=== PATIENT | female | born 1950 | race Caucasian/White ===

== ENCOUNTER 2016-04-24 09:32 | Emergency (ER) | payer OTHER ==
[~2016-04-24 09:32] MED LIST: APIX5 PO; ASPI81TA82 PO; CARB200 PO; GABA600T PO; INFL100P IV; MAGN400 PO; METO25 PO; MULT-65 PO; NORC10TA2 PO; PROT40TA PO; RANI150T PO; ZOCO40TA PO
[2016-04-24 09:47] VITALS: BP 122/67; PULSE 75; RESP 16; TEMP 98.7
[2016-04-24] MEDS ORDERED: RANI150T PO (10:20)
[2016-04-24] MEDS ORDERED: PANT40TA3 PO (10:20)
[2016-04-24] MEDS ORDERED: TEGR200T PO (10:20)
[2016-04-24] MEDS ORDERED: CARA1SUS3 PO (10:20)
[2016-04-24] MEDS ORDERED: SIMV40TA PO (10:20)
[2016-04-24] MEDS ORDERED: METO25TA3 PO (10:20)
[2016-04-24] MEDS ORDERED: ASPI81CH7 CHEW (10:20)
[2016-04-24] MEDS ORDERED: APIX5TAB PO (10:20)
[2016-04-24] MEDS ORDERED: HYDR-3535 PO (10:20)
[2016-04-24] MEDS ORDERED: GABA600T PO (10:20)
--- NOTE | 2016-04-24 10:27 | PD ---
HPI Chief Complaint: ENT Complaint Time Seen by Provider: 10:14 Travel History International Travel<30 days: No Contact w/Intl Traveler<30days: No Traveled to known affect area: No History of Present Illness HPI 66-year-old female is complaining of burning across her epigastric area and inability to swallow. She has been diagnosed with adenocarcinoma of the esophagus. She finished 28 radiation treatments about 9 days ago. About 4 days ago she started having burning across her upper chest and noted trouble with swallowing. She is able to take fluids but is unable to swallow even putting her scrambled eggs. She is currently on Pepcid, Zofran and Carafate. She has multiple other medical issues. 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 She has been blind since . She has a history of IN which she has had procedures done PFSH Past Medical History Hx Anticoagulant Therapy: Yes (81 MG ASPIRIN, DAILY) Arthritis: No Asthma: No Atrial Fibrillation: Yes Autoimmune Disease: No Blood Disorders: No Heart Rhythm Problems: No Cancer: No Cardiovascular Problems: Yes (A-FIB, CARDIAC WINDOW, ABLATION) High Cholesterol: No Chemotherapy: No Chest Pain: No Congestive Heart Failure: No COPD: No Coronary Artery Disease: Yes Diabetes: No Diminished Hearing: No Endocrine: No Gastrointestinal Disorders: Yes (CHRON'S DISEASE, GERD) GERD: No Genitourinary: No Headaches: No Hepatitis: No Hiatal Hernia: Yes (REPAIRED) Hypertension: No Immune Disorder: No Implanted Vascular Access Dvce: No Kidney Stones: Yes Musculoskeletal: Yes (CERVICAL DISCS BULDGING) Psychiatric: No Reproductive: No Respiratory: No Migraines: No Myocardial Infarction: Yes (199909/09/11) Radiation Therapy: No Renal Failure: No Seizures: Yes (RELATED TO ELECTROLYTE IMBALANCE WITH CHROHNS FLAREUP) Sickle Cell Disease: No Sleep Apnea: No Thyroid Disease: No Ulcer: No Influenza Vaccination: Yes ?: Not Menopausal: Yes : 0 Past Surgical History Abdominal Surgery: Yes (FEEDING TUBE PLACED AND REMOVED, AND REMOVED NOV 2013, [facility]) AICD: No Appendectomy: Yes Arteriovenous Shunt: No Body Medical Devices: CARDIAC STENTS, PORT LEFT CHEST Cardiac Surgery: Yes (STENTS, PORT LEFT CHEST) Cholecystectomy: Yes (1994) Coronary Stent: Yes (LEFT KNEE REPLACEMENT, THEN ABOVE KNEE AMP) Ear Surgery: No Endocrine Surgery: No Eye Surgery: No Genitourinary Surgery: No Gynecologic Surgery: No Hysterectomy: Yes Insulin Pump: No Joint Replacement: No Neurologic Surgery: No Oral Surgery: Yes (TONSILS) Pacemaker: No Thoracic Surgery: No Tonsillectomy: Yes Other Surgery: Yes (stump left) Social History Alcohol Use: Yes (WEEKENDS) Tobacco Use: Yes (QUIT 01/2016) Substance Use: No Allergies-Medications (Allergen,Severity, Reaction): Coded Allergies: Percocet (Verified Adverse Reaction, Severe, CONSTIPATION, 04/24/16) due to hx of chrons Sulfa (Verified Adverse Reaction, Severe, CRAMPS, 04/24/16) gi upset *MDRO Multi-Drug Resistant Organism (Unverified Adverse Reaction, Unknown , 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 Reported Meds & Prescriptions Reported Meds & Active Scripts Active Reported Carafate Liq (Sucralfate) 1 Gm/10 Ml Susp 1 Gm PO TID on empty stomach Eliquis (Apixaban) 5 Mg Tab 5 Mg PO BID Metoprolol Tartrate 25 Mg Tab 25 Mg PO BID Simvastatin 40 Mg Tab 40 Mg PO HS Lortab (Hydrocodone-Acetaminophen) 10-325 Mg Tab 1 Tab PO Q4H PRN Aspirin Children's (Aspirin) 81 Mg Chew 81 Mg CHEW DAILY Gabapentin 600 Mg Tab 600 Mg PO BID Tegretol (Carbamazepine) 200 Mg Tab 200 Mg PO BID Ranitidine (Ranitidine HCl) 150 Mg Tab 150 Mg PO DAILY Pantoprazole (Pantoprazole Sodium) 40 Mg Tab 40 Mg PO BID Review of Systems General / Constitutional: No: Fever, Chills Eyes: Positive: Blindness HENT: No: Headaches, Vertigo Cardiovascular: No: Chest Pain or Discomfort, Palpitations Respiratory: No: Cough Gastrointestinal: Positive: Nausea, Abdominal Pain Genitourinary: No: Urgency, Frequency Musculoskeletal: No: Myalgias Physical Exam Narrative Well-developed female SKIN: Warm and dry. HEAD: Atraumatic. Normocephalic. EYES: No scleral icterus. No injection or drainage. ENT: No nasal bleeding or discharge. Mucous membranes pink and moist. NECK: Trachea midline. No JVD. CARDIOVASCULAR: Regular rate and rhythm. No murmur appreciated. RESPIRATORY: No accessory muscle use. Clear to auscultation. Breath sounds equal bilaterally. GASTROINTESTINAL: Abdomen soft, there is epigastric tenderness without guarding or rigidity, nondistended. Hepatic and splenic margins not palpable. Radiation eagle are present in the epigastric area MUSCULOSKELETAL: No obvious deformities. No clubbing. No cyanosis. No edema. NEUROLOGICAL: Awake and alert. No obvious cranial nerve deficits. Motor grossly within normal limits. Normal speech. PSYCHIATRIC: Appropriate mood and affect; insight and judgment normal. Data Data Last Documented VS Vital Signs Date Time Temp Pulse Resp B/P Pulse Ox O2 Delivery O2 Flow Rate FiO2 04/24/16 11:19 98.3 71 16 147/72 98 Room Air Orders Electrocardiogram (04/24/16 10:24) Complete Blood Count With Diff (04/24/16 10:24) Comprehensive Metabolic Panel (04/24/16 10:24) Lipase (04/24/16 10:24) Sodium Chlor 0.9% 1000 Ml Inj (Ns 1000 M (04/24/16 10:30) Ondansetron Inj (Zofran Inj) (04/24/16 10:30) Hydromorphone Pf Inj (Dilaudid Pf Inj) (04/24/16 10:30) Pantoprazole Inj (Protonix Inj) (04/24/16 10:30) Chest, Single Ap (04/24/16 10:47) Labs Laboratory Tests Test 04/24/16 11:05 White Blood Count 1.5 TH/MM3 Red Blood Count 3.52 MIL/MM3 Hemoglobin 10.8 GM/DL Hematocrit 33.0 % Mean Corpuscular Volume 93.7 FL Mean Corpuscular Hemoglobin 30.6 PG Mean Corpuscular Hemoglobin 32.7 % Concent Red Cell Distribution Width 13.9 % Platelet Count 133 TH/MM3 Mean Platelet Volume 8.0 FL Neutrophils (%) (Auto) 42.9 % Lymphocytes (%) (Auto) 9.2 % Monocytes (%) (Auto) 46.7 % Eosinophils (%) (Auto) 0.6 % Basophils (%) (Auto) 0.6 % Neutrophils # (Auto) 0.6 TH/MM3 Lymphocytes # (Auto) 0.1 TH/MM3 Monocytes # (Auto) 0.8 TH/MM3 Eosinophils # (Auto) 0.0 TH/MM3 Basophils # (Auto) 0.0 TH/MM3 CBC Comment AUTO DIFF Differential Total Cells 100 Counted Neutrophils % (Manual) 35 % Band Neutrophils % 4 % Lymphocytes % 24 % Monocytes % 35 % Eosinophils % 2 % Neutrophils # (Manual) 0.6 TH/MM3 Differential Comment FINAL DIFF MANUAL Sodium Level 137 MEQ/L Potassium Level 3.7 MEQ/L Chloride Level 103 MEQ/L Carbon Dioxide Level 23.1 MEQ/L Anion Gap 11 MEQ/L Blood Urea Nitrogen 22 MG/DL Creatinine 1.70 MG/DL Estimat Glomerular Filtration 30 ML/MIN Rate Random Glucose 103 MG/DL Calcium Level 8.3 MG/DL Total Bilirubin 0.4 MG/DL Aspartate Amino Transf 16 U/L (AST/SGOT) Alanine Aminotransferase 14 U/L (ALT/SGPT) Alkaline Phosphatase 187 U/L Total Protein 6.1 GM/DL Albumin 2.4 GM/DL Lipase 69 U/L [facility] Medical Decision Making Medical Screen Exam Complete: Yes Emergency Medical Condition: Yes Medical Record Reviewed: Yes Differential Diagnosis Differential includes pain secondary to esophageal cancer and radiation treatment, perforated viscus, esophagitis, gastritis Narrative Course Exam is not consistent with perforation. The belly is soft. Her lab work shows neutropenia of 600. She was given Dilaudid 1 mg and had relief of the pain. I have discussed the case with Dr. Santillan covering for Dr. Ernandez. Patient had taken some Lortab at home with minimal relief of the pain. I will prescribe some Dilaudid for her to use at home as this is helped her considerably. I have also encouraged her to increase her fluids as much as possible and follow-up with ( Diagnosis Primary Impression: Adenocarcinoma of lower esophagus Scripts Hydromorphone (Dilaudid)2 Mg Tab2 Mg PO Q4H PRN (PAIN SCALE 1 TO 10) #20 TAB Ref 0 Prov:Fletcher Trevino MD 04/24/16 Disposition: 01 DISCHARGE HOME Condition: Stable Fletcher Trevino MD Apr 24, 2016 10:27
[2016-04-24] MEDS ORDERED: PANTOPRAZOLE SODIUM 40 MG VIAL IV PUSH ONE (10:30)
[2016-04-24] MEDS ORDERED: SODIUM CHLOR 0.9% 1000 ML INJ 1,000 ML IV SCH (10:30)
[2016-04-24] MEDS ORDERED: ONDANSETRON HCL 4 MG/2 ML VIAL IV PUSH ONE (10:30)
[2016-04-24] MEDS ORDERED: HYDROmorphone HCL PF 1 MG/ML VIAL IV PUSH ONE (10:30)
[2016-04-24 11:11] LABS: AUTOMATED NEUTROPHIL # 0.6 TH/MM3 (1.8-7.7); BASOPHIL % 0.6 % (0.0-2.0); EOSINOPHIL % 0.6 % (0.0-4.0); LYMPH % 9.2 % (9.0-44.0); LYMPHOCYTE # 0.1 TH/MM3 (1.0-4.8); MEAN CELL VOLUME 93.7 FL (80.0-100.0); MEAN CORPUSCULAR HEMOGLOBIN 30.6 PG (27.0-34.0); MEAN CORPUSCULAR HGB CONC 32.7 % (32.0-36.0); MONO % 46.7 % (0.0-8.0); NEUT % 42.9 % (16.0-70.0); PLATELET COUNT 133 TH/MM3 (150-450); RED BLOOD COUNT 3.52 MIL/MM3 (4.00-5.30); RED CELL DISTRIBUTION WIDTH 13.9 % (11.6-17.2); WHITE BLOOD COUNT 1.5 TH/MM3 (4.0-11.0)
[2016-04-24 11:19] VITALS: BP 147/72; PULSE 71; RESP 16; TEMP 98.3; O2SAT 98
[2016-04-24 11:20] LABS: CHLORIDE 103 MEQ/L (98-107); POTASSIUM 3.7 MEQ/L (3.5-5.1); SODIUM (NA) 137 MEQ/L (136-145)
[2016-04-24 11:21] LABS: HEMO FLAGS AUTO DIFF
[2016-04-24 11:23] LABS: ANION GAP 11 MEQ/L (5-15); BICARBONATE 23.1 MEQ/L (21.0-32.0)
[2016-04-24 11:24] LABS: BLOOD UREA NITROGEN 22 MG/DL (7-18)
[2016-04-24 11:26] LABS: ALT (GPT) 14 U/L (10-53); AST (GOT) 16 U/L (15-37)
[2016-04-24 11:27] LABS: GLOMERULAR FILTRATION RATE 30 ML/MIN (>89)
[2016-04-24 11:28] LABS: TOTAL BILIRUBIN ADULT 0.4 MG/DL (0.2-1.0)
[2016-04-24 11:29] LABS: ALKALINE PHOSPHATASE 187 U/L (45-117)
--- NOTE | 2016-04-24 11:41 | RADHPO ---
EXAM DATE/TIME: 04/24/2016 11:30 [facility] COMPARISON: CHEST SINGLE AP, July 16, 2015, 14:16. INDICATIONS : Upper chest and throat pain. MEDICAL HISTORY : Hypertension. Carcinoma, esophageal. SURGICAL HISTORY : Port placement, left chest. ENCOUNTER: Subsequent ACUITY: 2 days PAIN SCORE: 5/10 LOCATION: Bilateral upper chest middle esophagus FINDINGS: Left port catheter tip overlies the SVC. Cardiomegaly. No definite consolidation or effusion. CONCLUSION: No acute disease. Harvey Gomez MD on April 24, 2016 at 11:39 Board Certified Radiologist. This report was verified electronically.
[2016-04-24 11:49] LABS: BANDS 4 % (0-6); EOSINOPHILS 2 % (0-4); NEUTROPHIL # MANUAL DIFF 0.6 TH/MM3 (1.8-7.7); POLYS (SEG NEUTROPHILS) 35 % (16-70); SCAN/DIFF FINAL DIFF MANUAL; WBC DIFF SAMPLE 100
[2016-04-24] MEDS ORDERED: DILA2TAB2 PO (12:29)
[2016-04-24 12:39] VITALS: RESP 16
[2016-04-24 13:13] VITALS: BP 140/70
--- NOTE | 2016-04-25 17:55 | EKG ---
Date Performed: 04/24/2016 Time Performed: 10:34:00 PTAGE: 66 years EKG: Sinus rhythm Left axis deviation rSr'(V1) - probable normal variant Inferior infarct - age undetermined Possible anterior infarct - age undetermined LVH with secondary repolarization abnormality Lateral ST-T change s may be due to hypertrophy and/or ischemia When compared to previous tracing, patient is no longer T achycardic. Abnormal ECG PREVIOUS TRACING : 07/16/2015 22.30 DOCTOR: Rachana Ugarte Interpretating Date/Time 04/25/2016 17:54:49
[2016-06-24] MEDS ORDERED: HYDR-3583 PO (13:16)
[2016-08-19] MEDS ORDERED: HYDR-3583 PO (13:12)
== END 2016-04-24 13:15 | disposition home or self-care (01) ==
LOC: PHED 09:32
DX: C15.5 Malignant neoplasm of lower third of esophagus (principal); I48.91 Unspecified atrial fibrillation; K50.90 Crohn's disease, unspecified, without complications; I10 Essential (primary) hypertension; Z87.442 Personal history of urinary calculi; I25.2 Old myocardial infarction
CPT/HCPCS: 71010; 80053; 83690; 85007; 85027; 93005; 96361; 96374; 96375; 99284; C9113; J1170; J1642; J2405; J7030

== ENCOUNTER 2016-07-27 12:12 | Day surgery (SDC) | payer OTHER ==
[~2016-07-27 12:12] MED LIST changes: -APIX5 PO; +APIX5TAB PO; +ASPI81CH7 CHEW; -ASPI81TA82 PO; +CARA1SUS3 PO; -CARB200 PO; +DILA2TAB2 PO; +HYDR-3535 PO; +HYDR-3583 PO; -INFL100P IV; -MAGN400 PO; -METO25 PO; +METO25TA3 PO; -MULT-65 PO; -NORC10TA2 PO; +PANT40TA3 PO; -PROT40TA PO; +SIMV40TA PO; +TEGR200T PO; -ZOCO40TA PO
[2016-07-27 13:26] VITALS: BP 150/78; PULSE 53; RESP 20; TEMP 98; O2SAT 90
[2016-07-27 14:14] LABS: AUTOMATED NEUTROPHIL # 4.2 TH/MM3 (1.8-7.7); BASOPHIL % 0.7 % (0.0-2.0); EOSINOPHIL # 0.2 TH/MM3 (0-0.4); EOSINOPHIL % 3.9 % (0.0-4.0); HEMATOCRIT 36.7 % (35.0-46.0); HEMO FLAGS DIFF FINAL; LYMPH % 8.2 % (9.0-44.0); LYMPHOCYTE # 0.5 TH/MM3 (1.0-4.8); MEAN CELL VOLUME 105.2 FL (80.0-100.0); MEAN CORPUSCULAR HEMOGLOBIN 35.7 PG (27.0-34.0); MEAN CORPUSCULAR HGB CONC 33.9 % (32.0-36.0); MONO % 11.5 % (0.0-8.0); NEUT % 75.7 % (16.0-70.0); PLATELET COUNT 224 TH/MM3 (150-450); RED BLOOD COUNT 3.49 MIL/MM3 (4.00-5.30); RED CELL DISTRIBUTION WIDTH 17.1 % (11.6-17.2); WHITE BLOOD COUNT 5.5 TH/MM3 (4.0-11.0)
[2016-07-27 14:27] LABS: APTT (PATIENT) 55.9 SEC (24.3-30.1)
[2016-07-27 15:45] VITALS: BP 167/87; PULSE 58; RESP 20; O2SAT 90
[2016-07-27 16:00] VITALS: BP 159/78; PULSE 59; RESP 20; O2SAT 91
[2016-07-27] MEDS ORDERED: HEPARIN SODIUM - IV 10,000 UNITS/10 ML VIAL OTHER ONE (16:15)
--- NOTE | 2016-07-27 16:45 | RADRPT ---
EXAM DATE/TIME: 07/27/2016 16:01 [facility] COMPARISON: CHEST SINGLE AP, April 24, 2016, 11:30. INDICATIONS : S/p left side thoracentesis MEDICAL HISTORY : Carcinoma, esophageal. SURGICAL HISTORY : None. ENCOUNTER: Initial ACUITY: 1 day PAIN SCORE: 0/10 LOCATION: Left cranial FINDINGS: A single view of the chest demonstrates bilateral pleural effusions, left greater than right with con comitant atelectatic changes in the bases. No pneumothorax post reported thoracentesis. Left IJ Infus e-a-Port catheter is stable in position with the tip projecting over the central venous system. Heart size is prominent. Osseous structures are intact with a dextroscoliosis of the thoracolumbar spine. Findings of a coil mesh repair of a presumed anterior abdominal wall hernia.CONCLUSION: 1. Bilateral pleural effusions, left greater than right. Concomitant bibasilar atelectatic changes. 2. No pneumothorax post thoracentesis.. Son Cross MD on July 27, 2016 at 16:41 Board Certified Radiologist. This report was verified electronically.
[2016-07-27 17:06] LABS: TOTAL PROTEIN,PLEURAL FLUID 1.9 GM/DL
--- NOTE | 2016-07-27 17:58 | RADRPT ---
EXAM DATE/TIME: 07/27/2016 15:03 [facility] COMPARISON: No previous studies available for comparison. EXTERNAL COMPARISON : [facility], CT Chest, 06/10/16 and 12/10/15. [facility], Chest xray 10/20/11. INDICATIONS : Pleural effusion, bilateral. MEDICAL HISTORY : Blindness. [place]. Afib. GERD. Crohn's disease. cad. SURGICAL HISTORY : Left leg amputation. Left knee replacement. Hiatel hernia. Feed tube placement and removal. Appen dectomy. Cardiac stent. Left chest port. Hysterectomy. Tonsillectomy. ENCOUNTER: Initial ACUITY: 1 day PAIN SCORE: 0/10 LOCATION: Right chest MEASUREMENTS: SKIN TO PARIETAL PLEURA: 1.3 cm SKIN TO MAX SAFE DEPTH: 4.5 cm ESTIMATED FLUID VOLUME: 531 cc FLUID COMPOSITION: simple FINDINGS: Pleural effusion as above. A david was placed on the skin surface superficial to the pleural fluid col lection. CONCLUSION: Pleural margin as described above.. Bipin Del Rosario MD FACR on July 27, 2016 at 17:56 Board Certified Radiologist. This report was verified electronically.
--- NOTE | 2016-07-27 17:58 | RADRPT ---
EXAM DATE/TIME: 07/27/2016 15:03 [facility] COMPARISON: No previous studies available for comparison. EXTERNAL COMPARISON : [facility], CT THORAX, W/O CONTRAST, June 10, 2016[facility] INDICATIONS : Pleural effusion bilatera. MEDICAL HISTORY : Blindness. [place]. Afib. GERD. Crohn's disease. cad. SURGICAL HISTORY : Left leg amputation. Hiatel hernia. Feeding tube placed and removal. A ppendectomy. Cardiac stent. Left chest port. Left knee replacement. Hysterectomy. Tonsillectomy. ENCOUNTER: Initial ACUITY: 1 day PAIN SCORE: 0/10 LOCATION: Left chest MEASUREMENTS: SKIN TO PARIETAL PLEURA: 1.3 cm SKIN TO MAX SAFE DEPTH: 3.4 cm ESTIMATED FLUID VOLUME: 475 cc FLUID COMPOSITION: simple FINDINGS: Pleural effusion as above. A david was placed on the skin surface superficial to the pleural fluid col lection. CONCLUSION: Pleural marking as described above. Bipin Del Rosario MD FACR on July 27, 2016 at 17:57 Board Certified Radiologist. This report was verified electronically.
[2016-07-27 18:04] LABS: PLEURAL FLUID LYMPHS 42 %; PLEURAL FLUID PH 7.5
--- NOTE | 2016-07-27 18:45 | MR ---
cc: CHRISTINE TODD DATE 07/27/2016 PROCEDURE Left thoracentesis. PREOPERATIVE DIAGNOSIS Left pleural effusion. PROCEDURE Informed consent was obtained from the patient. The procedure and the complications including complications of as needed, pneumothorax requiring chest tube, bleeding complications, injury to blood vessels, lungs, nerves, arrhythmia, hypoxia were explained and she consented for the procedure. The left side of the chest was marked with ultrasound and it was cleaned with Chloraprep 1%. Lidocaine infiltration anesthesia was used with a 16 gauge catheter. Thoracentesis was done, yellow fluid was obtained. It was hooked to a vacuum bottle and about 200 cc of fluid was removed, then the fluid stopped coming and the procedure was terminated. She tolerated the procedure well. Pleural fluid sent for protein, glucose, LDH, cell count and differential, routine culture and cytology. Postprocedure chest x-ray ordered to rule out pneumothorax. MD LATRICE Arellano/NASRA /3:47 PM /6:25 PM
--- NOTE | 2016-07-28 10:07 | MH ---
cc: DO Evan CARDOZO MD, ARJUN DATE OF ADMISSION 07/27/2016 DATE OF 1950 CHIEF COMPLAINT The patient will come for thoracentesis on 07/27/2016 HISTORY OF PRESENT ILLNESS Ms. Pete is a 66 year old female who is blind since . She has a history of cancer of the esophagus. She has received 20 radiation treatments and six chemotherapy treatments. She is following with Dr. Vipin Escamilla. She had a CT scan of the chest done which shows she has moderate bilateral pleural effusion with compressive atelectasis. No large soft tissue metastasis. She had a PET scan done which shows mild ectasia in the esophagus with SUV of 3.58 and has increasing bilateral pleural effusion. She denies any shortness breath. Does not have cough or sputum. No fever or chills. No night sweats. PAST MEDICAL HISTORY 1. History of COPD. 2. Cancer of the esophagus status post chemotherapy and radiation therapy 3. Seizure disorder, 4. Atrial fibrillation status post cardioversion. 5. History of coronary artery disease status post [place], 6. Hypertension, 7. Chronic kidney disease, 8. Crohn's disease 9. Raynaud's disease. 10. History of disk fusion 11. History of knee surgery which was complicated by infection and she required a left above-knee amputation 12. History of pericardial window placement. 13. History of cholecystectomy. MEDICATIONS 1. Eliquis 5 mg twice a day 2. Simvastatin 40 mg a day. 3. Protonix 40 mg a day. 4. Metoprolol 25 mg twice a day. 5. [place] 10/325 mg a day. 6. Neurontin 600 mg twice a day. 7. Tegretol 200 mg twice a day. ALLERGIES SULFA SOCIAL HISTORY She has 30 year history of smoking half a pack a day which she quit one year ago. No alcohol abuse. She is retired. 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 FAMILY HISTORY She is for 34 years. She has no children. Has one brother. Both parents are . Father with lymphoma. REVIEW OF SYSTEMS She denies any weight loss, fever or chills, no night sweats. No nausea or vomiting. PHYSICAL EXAMINATION GENERAL: An elderly female not in acute distress. VITAL SIGNS: Blood pressure 126/74, heart rate 67, respirations 16, oxygen saturation 96%. HEENT: She is blind from both eyes. Oral mucosa and nasal mucosa normal. NECK: Supple. JVP not raised. CHEST: She has dull percussion with decreased breath sounds at both bases. CARDIOVASCULAR: S1, S2 normal. ABDOMEN: Benign. EXTREMITIES: She has left AKA. IMPRESSION 1. Bilateral pleural effusion. 2. atelectasis 3. Chronic obstructive pulmonary disease 4. Seizure disorder. 5. Atrial fibrillation status post cardioversion 6. Hypotension. 7. Coronary artery disease status post stent placement 8. History of cancer of the esophagus status post chemotherapy and radiation therapy. 9. Raynaud's disease 10. Crohn's disease 11. Status post left AKA. 12. History of the pericardial effusion. PLAN I discussed with the patient and her she will need thoracentesis. I explained to them the procedure and the complications including complication of anesthesia, pneumothorax requiring chest tube, bleeding complication, injury to the blood vessels, lungs, nerves, arrhythmia, hypoxia which she understands well and wants to proceed with it. She will hold Eliquis for two days. We will send the pleural fluid for protein, glucose, LDH, Cell count and differential. Further treatment will depend on the result of the above. MD LATRICE Arellano/ /9:45 PM /10:05 AM MTDMarbin
[2016-08-19] MEDS ORDERED: HYDR-3583 PO (13:12)
[2016-10-19] MEDS ORDERED: HYDR-3583 PO (11:44)
== END 2016-07-27 16:30 | disposition home or self-care (01) ==
LOC: HROP 12:12 → HRIP 12:16 → HROP 16:30
PROVIDERS: ATTEND Specialist
DX: J90 Pleural effusion, not elsewhere classified (principal); J44.9 Chronic obstructive pulmonary disease, unspecified; I25.10 Atherosclerotic heart disease of native coronary artery without angina pectoris; I48.91 Unspecified atrial fibrillation; I25.2 Old myocardial infarction; I12.9 Hypertensive chronic kidney disease with stage 1 through stage 4 chronic kidney disease, or unspecified chronic kidney disease; N18.9 Chronic kidney disease, unspecified; K21.9 Gastro-esophageal reflux disease without esophagitis; K50.90 Crohn's disease, unspecified, without complications; I95.9 Hypotension, unspecified; I73.00 Raynaud's syndrome without gangrene; H54.0 Blindness, both eyes; G40.909 Epilepsy, unspecified, not intractable, without status epilepticus; Z79.01 Long term (current) use of anticoagulants; Z95.5 Presence of coronary angioplasty implant and graft; Z85.01 Personal history of malignant neoplasm of esophagus; Z92.21 Personal history of antineoplastic chemotherapy; Z92.3 Personal history of irradiation; Z87.891 Personal history of nicotine dependence; Z90.49 Acquired absence of other specified parts of digestive tract; Z90.710 Acquired absence of both cervix and uterus; Z89.612 Acquired absence of left leg above knee
CPT/HCPCS: 71010; 76604; 82945; 82947; 83615; 83986; 84155; 84157; 85025; 85610; 85730; 87070; 87205; 88112; 88305; 89051; J1642; J1644; 32554

== ENCOUNTER → 2016-12-28 | Day surgery (SDC) | payer OTHER ==
[~2016-12-28] MED LIST changes: +ACETYLCYSTEINE 20% 6,000 MG/30 ML ORAL SOLN VIAL ONE; +ALUMINUM/MAGNESIUM/SIMETH 30 ML CUP ONE; -DILA2TAB2 PO; -HYDR-3535 PO; +LIAL1.2T PO; +LIDO1SOL8 SWISH-SWAL; +MEDR4PAK PO; +MEPERIDINE HCL 25 MG/ML VIAL ONE; +PROPOFOL 200 MG/20 ML AMP IV ONE; +STERILE WATER FOR INJECTION 20 ML VIAL ONE
--- NOTE | 2016-12-28 10:23 | GIPROC ---
[facility] [address] [facility], [address] EGD PROCEDURE REPORT EXAM DATE: 12/28/2016 PATIENT NAME: Hortensia Pete V MR #: [id number] BIRTHDATE: 1950 ATTENDING: Ronda Persaud MD ORDER #: [id number] FINISHING AREA OPERATOR: Zuly Nelson RN STATUS: outpatient INDICATIONS: The patient is a 66 yr old female here for an EGD due to He's high grade dysplasia PROCEDURE PERFORMED: EGD w/ ablation MEDICATIONS: None and Per Anesthesia. TOPICAL ANESTHETIC: CONSENT: The patient understands the risks and benefits of the procedure and understands that these risks include, but are not limited to: sedation, allergic reaction, infection, perforation and/or bleeding. Alternative means of evaluation and treatment include, among others: physical exam, x-rays, and/or surgical intervention. The patient elects to proceed with this endoscopic procedure. medical equipment was checked for proper function. Hand hygiene and appropriate measures for infection prevention was taken. After the risks, benefits and alternatives of the procedure were thoroughly explained, Informed consent was verified, confirmed and timeout was successfully executed by the treatment team. The patient was anesthetized with topical anesthesia and the EG-[id number] ([id number]) and [id number] ([id number]) endoscope was introduced through the mouth and advanced to the second portion of the duodenum. Retroflexed views revealed a hiatal hernia The gastroscope was then slowly withdrawn and removed. ESOPHAGUS: There was a 5cm segment of He's esophagus found in the distal esophagus. The length of circumferential He's was 3cm ([place] C3) and the length of Maximal extent of He's was 5cm ([place] M5). There was no nodular mucosa noted in the He's segment. RFA procedure: Given the above findings, the decision was made to treat the He's esophagus with endoscopic ablation, using the Halo 90 cap device. The cap ablation device was placed on the endoscope and the esophagus was treated at 10J/cm2. RF ablation of the circumferential He's tissue and of all He's tissue was performed. Each area was treated x 2, the ablation zone was cleaned of coagulative debris with the ablation device, irrigation and suction using the endoscope. The area was then treated x 2 again until a chamois colored area was observed at the site of treatment. A total of 16 ablations were performed. STOMACH: There was erythematous moderate gastritis in the gastric antrum. DUODENUM: The duodenal mucosa appeared normal in the bulb and second portion of the duodenum. ADVERSE EVENTS: There were no complications. IMPRESSIONS: 1. There was a 5cm segment of He's esophagus found in the distal esophagus; RF ablation of the circumferential He's tissue and of all He's tissue was performed 2. There was erythematous gastritis in the gastric antrum 3. Normal duodenal mucosa in the bulb and second portion of the duodenum 4. Retroflexed views revealed a hiatal hernia RECOMMENDATIONS: 1. Await biopsy results. Biopsy results will not be ready for 7-10 days. If you don't hear from us in two weeks, call our office for biopsy results. 2. Anti-reflux regimen 3. Continue PPI 4. Avoid NSAIDS PATIENT CONDITION: stable DISPOSITION: Home REPEAT EXAM: Return 3 months EGD Ronda Persaud MD eSigned: Ronda Persaud MD 12/28/2016 10:23 AM cc: Marty Chavez [facility] Katheryn Connolly M.D. PATIENT NAME: Hortensia Pete V MR#: [id number]
== END | disposition home or self-care (01) ==
LOC: ESDC 08:06
PROVIDERS: ATTEND Internal Medicine Gastroenterology
DX: K22.711 Barrett's esophagus with high grade dysplasia (principal); K29.70 Gastritis, unspecified, without bleeding; K44.9 Diaphragmatic hernia without obstruction or gangrene
CPT/HCPCS: 00740; 43270; J1642; J2175

== ENCOUNTER → 2017-02-02 | Outpatient (CLI) | payer OTHER ==
[~2017-02-02] VITALS: Ht 162.6 cm; Wt 59.0 kg
[~2017-02-02] MED LIST changes: -ACETYLCYSTEINE 20% 6,000 MG/30 ML ORAL SOLN VIAL ONE; -ALUMINUM/MAGNESIUM/SIMETH 30 ML CUP ONE; +CHLORHEXIDINE GLUCONATE 2 % 1 PACK (2 CLOTHS) TOPICAL PRN; +INSULIN HUMAN REGULAR 1,000 UNITS/10 ML VIAL SQ PRN; +LACTATED RINGER'S 1000 ML IV PRN; -MEDR4PAK PO; -MEPERIDINE HCL 25 MG/ML VIAL ONE; +METOPROLOL TARTRATE 25 MG TAB PO PRN; +POVIDONE IODINE 5% (ANTISEPSIS KIT) 4 APPLICATIONS EACH NARE PRN; +SODIUM CHLORID 0.9% 500 ML IV PRN; -STERILE WATER FOR INJECTION 20 ML VIAL ONE
--- NOTE | 2017-02-02 11:13 | GIPROC ---
[facility] [address] [facility]. [facility], [address] EGD PROCEDURE REPORT EXAM DATE: 02/02/2017 PATIENT NAME: Hortensia Pete V MR #: [id number] BIRTHDATE: 1950 ATTENDING: Ronda Persaud MD ORDER #: [id number] WINDOW SHADE INSTALLER: Carey Veronica RN STATUS: outpatient INDICATIONS: The patient is a 67 yr old female here for an EGD due to history of esophageal reflux, history of He's esophagus, and dysphagia PROCEDURE PERFORMED: EGD, diagnostic MEDICATIONS: None and Per Anesthesia. TOPICAL ANESTHETIC: CONSENT: The patient understands the risks and benefits of the procedure and understands that these risks include, but are not limited to: sedation, allergic reaction, infection, perforation and/or bleeding. Alternative means of evaluation and treatment include, among others: physical exam, x-rays, and/or surgical intervention. The patient elects to proceed with this endoscopic procedure. medical equipment was checked for proper function. Hand hygiene and appropriate measures for infection prevention was taken. After the risks, benefits and alternatives of the procedure were thoroughly explained, Informed consent was verified, confirmed and timeout was successfully executed by the treatment team. The patient was anesthetized with topical anesthesia and the Pentax EG-[id number] endoscope was introduced through the mouth and advanced to the second portion of the duodenum. Retroflexed views revealed a hiatal hernia The gastroscope was then slowly withdrawn and removed. ESOPHAGUS: There was [place] Class C esophagitis noted. There was a 4cm segment of He's esophagus found in the distal esophagus. The length of circumferential He's was 4cm ([place] C4) and the length of Maximal extent of He's was 4cm ([place] M4). STOMACH: There was erythematous moderate gastritis in the gastric antrum. DUODENUM: The duodenal mucosa appeared normal in the bulb and second portion of the duodenum. ADVERSE EVENTS: There were no complications. IMPRESSIONS: 1. There was [place] Class C esophagitis noted 2. There was a 4cm segment of He's esophagus found in the distal esophagus 3. There was erythematous gastritis in the gastric antrum 4. Normal duodenal mucosa in the bulb and second portion of the duodenum 5. Retroflexed views revealed a hiatal hernia RECOMMENDATIONS: 1. Anti-reflux regimen 2. Continue PPI 3. Avoid NSAIDS PATIENT CONDITION: stable DISPOSITION: Home REPEAT EXAM: Return 3 months EGD Ronda Persaud MD eSigned: Ronda Persaud MD 02/02/2017 11:12 AM cc: Natasha Garcia M.D. PATIENT NAME: Hortensia Pete V MR#: [id number]
[2017-02-02 11:24] VITALS: BP 123/79; PULSE 94; RESP 18; TEMP 96.9; O2SAT 99
== END ==
LOC: HSDC 08:04
PROVIDERS: ATTEND Internal Medicine Gastroenterology
DX: K21.9 Gastro-esophageal reflux disease without esophagitis (principal); K22.70 Barrett's esophagus without dysplasia; R13.10 Dysphagia, unspecified; K44.9 Diaphragmatic hernia without obstruction or gangrene; K20.9 Esophagitis, unspecified; K29.70 Gastritis, unspecified, without bleeding

== ENCOUNTER 2017-04-20 22:38 | Inpatient (IN) | payer OTHER, MEDICARE ==
[~2017-04-20] VITALS: Ht 162.6 cm; Wt 84.0 kg
[~2017-04-20 22:38] MED LIST changes: -CHLORHEXIDINE GLUCONATE 2 % 1 PACK (2 CLOTHS) TOPICAL PRN; -INSULIN HUMAN REGULAR 1,000 UNITS/10 ML VIAL SQ PRN; -LACTATED RINGER'S 1000 ML IV PRN; -METOPROLOL TARTRATE 25 MG TAB PO PRN; -POVIDONE IODINE 5% (ANTISEPSIS KIT) 4 APPLICATIONS EACH NARE PRN; -PROPOFOL 200 MG/20 ML AMP IV ONE; -SODIUM CHLORID 0.9% 500 ML IV PRN
[2017-04-20 22:45] VITALS: BP 118/57; PULSE 84; RESP 18; TEMP 98.9; O2SAT 96
[2017-04-20] MEDS ORDERED: SODIUM CHLOR 0.9% 1000 ML INJ 1,000 ML IV SCH (22:48)
[2017-04-20] MEDS ORDERED: ONDANSETRON HCL 4 MG/2 ML VIAL IVP ONE (23:00)
[2017-04-20] MEDS ORDERED: SODIUM CHLORIDE 0.9% FLUSH 10 ML FLUSH IV FLUSH PRN (23:00)
[2017-04-20] MEDS ORDERED: OMEP20TA93 PO (23:02)
[2017-04-20] MEDS ORDERED: LOMO2.5T PO (23:02)
--- NOTE | 2017-04-20 23:17 | PD ---
HPI Chief Complaint: GI Complaint Time Seen by Provider: 22:42 Travel History International Travel<30 days: No Contact w/Intl Traveler<30days: No Traveled to known affect area: No History of Present Illness HPI 67-year-old female with history of blindness, CAD with cardiac stents, Crohn's disease, esophageal cancer status post chemotherapy and radiation followed by oncologist Ludy Tay on Eliquis, Raynaud's, left AKA, hypertension, brought in by ambulance from home for evaluation of nausea, vomiting, diarrhea, and abdominal pain. Symptoms have been going on since yesterday evening. Patient's who has some degree of blindness states that her emesis looked clear/oranges and he did not notice any blood. Currently the patient denies abdominal pain, however the patient's reports that she has been complaining of abdominal pain all day. Last chemotherapy and radiation was in April of this year. She had an esophageal ablation procedure done about 4 months ago. Patient denies feeling fevers or chills. She denies chest pain or dyspnea. She is able to swallow and tolerate her secretions. PFSH Past Medical History Hx Anticoagulant Therapy: Yes (81 MG ASPIRIN, DAILY) Arthritis: No Asthma: No Atrial Fibrillation: Yes Autoimmune Disease: No Blood Disorders: No Heart Rhythm Problems: No Cancer: No Cardiovascular Problems: Yes (A-FIB, CARDIAC WINDOW, ABLATION) High Cholesterol: No Chemotherapy: No Chest Pain: No Congestive Heart Failure: No COPD: No Coronary Artery Disease: Yes Diabetes: No Diminished Hearing: No Endocrine: No Gastrointestinal Disorders: Yes (CHRON'S DISEASE, GERD) GERD: No Genitourinary: No Headaches: No Hepatitis: No Hiatal Hernia: Yes (REPAIRED) Heparin Induced Thrombocytopen: No Hypertension: Yes Immune Disorder: No Implanted Vascular Access Dvce: No Kidney Stones: Yes Medical other: No Musculoskeletal: Yes (CERVICAL DISCS BULDGING) Psychiatric: No Reproductive: No Respiratory: No Migraines: No Myocardial Infarction: Yes (199909/09/11) Radiation Therapy: No Renal Failure: No Seizures: Yes (RELATED TO ELECTROLYTE IMBALANCE WITH CHROHNS FLAREUP) Sickle Cell Disease: No Sleep Apnea: No Thyroid Disease: No Ulcer: No Tetanus Vaccination: < 5 Years Influenza Vaccination: Yes ?: Not Menopausal: Yes : 0 Past Surgical History Abdominal Surgery: Yes (FEEDING TUBE PLACED AND REMOVED, AND REMOVED NOV 2013, [facility]) AICD: No Appendectomy: Yes Arteriovenous Shunt: No Body Medical Devices: CARDIAC STENTS, PORT LEFT CHEST Cardiac Surgery: Yes (STENTS, PORT LEFT CHEST) Cholecystectomy: Yes (1994) Coronary Stent: Yes (LEFT KNEE REPLACEMENT, THEN ABOVE KNEE AMP) Ear Surgery: No Endocrine Surgery: No Eye Surgery: No Genitourinary Surgery: No Gynecologic Surgery: No Hysterectomy: Yes Insulin Pump: No Joint Replacement: No Neurologic Surgery: No Oral Surgery: Yes (TONSILS) Pacemaker: No Thoracic Surgery: No Tonsillectomy: Yes Other Surgery: Yes (stump left) Social History Alcohol Use: Yes (WEEKENDS) Tobacco Use: Yes (QUIT 01/2016) Substance Use: No Allergies-Medications (Allergen,Severity, Reaction): Coded Allergies: Sulfa (Sulfonamide Antibiotics) (Unverified Adverse Reaction, Severe, CRAMPS, 04/20/17) gi upset acetaminophen (Unverified Adverse Reaction, Severe, CONSTIPATION, 04/20/17 ) due to hx of chrons oxycodone (Unverified Adverse Reaction, Severe, CONSTIPATION, 04/20/17) due to hx of chrons Reported Meds & Prescriptions Reported Meds & Active Scripts Active Hydrocodone-Acetaminophen 10-325 mg Tab 1 Tab PO Q6H PRN Reported Omeprazole 20 Mg Tab 20 Mg PO DAILY Lomotil (Diphenoxylate-Atropine) 2.5-0.025 Mg Tab 1 Tab PO Q6H PRN Lidocaine Viscous Liq 2 % Liqd 5 Ml SWISH-SWAL DIRECTED PRN Lialda (Mesalamine) 1.2 Gm Tabdr 1.2 Gm PO BID Take with a meal. Carafate Liq (Sucralfate) 1 Gm/10 Ml Susp 1 Gm PO TID on empty stomach Eliquis (Apixaban) 5 Mg Tab 5 Mg PO BID Metoprolol Tartrate 25 Mg Tab 25 Mg PO BID Simvastatin 40 Mg Tab 40 Mg PO HS Aspirin Children's (Aspirin) 81 Mg Chew 81 Mg CHEW DAILY Gabapentin 600 Mg Tab 600 Mg PO BID Tegretol (Carbamazepine) 200 Mg Tab 200 Mg PO BID Ranitidine (Ranitidine HCl) 150 Mg Tab 150 Mg PO DAILY Pantoprazole (Pantoprazole Sodium) 40 Mg Tab 40 Mg PO BID Review of Systems Except as stated in HPI: all other systems reviewed are Neg Physical Exam Narrative GENERAL: Well-developed, thin, awake, alert, no apparent distress. SKIN: Cool to touch with mottling and cyanosis of fingers and toes. No rash. HEAD: Atraumatic. Normocephalic. EYES: Clouded corneas bilaterally. No scleral icterus or scleral injection. ENT: Mucous membranes pink and dry. NECK: Trachea midline. No JVD. CARDIOVASCULAR: Regular rate and rhythm. No murmur appreciated. RESPIRATORY: No accessory muscle use. Clear to auscultation. Breath sounds equal bilaterally. GASTROINTESTINAL: Abdomen soft, non-tender, nondistended. . MUSCULOSKELETAL: Left AKA with skin exam as above. NEUROLOGICAL: Awake and alert. No obvious cranial nerve deficits. Motor grossly within normal limits. Normal speech. PSYCHIATRIC: Appropriate mood and affect; insight and judgment normal. Data Data Last Documented VS Vital Signs Date Time Temp Pulse Resp B/P (MAP) Pulse Ox O2 Delivery O2 Flow Rate FiO2 04/20/17 23:57 82 18 108/52 (70) 96 Room Air 04/20/17 22:45 98.9 Orders Orders Complete Blood Count With Diff (04/20/17 22:48) Comprehensive Metabolic Panel (04/20/17 22:48) Lipase (04/20/17 22:48) Lactic Acid (04/20/17 22:48) Prothrombin Time / Inr (Pt) (04/20/17 22:48) Urinalysis - C+S If Indicated (04/20/17 22:48) Iv Access Insert/Monitor (04/20/17 22:48) Ecg Monitoring (04/20/17 22:48) Oximetry (04/20/17 22:48) Ondansetron Inj (Zofran Inj) (04/20/17 23:00) Sodium Chlor 0.9% 1000 Ml Inj (Ns 1000 M (04/20/17 22:48) Sodium Chloride 0.9% Flush (Ns Flush) (04/20/17 23:00) Influenzae A/B Antigen (04/20/17 22:48) Chest, Single Ap (04/20/17 ) B-Type Natriuretic Peptide (04/20/17 23:51) Ckmb (Isoenzyme) Profile (04/20/17 23:25) Troponin I (04/20/17 23:25) Ct Abd/Pel W/O Iv Contrast (04/20/17 23:58) Ct Thorax/ Chest Wo Iv Contras (04/20/17 ) Labs Laboratory Tests Test 04/20/17 23:25 White Blood Count 9.1 TH/MM3 Red Blood Count 3.64 MIL/MM3 Hemoglobin 11.5 GM/DL Hematocrit 35.8 % Mean Corpuscular Volume 98.3 FL Mean Corpuscular Hemoglobin 31.6 PG Mean Corpuscular Hemoglobin Concent 32.1 % Red Cell Distribution Width 14.1 % Platelet Count 250 TH/MM3 Mean Platelet Volume 8.8 FL Neutrophils (%) (Auto) 76.4 % Lymphocytes (%) (Auto) 4.0 % Monocytes (%) (Auto) 18.4 % Eosinophils (%) (Auto) 0.2 % Basophils (%) (Auto) 1.0 % Neutrophils # (Auto) 6.9 TH/MM3 Lymphocytes # (Auto) 0.4 TH/MM3 Monocytes # (Auto) 1.7 TH/MM3 Eosinophils # (Auto) 0.0 TH/MM3 Basophils # (Auto) 0.1 TH/MM3 CBC Comment AUTO DIFF Prothrombin Time 10.7 SEC Prothromb Time International Ratio 1.1 RATIO Blood Urea Nitrogen 53 MG/DL Creatinine 2.50 MG/DL Random Glucose 96 MG/DL Total Protein 6.3 GM/DL Albumin 2.6 GM/DL Calcium Level 8.3 MG/DL Alkaline Phosphatase 397 U/L Aspartate Amino Transf (AST/SGOT) 45 U/L Alanine Aminotransferase (ALT/SGPT) 21 U/L Total Bilirubin 0.4 MG/DL Sodium Level 134 MEQ/L Potassium Level 3.7 MEQ/L Chloride Level 104 MEQ/L Carbon Dioxide Level 20.4 MEQ/L Anion Gap 10 MEQ/L Estimat Glomerular Filtration Rate 19 ML/MIN Lactic Acid Level 1.3 mmol/L Lipase 43 U/L [facility] Medical Decision Making Medical Screen Exam Complete: Yes Emergency Medical Condition: Yes Medical Record Reviewed: Yes Differential Diagnosis Gastroenteritis, dehydration, acute intra-abdominal infection, metabolic abnormality, influenza Narrative Course Vital signs are within normal limits. CBC: WBC 9.1, hemoglobin 11.5, hematocrit 35.8, platelets 250, neutrophils 76%, monocytes 18.4%, lymphocytes 4%. CMP is remarkable for creatinine 2.5 which is slightly worse than her baseline of 2, BUN 53, GFR 19, bicarbonate 20.4, otherwise essentially unremarkable. Chest x-ray: Mild bilateral diffuse interstitial opacity indicating possible mild pulmonary edema. Patchy atelectasis or consolidation in the mid left lung. Chronic cardiac silhouette enlargement. At approximately midnight at the end of my shift the patient was signed out to Dr. Vera follow-up with chemistry, CT abdomen, CT thorax, and disposition. Patient made aware of all findings into this point and states that she feels well and feels better after receiving Zofran and if everything is normal would like to be discharged home. Arya Fulton MD Apr 20, 2017 23:17
--- NOTE | 2017-04-20 23:35 | RADRPT ---
EXAM DATE/TIME: 04/20/2017 23:14 [facility] COMPARISON: CHEST SINGLE AP, July 27, 2016, 16:01. INDICATIONS : Shortness of breath starting today MEDICAL HISTORY : Carcinoma, esophageal. Afib. SURGICAL HISTORY : Appendectomy. Cardiac stent. Left chest port. ENCOUNTER: Initial ACUITY: 1 day PAIN SCORE: 0/10 LOCATION: Bilateral chest FINDINGS: Single AP view of the chest. Left-sided [id number] remains in place. Mild diffuse bilateral inters titial pulmonary opacity. Focal confluent opacity in the mid left lung laterally similar appearance t o the opacity seen in this location on the prior chest x-ray of 07/27/2016. Moderate cardiac silhouette enlargement unchanged. No evidence of pleural effusion or pneumothorax. CONCLUSION: 1. Mild bilateral diffuse interstitial opacity indicating possible mild pulmonary edema. 2. Patchy atelectasis or consolidation in the mid left lung. 3. Chronic cardiac silhouette enlargement. Hawk Osullivan MD on April 20, 2017 at 23:30 Board Certified Radiologist. This report was verified electronically.
[2017-04-20 23:40] LABS: AUTOMATED NEUTROPHIL # 6.9 TH/MM3 (1.8-7.7); BASOPHIL # 0.1 TH/MM3 (0-0.2); EOSINOPHIL % 0.2 % (0.0-4.0); HEMATOCRIT 35.8 % (35.0-46.0); HEMOGLOBIN 11.5 GM/DL (11.6-15.3); LYMPHOCYTE # 0.4 TH/MM3 (1.0-4.8); MEAN CELL VOLUME 98.3 FL (80.0-100.0); MEAN CORPUSCULAR HEMOGLOBIN 31.6 PG (27.0-34.0); MEAN CORPUSCULAR HGB CONC 32.1 % (32.0-36.0); MEAN PLATELET VOLUME 8.8 FL (7.0-11.0); MONO % 18.4 % (0.0-8.0); MONOCYTE # 1.7 TH/MM3 (0-0.9); NEUT % 76.4 % (16.0-70.0); PLATELET COUNT 250 TH/MM3 (150-450); RED BLOOD COUNT 3.64 MIL/MM3 (4.00-5.30); RED CELL DISTRIBUTION WIDTH 14.1 % (11.6-17.2); WHITE BLOOD COUNT 9.1 TH/MM3 (4.0-11.0)
[2017-04-20 23:47] LABS: CHLORIDE 104 MEQ/L (98-107); SODIUM (NA) 134 MEQ/L (136-145)
[2017-04-20 23:50] LABS: CALCIUM 8.3 MG/DL (8.5-10.1)
[2017-04-20 23:51] LABS: ALBUMIN 2.6 GM/DL (3.4-5.0); BICARBONATE 20.4 MEQ/L (21.0-32.0); BLOOD UREA NITROGEN 53 MG/DL (7-18); GLUCOSE,RANDOM 96 MG/DL (74-106); INTERNATIONAL NORMALIZED RATIO 1.1 RATIO; LIPASE 43 U/L (73-393); PROTHROMBIN TIME - PATIENT 10.7 SEC (9.8-11.6)
[2017-04-20 23:54] LABS: ALT (GPT) 21 U/L (10-53); AST (GOT) 45 U/L (15-37); GLOMERULAR FILTRATION RATE 19 ML/MIN (>89)
[2017-04-20 23:55] LABS: TOTAL BILIRUBIN ADULT 0.4 MG/DL (0.2-1.0); TOTAL PROTEIN 6.3 GM/DL (6.4-8.2)
[2017-04-20 23:57] VITALS: BP 108/52; PULSE 82; RESP 18; O2SAT 96
[2017-04-20 23:57] LABS: ALKALINE PHOSPHATASE 397 U/L (45-117)
[2017-04-20 23:59] LABS: BANDS 15 % (0-6); LYMPHOCYTES 5 % (9-44); MONOCYTES 18 % (0-8); POLYS (SEG NEUTROPHILS) 62 % (16-70)
[2017-04-21] VITALS (7 sets, daily range): BP systolic 76–112; BP diastolic 44–68; PULSE 70–88; RESP 16–18; TEMP 98–100.7; O2SAT 92–100
[2017-04-21 00:10] LABS: TROPONIN I 0.04 NG/ML (0.02-0.05)
--- NOTE | 2017-04-21 00:48 | RADRPT ---
EXAM DATE/TIME: 04/21/2017 00:12 [facility] COMPARISON: CHEST SINGLE AP, April 20, 2017, 23:14. CT PULMONARY ANGIOGRAM, July 16, 2015, 15:57. INDICATIONS : Nausea, vomiting and diarrhea. Congestive heart failure RADIATION DOSE: 7.96 CTDIvol (mGy) ; Combined studies - Thorax/Abdomen/Pelvis MEDICAL HISTORY : Hypertension. Cardiovascular disease ILD, Crohns disease SURGICAL HISTORY : Appendectomy. Hysterectomy.Coronary artery stent. Cholecystectomy, ventral and hiatal hernia repair ENCOUNTER: Initial ACUITY: 1 day PAIN SCALE: 0/10 LOCATION: chest TECHNIQUE: Volumetric scanning of the chest was performed. Using automated exposure control and adjustment of t he mA and/or kV according to patient size, radiation dose was kept as low as reasonably achievable to obtain optimal diagnostic quality images. DICOM format image data is available electronically for r eview and comparison. Follow-up recommendations for detected pulmonary nodules are based at a minimum on nodule size and pa tient risk factors according to Fleischner Society Guidelines. FINDINGS: LUNGS: Mild to moderate bilateral diffuse peripheral reticulonodular lung opacity with basilar predominance. 4 mm nodular density in the right middle lobe on image #20. Patchy peripheral groundglass opacity in the left upper lobe. PLEURAE: Trace left pleural effusion. MEDIASTINUM: Moderate diffuse cardiac enlargement. Coronary artery calcifications. AXILLAE: Within normal limits. No lymphadenopathy. MUSCULOSKELETAL: Within normal limits for patient age. MISCELLANEOUS: Postsurgical findings in the anterior upper abdominal wall with mesh and multiple metallic tacks. Atr ophic left kidney. CONCLUSION: 1. Mild bilateral interstitial pulmonary opacity more prominent than on the comparison study likely r epresenting ulnar edema. 2. Trace left pleural effusion. 3. Patchy lateral left upper lobe groundglass opacity indicating early consolidation or atelectasis. 4. 4 mm nodular density in the right middle lobe not seen on prior study. Hawk Osullivan MD on April 21, 2017 at 0:41 Board Certified Radiologist. This report was verified electronically.
--- NOTE | 2017-04-21 00:55 | RADRPT ---
EXAM DATE/TIME: 04/21/2017 00:12 [facility] COMPARISON: CT ABDOMEN & PELVIS W/O CONTRAST, November 13, 2013, 17:15. INDICATIONS : Nausea, vomitying and diarrhea. ORAL CONTRAST: No oral contrast ingested. RADIATION DOSE: 7.96 CTDIvol (mGy) ; Combined studies - Thorax/Abdomen/Pelvis MEDICAL HISTORY : Hypertension. Crohns disease. Cardiovascular diseaseGERD SURGICAL HISTORY : Hysterectomy. Cholecystectomy.Appendectomy.Ventral and hiatal hernia repair ENCOUNTER: Initial ACUITY: 1 day PAIN SCALE: 5/10 LOCATION: abdomen TECHNIQUE: Volumetric scanning of the abdomen and pelvis was performed. Using automated exposure control and ad justment of the mA and/or kV according to patient size, radiation dose was kept as low as reasonably achievable to obtain optimal diagnostic quality images. DICOM format image data is available electro nically for review and comparison. FINDINGS: LOWER LUNGS: Described on chest CT report. LIVER: Surgical clips of the radha hepatis. Liver within normal limits. SPLEEN: Normal size without lesion. PANCREAS: Within normal limits. KIDNEYS: Atrophic left kidney. Right kidney unremarkable. No evidence of hydronephrosis. ADRENAL GLANDS: Within normal limits. VASCULAR: Diffuse arterial calcification. Aortic diameter within normal limits. BOWEL/MESENTERY: Multiple dilated loops of fluid-filled small bowel seen throughout the abdomen measuring up to 4.8 cm in diameter. Focal small bowel wall thickening is seen in the right lower quadrant with marked lumin al narrowing over an approximately 5 cm segment of distal ileum. Adjacent stranding opacity. There is gas and fluid scattered in the colon. No free air or free fluid. Appendix not identified. ABDOMINAL WALL: Mesh and metallic tacks identified in the upper anterior abdominal wall. RETROPERITONEUM: There is no lymphadenopathy. BLADDER: No wall thickening or mass. REPRODUCTIVE: Within normal limits. INGUINAL: There is no lymphadenopathy or hernia. MUSCULOSKELETAL: Prominent lumbar scoliosis and degenerative findings. CONCLUSION: 1. Abnormality of the distal ileum with wall thickening and luminal narrowing suspicious for strictur e. A diffuse small bowel dilatation proximal to this suggesting at least a partial small bowel obstru ction. There is fluid and gas in the colon. 2. Postsurgical findings upper anterior abdominal wall. 3. Prominent scoliosis and degenerative findings of the lumbar spine. Hawk Osullivan MD on April 21, 2017 at 0:47 Board Certified Radiologist. This report was verified electronically.
--- NOTE | 2017-04-21 01:26 | PD ---
Physical Exam Time Seen by Provider: 01:13 Narrative : Left this patient with me to check the results of the CT scans and make a disposition. Data Data Last Documented VS Vital Signs Date Time Temp Pulse Resp B/P (MAP) Pulse Ox O2 Delivery O2 Flow Rate FiO2 04/20/17 23:57 82 18 108/52 (70) 96 Room Air 04/20/17 22:45 98.9 Orders Orders Complete Blood Count With Diff (04/20/17 22:48) Comprehensive Metabolic Panel (04/20/17 22:48) Lipase (04/20/17 22:48) Lactic Acid (04/20/17 22:48) Prothrombin Time / Inr (Pt) (04/20/17 22:48) Urinalysis - C+S If Indicated (04/20/17 22:48) Iv Access Insert/Monitor (04/20/17 22:48) Ecg Monitoring (04/20/17 22:48) Oximetry (04/20/17 22:48) Ondansetron Inj (Zofran Inj) (04/20/17 23:00) Sodium Chlor 0.9% 1000 Ml Inj (Ns 1000 M (04/20/17 22:48) Sodium Chloride 0.9% Flush (Ns Flush) (04/20/17 23:00) Influenzae A/B Antigen (04/20/17 22:48) Chest, Single Ap (04/20/17 ) B-Type Natriuretic Peptide (04/20/17 23:51) Ckmb (Isoenzyme) Profile (04/20/17 23:25) Troponin I (04/20/17 23:25) Ct Abd/Pel W/O Iv Contrast (04/20/17 23:58) Ct Thorax/ Chest Wo Iv Contras (04/20/17 ) CKMB (04/20/17 23:25) CKMB% (04/20/17 23:25) Labs Laboratory Tests Test 04/20/17 23:25 White Blood Count 9.1 TH/MM3 Red Blood Count 3.64 MIL/MM3 Hemoglobin 11.5 GM/DL Hematocrit 35.8 % Mean Corpuscular Volume 98.3 FL Mean Corpuscular Hemoglobin 31.6 PG Mean Corpuscular Hemoglobin Concent 32.1 % Red Cell Distribution Width 14.1 % Platelet Count 250 TH/MM3 Mean Platelet Volume 8.8 FL Neutrophils (%) (Auto) 76.4 % Lymphocytes (%) (Auto) 4.0 % Monocytes (%) (Auto) 18.4 % Eosinophils (%) (Auto) 0.2 % Basophils (%) (Auto) 1.0 % Neutrophils # (Auto) 6.9 TH/MM3 Lymphocytes # (Auto) 0.4 TH/MM3 Monocytes # (Auto) 1.7 TH/MM3 Eosinophils # (Auto) 0.0 TH/MM3 Basophils # (Auto) 0.1 TH/MM3 CBC Comment AUTO DIFF Differential Total Cells Counted 100 Neutrophils % (Manual) 62 % Band Neutrophils % 15 % Lymphocytes % 5 % Monocytes % 18 % Neutrophils # (Manual) 7.0 TH/MM3 Differential Comment FINAL DIFF MANUAL Platelet Estimate NORMAL Platelet Morphology Comment NORMAL Red Cell Morphology Comment NORMAL Prothrombin Time 10.7 SEC Prothromb Time International Ratio 1.1 RATIO Blood Urea Nitrogen 53 MG/DL Creatinine 2.50 MG/DL Random Glucose 96 MG/DL Total Protein 6.3 GM/DL Albumin 2.6 GM/DL Calcium Level 8.3 MG/DL Alkaline Phosphatase 397 U/L Aspartate Amino Transf (AST/SGOT) 45 U/L Alanine Aminotransferase (ALT/SGPT) 21 U/L Total Bilirubin 0.4 MG/DL Sodium Level 134 MEQ/L Potassium Level 3.7 MEQ/L Chloride Level 104 MEQ/L Carbon Dioxide Level 20.4 MEQ/L Anion Gap 10 MEQ/L Estimat Glomerular Filtration Rate 19 ML/MIN Lactic Acid Level 1.3 mmol/L Total Creatine Kinase 163 U/L Creatine Kinase MB 4.3 NG/ML Troponin I 0.04 NG/ML B-Type Natriuretic Peptide 1161 PG/ML Lipase 43 U/L [facility] Medical Record Reviewed: Yes Supervised Visit with PAPITO: No Interpretation(s) The CT abdomen pelvis shows abnormality of the distal ileum with wall thickening and luminal narrowing suspicious for stricture area a diffuse small bowel dilatation proximal to this suggesting at least a partial small bowel obstruction. Incidentally noted are postsurgical findings and the anterior abdominal wall and prominent scoliosis and degenerative findings of the lumbar spine. The CT thorax/chest without IV contrast shows mild bilateral interstitial pulmonary opacity more prominent than on the comparison study, likely representing pulmonary edema. There is a trace left pleural effusion and patchy left upper lobe groundglass opacity indicating early consolidation or atelectasis. There is a 4 mm nodular density in the right middle lobe not seen on prior study. Differential Diagnosis Small bowel obstruction, Crohn's disease, electrolyte disorder, anemia, pneumonia, congestive heart failure Narrative Course The patient appears to have at least a partial small bowel obstruction. She may also have congestive heart failure as well as pneumonia. The elevated BNP of 1161 strongly suggest congestive heart failure. The patient's initial complaints were nausea, vomiting and diarrhea and she does look to be slightly dehydrated but with congestive heart failure hydration should be done carefully. The patient will be admitted to Dr. Macias. Diagnosis Primary Impression: Small bowel obstruction Additional Impression: Congestive heart failure Admitting Information Admitting Physician Requests: Admit Frederick Vera MD Apr 21, 2017 01:26
[2017-04-21] MEDS ORDERED: SENNOSIDES 8.6 MG TAB PO PRN (01:30)
[2017-04-21] MEDS ORDERED: SODIUM CHLORIDE 0.9% FLUSH 10 ML FLUSH IVF PRN (01:30)
[2017-04-21] MEDS ORDERED: LACTULOSE SYRUP 20 GM/30 ML CUP PO PRN (01:30)
[2017-04-21] MEDS ORDERED: SODIUM CHLORIDE 0.9% FLUSH 10 ML FLUSH IV FLUSH PRN (01:30)
[2017-04-21] MEDS ORDERED: cefTRIAXone INJ 1,000 MG in SODIUM CHLORIDE 0.9% INJ 100 ML IV ONE (01:30)
[2017-04-21] MEDS ORDERED: AZITHROMYCIN INJ 500 MG in SODIUM CHLOR 0.9% 250 ML INJ 250 ML IV ONE (01:30)
[2017-04-21] MEDS ORDERED: MAGNESIUM HYDROXIDE SUSP 30 ML CUP PO PRN (01:30)
[2017-04-21] MEDS ORDERED: BISACODYL 10 MG SUPP RECTAL PRN (01:30)
[2017-04-21] MEDS: SODIUM CHLOR 0.9% 1000 ML INJ 1,000 ML IV SCH (01:47)
[2017-04-21] MEDS ORDERED: LEVOFLOXACIN 750 MG PREMIX INJ 150 ML IV ONE (02:00)
[2017-04-21] MEDS: metroNIDAZOLE 500 MG INJ 100 ML IV SCH ×3 (02:25→17:06)
[2017-04-21] MEDS: MORPHINE SULFATE 2 MG/ML INJ IV PUSH PRN ×2 (06:33→20:48)
[2017-04-21] MEDS: FAMOTIDINE 20 MG/2 ML VIAL IV PUSH SCH ×2 (08:40→20:47)
[2017-04-21] MEDS: DOCUSATE SODIUM 50 MG/SENNA 8.6 MG TAB PO SCH ×2 (08:40→20:48)
--- NOTE | 2017-04-21 08:59 | HHI.HP ---
HPI Service [facility] Primary Care Physician Christopher Vasquez Do, MD Admission Diagnosis Small bowel obstruction, congestive heart failure, pneumonia Diagnoses: (1) Small bowel obstruction Chief Complaint: Abdominal pain with associated nausea, vomiting, diarrhea Travel History International Travel<30 Days: No Contact w/Intl Traveler <30 Da: No Traveled to Known Affected Are: No History of Present Illness Written by Madison Tom, acting as scribe for Dr. Shea on 04/21/17 at 08:50. Ms. Pete is a 67-year-old female patient with a known medical history of esophageal CA, atrial fibrillation, CAD with OK and cardiac stents, HTN, and Crohn's disease who presented to the ED via [facility] with complaints of nausea, vomiting, diarrhea and abdominal pain x 1 day. Patient is legally blind, at bedside who is also somewhat blind, with therapy dog. Patient states that she vomited roughly 5 times with associated diarrhea, did not recognize any blood in stool. Denies any recent fever and chills, chest pain or dysuria. Over the past week she recognized cramping in her abdomen and has had a diminished appetite over the week. Was diagnosed with esophageal cancer in April, last chemotherapy and radiation back in April, oncologist is Dr. Steinberg. She had an esophageal ablation procedure done about 4 months ago and per , patient seems to have been declining since. At the time of assessment patient has present abdominal pain, worse in her left lower quadrant. Last emesis and BM was 2130 last evening. Denies passing any gas. Review of Systems Constitutional: DENIES: Fever, Chills Eyes: DENIES: Blurred vision Respiratory: DENIES: Cough, Sputum production, Shortness of breath Gastrointestinal: COMPLAINS OF: Abdominal pain, Diarrhea, Nausea, Vomiting Except as stated in HPI: all other systems reviewed are Neg Past Family Social History Past Medical History Atrial fibrillation History of cardiac window and ablation CAD with OK history Crohn's disease GERD HTN Past Surgical History Hiatal hernia repair Cholecystectomy PEG tube insertion and removal Cardiac stent placement Left chest port Hysterectomy Left knee replacement Tonsillectomy Left above the knee amputation Reported Medications Active Hydrocodone-Acetaminophen 10-325 mg Tab 1 Tab PO Q6H PRN Reported Omeprazole 20 Mg Tab 20 Mg PO DAILY Lomotil (Diphenoxylate-Atropine) 2.5-0.025 Mg Tab 1 Tab PO Q6H PRN Lidocaine Viscous Liq 2 % Liqd 5 Ml SWISH-SWAL DIRECTED PRN Lialda (Mesalamine) 1.2 Gm Tabdr 1.2 Gm PO BID Take with a meal. Carafate Liq (Sucralfate) 1 Gm/10 Ml Susp 1 Gm PO TID on empty stomach Eliquis (Apixaban) 5 Mg Tab 5 Mg PO BID Metoprolol Tartrate 25 Mg Tab 25 Mg PO BID Simvastatin 40 Mg Tab 40 Mg PO HS Aspirin Children's (Aspirin) 81 Mg Chew 81 Mg CHEW DAILY Gabapentin 600 Mg Tab 600 Mg PO BID Tegretol (Carbamazepine) 200 Mg Tab 200 Mg PO BID Ranitidine (Ranitidine HCl) 150 Mg Tab 150 Mg PO DAILY Pantoprazole (Pantoprazole Sodium) 40 Mg Tab 40 Mg PO BID Allergies: Coded Allergies: Sulfa (Sulfonamide Antibiotics) (Unverified Adverse Reaction, Severe, CRAMPS, 04/20/17) gi upset acetaminophen (Unverified Adverse Reaction, Severe, CONSTIPATION, 04/20/17 ) due to hx of chrons oxycodone (Unverified Adverse Reaction, Severe, CONSTIPATION, 04/20/17) due to hx of chrons Active Ordered Medications Current Medications Medications (Trade) Dose Ordered Sig/Emily Route Start Time Stop Time Status Last Admin (Pepcid Inj) 10 mg Q12HR IV PUSH 04/21/17 09:00 04/21/17 08:40 Metronidazole 100 ml @ 100 mls/hr Q8H IV 04/21/17 02:00 04/21/17 02:25 Sodium Chloride 1,000 ml @ 50 mls/hr Q20H IV 04/21/17 01:21 04/21/17 01:47 (NS Flush) 2 ml UNSCH PRN IV FLUSH 04/21/17 01:30 (NS Flush) 2 ml BID IV FLUSH 04/21/17 09:00 (Zofran Inj) 4 mg Q6H PRN IVP 04/21/17 01:30 (Morphine Inj) 1 mg Q3H PRN IV PUSH 04/21/17 01:30 04/21/17 06:33 (Morphine Inj) 2 mg Q3H PRN IV PUSH 04/21/17 01:30 (Cherelle-Colace) 1 tab BID PO 04/21/17 09:00 04/21/17 08:40 (Milk Of Magnesia Liq) 30 ml Q12H PRN PO 04/21/17 01:30 (Senokot) 17.2 mg Q12H PRN PO 04/21/17 01:30 (Dulcolax Supp) 10 mg DAILY PRN RECTAL 04/21/17 01:30 (Lactulose Liq) 30 ml DAILY PRN PO 04/21/17 01:30 Levofloxacin/ Dextrose 100 ml @ 100 mls/hr Q48H IV 04/23/17 02:00 Family History Maternal medical history significant for stroke. Paternal medical history significant for lymphoma. Social History Patient states she quit smoking 3 months ago, prior to this she smoked 1/2 ppd for many years. Admits to occasional alcohol use. Denies any illicit drug use. Physical Exam Vital Signs Vital Signs Date Time Temp Pulse Resp B/P (MAP) Pulse Ox O2 Delivery O2 Flow Rate FiO2 04/21/17 03:01 84 98 04/21/17 03:00 80 16 97/54 (68) 98 Room Air 04/21/17 02:40 100.7 84 18 76/44 (55) 93 04/21/17 01:26 88 16 98/49 (65) 100 Room Air 04/20/17 23:57 82 18 108/52 (70) 96 Room Air 04/20/17 22:45 96 04/20/17 22:45 98.9 84 18 118/57 (77) 96 Physical Exam GENERAL: This is a well-nourished, well-developed female patient, lying in bed in no apparent distress. SKIN: No rashes, ecchymoses or lesions. Warm and dry. HEAD: Atraumatic. Normocephalic. EYES: Pupils equal round and reactive. Extraocular motions intact. No scleral icterus. No injection or drainage. ENT: Nose without bleeding, purulent drainage or septal hematoma. Throat without erythema, tonsillar hypertrophy or exudate. Uvula midline. Airway patent. NECK: Trachea midline. No JVD. Supple. CARDIOVASCULAR: Regular rate and rhythm without murmurs, gallops, or rubs. RESPIRATORY: Clear to auscultation. Breath sounds equal bilaterally. No wheezes , rales, or rhonchi. GASTROINTESTINAL: Diffuse tenderness to palpation with worse in severity in left lower quadrant. Abdomen soft, nondistended. No guarding. MUSCULOSKELETAL: Extremities without clubbing, cyanosis, or edema. Left BKA amputation. NEUROLOGICAL: Awake and alert. Cranial nerves II through XII intact. Motor and sensory grossly within normal limits. Five out of 5 muscle strength in all muscle groups. Normal speech. Laboratory Laboratory Tests Test 04/20/17 23:25 White Blood Count 9.1 Red Blood Count 3.64 Hemoglobin 11.5 Hematocrit 35.8 Mean Corpuscular Volume 98.3 Mean Corpuscular Hemoglobin 31.6 Mean Corpuscular Hemoglobin Concent 32.1 Red Cell Distribution Width 14.1 Platelet Count 250 Mean Platelet Volume 8.8 Neutrophils (%) (Auto) 76.4 Lymphocytes (%) (Auto) 4.0 Monocytes (%) (Auto) 18.4 Eosinophils (%) (Auto) 0.2 Basophils (%) (Auto) 1.0 Neutrophils # (Auto) 6.9 Lymphocytes # (Auto) 0.4 Monocytes # (Auto) 1.7 Eosinophils # (Auto) 0.0 Basophils # (Auto) 0.1 CBC Comment AUTO DIFF Differential Total Cells Counted 100 Neutrophils % (Manual) 62 Band Neutrophils % 15 Lymphocytes % 5 Monocytes % 18 Neutrophils # (Manual) 7.0 Differential Comment FINAL DIFF MANUAL Platelet Estimate NORMAL Platelet Morphology Comment NORMAL Red Cell Morphology Comment NORMAL Prothrombin Time 10.7 Prothromb Time International Ratio 1.1 Blood Urea Nitrogen 53 Creatinine 2.50 Random Glucose 96 Total Protein 6.3 Albumin 2.6 Calcium Level 8.3 Alkaline Phosphatase 397 Aspartate Amino Transf (AST/SGOT) 45 Alanine Aminotransferase (ALT/SGPT) 21 Total Bilirubin 0.4 Sodium Level 134 Potassium Level 3.7 Chloride Level 104 Carbon Dioxide Level 20.4 Anion Gap 10 Estimat Glomerular Filtration Rate 19 Lactic Acid Level 1.3 Total Creatine Kinase 163 Creatine Kinase MB 4.3 Troponin I 0.04 B-Type Natriuretic Peptide 1161 Lipase 43 Date/Time Source Procedure Growth Status 04/21/17 01:35 Blood Peripheral Aerobic Blood Culture Pending Received 04/21/17 01:35 Blood Peripheral Anaerobic Blood Culture Pending Received 04/20/17 23:04 Nasal Washing Influenza Types A,B Antigen (PERRI) - Final NEGATIVE FOR FLU A AND B ANTIGEN.... Complete Result Diagram: 04/20/17 2325 04/20/17 2325 Imaging Last Impressions Abdomen/Pelvis CT 04/20/17 2358 Signed Impressions: Service Date/Time: Friday, April 21, 2017 00:12 - CONCLUSION: 1. Abnormality of the distal ileum with wall thickening and luminal narrowing suspicious for stricture. A diffuse small bowel dilatation proximal to this suggesting at least a partial small bowel obstruction. There is fluid and gas in the colon. 2. Postsurgical findings upper anterior abdominal wall. 3. Prominent scoliosis and degenerative findings of the lumbar spine. Hawk Osullivan MD Chest X-Ray 04/20/17 0000 Signed Impressions: Service Date/Time: March 23:14 - CONCLUSION: 1. Mild bilateral diffuse interstitial opacity indicating possible mild pulmonary edema. 2. Patchy atelectasis or consolidation in the mid left lung. 3. Chronic cardiac silhouette enlargement. Hawk Osullivan MD Chest CT 04/20/17 0000 Signed Impressions: Service Date/Time: Friday, April 21, 2017 00:12 - CONCLUSION: 1. Mild bilateral interstitial pulmonary opacity more prominent than on the comparison study likely representing ulnar edema. 2. Trace left pleural effusion. 3. Patchy lateral left upper lobe groundglass opacity indicating early consolidation or atelectasis. 4. 4 mm nodular density in the right middle lobe not seen on prior study. Hawk Osullivan MD Septic Shock Reassessment Septic shock perfusion: reassessment completed Caprini VTE Risk Assessment Caprini VTE Risk Assessment: Mod/High Risk (score >= 2) Caprini Risk Assessment Model Point Value = 1 Point Value = 2 Point Value = 3 Point Value = 5 Age 41-60 Minor surgery BMI > 25 kg/m2 Swollen legs Varicose veins or History of unexplained or recurrent spontaneous Oral contraceptives or hormone replacement Sepsis (< 1 month) Serious lung disease, including pneumonia (< 1 month) Abnormal pulmonary function Acute myocardial infarction Congestive heart failure (< 1 month) History of inflammatory bowel disease Medical patient at bed rest Age 61-74 Arthroscopic surgery Major open surgery (> 45 min) Laparoscopic surgery (> 45 min) Malignancy Confined to bed (> 72 hours) Immobilizing plaster cast Central venous access Age >= 75 History of VTE Family history of VTE Factor V Leiden Prothrombin [id number] Lupus anticoagulant Anticardiolipin antibodies Elevated serum homocysteine Heparin-induced thrombocytopenia Other congenital or acquired thrombophilia Stroke (< 1 month) Elective arthroplasty Hip, pelvis, or leg fracture Acute spinal cord injury (< 1 month) Prophylaxis Regimen Total Risk Factor Score Risk Level Prophylaxis Regimen 0-1 Low Early ambulation 2 Moderate Order ONE of the following: *Sequential Compression Device (SCD) *Heparin 5000 units SQ BID 3-4 Higher Order ONE of the following medications: *Heparin 5000 units SQ TID *Enoxaparin/Lovenox 40 mg SQ daily (WT < 150 kg, CrCl > 30 mL/min) *Enoxaparin/Lovenox 30 mg SQ daily (WT < 150 kg, CrCl > 10-29 mL/min) *Enoxaparin/Lovenox 30 mg SQ BID (WT < 150 kg, CrCl > 30 mL/min) AND/OR *Sequential Compression Device (SCD) 5 or more Highest Order ONE of the following medications: *Heparin 5000 units SQ TID (Preferred with Epidurals) *Enoxaparin/Lovenox 40 mg SQ daily (WT < 150 kg, CrCl > 30 mL/min) *Enoxaparin/Lovenox 30 mg SQ daily (WT < 150 kg, CrCl > 10-29 mL/min) *Enoxaparin/Lovenox 30 mg SQ BID (WT < 150 kg, CrCl > 30 mL/min) AND *Sequential Compression Device (SCD) Assessment and Plan Problem List: (1) Small bowel obstruction ICD Code: K56.69 - Small bowel obstruction Status: Acute (2) Pneumonia ICD Code: J18.9 - Pneumonia, unspecified organism (3) Acute on chronic systolic (congestive) heart failure ICD Code: I50.23 - Acute on chronic systolic (congestive) heart failure Assessment and Plan Ms. Pete is a 67-year-old female patient with a known medical history of esophageal CA, atrial fibrillation, CAD with OK and cardiac stents, HTN, and Crohn's disease who presented to the ED with complaints of nausea, vomiting, diarrhea and abdominal pain. Partial small bowel obstruction History of esophageal cancer Abdominal/Pelvis CT reviewed showing abnormality of the distal ileum with wall thickening and luminal narrowing suspicious for stricture. A diffuse small bowel dilatation proximal to this suggesting at least a partial small bowel obstruction. There is fluid and gas in the colon. General surgery has been consulted for SBO, appreciate further input and recommendations. GI has been consulted and seen patient, continued IV ABX, hold off on NGT for now, only if vomiting. Placed on Levaquin and Flagyl IV. Control pain, IV Morphine available PRN per pain scale. GI prophylaxis: Pepcid Monitor for constipation, Cherelle-Colace available scheduled. Other agents available PRN. Ensure hydration, continue IVF. NPO for now to rest bowel. Community-acquired pneumonia with consolidation mid left lung. CXR reviewed showing mild bilateral diffuse interstitial opacity indicating possible mild pulmonary edema. Patchy atelectasis or consolidation in the mid left lung. Chronic cardiac silhouette enlargement. CBC reviewed showing WBC 9.1, hemoglobin 11.5, hematocrit 35.8. TMAX 100.7 overnight. WBC WNL. Blood cultures ordered and pending. Follow. Influenza negative. Lactic acid 1.3. Will continue IV steroids as ordered. Levaquin IV continued. BP is labile, patient is in pain and also in CHF exacerbation. Will continue slow IVF to hydrate slowly, careful to watch for overload as well as monitor BP. Will place hold parameters on BP medications. Will check labs in am, follow. Acute on chronic CHF in exacerbation CXR reviewed showing mild bilateral diffuse interstitial opacity indicating possible mild pulmonary edema. Chronic cardiac silhouette enlargement. BNP is elevated 1161 Continue scheduled IV Lasix BID and potassium supplementation. Strict intake and output. Supportive care. Supplemental O2 to keep sats >92% as needed. Acute on chronic CKD suspect secondary to dehydration to above CMP reviewed showing creatinine 2.5 which is slightly worse than her baseline of 2, BUN 53, GFR 19, bicarbonate 20.4, otherwise essentially unremarkable. DVT Prophylaxis: SCDs. This note was transcribed by JONAH Toney. I, Dr. Luda Shea personally performed the history, physical exam, and medical decision making; and confirmed the accuracy of the information in the transcribed note. Authenticated by Dr. Luda Shea on 04/21/17 at 08:50. Physician Certification 2 Midnight Certification Type: Admission for Inpatient Services Order for Inpatient Services The services are ordered in accordance with Medicare regulations or non- Medicare payer requirements, as applicable. In the case of services not specified as inpatient-only, they are appropriately provided as inpatient services in accordance with the 2-midnight benchmark. Estimated LOS (days): 3 days is the estimated time the patient will need to remain in the hospital, assuming treatment plan goals are met and no additional complications. Post-Hospital Plan: Not yet determined Madison Tom Apr 21, 2017 08:59 Luda Shea MD Apr 21, 2017 09:02
[2017-04-21] MEDS: SODIUM CHLORIDE 0.9% FLUSH 10 ML FLUSH IV FLUSH SCH ×2 (09:00→20:48)
--- NOTE | 2017-04-21 09:35 | PD.CONS ---
HPI History of Present Illness This is a 67 year old F who is known to our service. She has GI history significant for esophageal cancer S/P chemo, radiation and an esophageal ablation that was done in December of this year. Also has history of Crohns disease, was previously on Remicade but it was discontinued when she began chemotherapy for her cancer. Currently on Lialda for Crohns. Oncologist is Dr. Steinberg. GI was consulted due to patients complaints of nausea, vomiting, diarrhea, and abdominal pain and CT findings consistent with small bowel obstruction. CT abdomen and pelvis W/O IV contrast (04/21) --> Abnormality of the distal ileum with wall thickening and luminal narrowing suspicious for stricture. A diffuse small bowel dilation proximal to this suggesting at least a partial small bowel obstruction. there is fluid and gas in the colon. Post surgical finding upper anterior abdominal wall. Prominent scoliosis and degenerative findings of the lumbar spine. Pt reports symptoms began on Monday when she was unable to eat anything. She began vomiting and having diarrhea on Monday night. She reports lower abdominal pain began yesterday. She has not vomited or had diarrhea since last night, currently reports no nausea. Abdominal pain is still present, but she reports less severe. Last PO intake was an Eggo waffle yesterday. Abdominal surgeries include cholecystectomy, hysterectomy, and hiatal hernia repair. She denies ETOH. Reports current smoker, 6-8 cigarettes a day. Denies illicit drug use. (Destiney Aguero) PFSH Past Medical History Atrial fibrillation History of cardiac window and ablation CAD with WI history Crohn's disease GERD HTN Esophageal cancer S/P chemo, radiation and ablation Blind Past Surgical History Hiatal hernia repair Cholecystectomy PEG tube insertion and removal Cardiac stent placement Left chest port Hysterectomy Left knee replacement Tonsillectomy Left above the knee amputation (Destiney Aguero) Coded Allergies: Sulfa (Sulfonamide Antibiotics) (Unverified Adverse Reaction, Severe, CRAMPS, 04/20/17) gi upset acetaminophen (Unverified Adverse Reaction, Severe, CONSTIPATION, 04/20/17 ) due to hx of chrons oxycodone (Unverified Adverse Reaction, Severe, CONSTIPATION, 04/20/17) due to hx of chrons Social History Patient states she quit smoking last fall in 2015, prior to this she smoked Admits to occasional alcohol use. Denies any illicit drug use. (Destiney Aguero) Review of Systems Gastrointestinal: COMPLAINS OF: Abdominal pain, Diarrhea, Nausea, Vomiting, DENIES: Black stools, Bloody stools, Constipation, Difficulty Swallowing, Anorexia, Odynophagia, Swelling of Abdomen, Heartburn, Hematemesis (Destiney Aguero) GI Exam Vitals I&O Vital Signs Date Time Temp Pulse Resp B/P (MAP) Pulse Ox O2 Delivery O2 Flow Rate FiO2 04/21/17 03:01 84 98 04/21/17 03:00 80 16 97/54 (68) 98 Room Air 04/21/17 02:40 100.7 84 18 76/44 (55) 93 04/21/17 01:26 88 16 98/49 (65) 100 Room Air 04/20/17 23:57 82 18 108/52 (70) 96 Room Air 04/20/17 22:45 96 04/20/17 22:45 98.9 84 18 118/57 (77) 96 I/O 04/20/17 04/20/17 04/20/17 04/21/17 04/21/17 04/21/17 06:59 14:59 22:59 06:59 14:59 22:59 Intake Total 1600 ml Balance 1600 ml IV Total 1600 ml # Voids 1 Imaging Last Impressions Abdomen/Pelvis CT 04/20/17 8499 Signed Impressions: Service Date/Time: Friday, April 21, 2017 00:12 - CONCLUSION: 1. Abnormality of the distal ileum with wall thickening and luminal narrowing suspicious for stricture. A diffuse small bowel dilatation proximal to this suggesting at least a partial small bowel obstruction. There is fluid and gas in the colon. 2. Postsurgical findings upper anterior abdominal wall. 3. Prominent scoliosis and degenerative findings of the lumbar spine. Hawk Osullivan MD Chest X-Ray 04/20/17 0000 Signed Impressions: Service Date/Time: March 23:14 - CONCLUSION: 1. Mild bilateral diffuse interstitial opacity indicating possible mild pulmonary edema. 2. Patchy atelectasis or consolidation in the mid left lung. 3. Chronic cardiac silhouette enlargement. Hawk Osullivan MD Chest CT 04/20/17 0000 Signed Impressions: Service Date/Time: Friday, April 21, 2017 00:12 - CONCLUSION: 1. Mild bilateral interstitial pulmonary opacity more prominent than on the comparison study likely representing ulnar edema. 2. Trace left pleural effusion. 3. Patchy lateral left upper lobe groundglass opacity indicating early consolidation or atelectasis. 4. 4 mm nodular density in the right middle lobe not seen on prior study. Hawk Osullivan MD Laboratory Test 04/20/17 23:25 White Blood Count 9.1 TH/MM3 Red Blood Count 3.64 MIL/MM3 Hemoglobin 11.5 GM/DL Hematocrit 35.8 % Mean Corpuscular Volume 98.3 FL Mean Corpuscular Hemoglobin 31.6 PG Mean Corpuscular Hemoglobin Concent 32.1 % Red Cell Distribution Width 14.1 % Platelet Count 250 TH/MM3 Mean Platelet Volume 8.8 FL Neutrophils (%) (Auto) 76.4 % Lymphocytes (%) (Auto) 4.0 % Monocytes (%) (Auto) 18.4 % Eosinophils (%) (Auto) 0.2 % Basophils (%) (Auto) 1.0 % Neutrophils # (Auto) 6.9 TH/MM3 Lymphocytes # (Auto) 0.4 TH/MM3 Monocytes # (Auto) 1.7 TH/MM3 Eosinophils # (Auto) 0.0 TH/MM3 Basophils # (Auto) 0.1 TH/MM3 CBC Comment AUTO DIFF Differential Total Cells Counted 100 Neutrophils % (Manual) 62 % Band Neutrophils % 15 % Lymphocytes % 5 % Monocytes % 18 % Neutrophils # (Manual) 7.0 TH/MM3 Differential Comment FINAL DIFF MANUAL Platelet Estimate NORMAL Platelet Morphology Comment NORMAL Red Cell Morphology Comment NORMAL Prothrombin Time 10.7 SEC Prothromb Time International Ratio 1.1 RATIO Blood Urea Nitrogen 53 MG/DL Creatinine 2.50 MG/DL Random Glucose 96 MG/DL Total Protein 6.3 GM/DL Albumin 2.6 GM/DL Calcium Level 8.3 MG/DL Alkaline Phosphatase 397 U/L Aspartate Amino Transf (AST/SGOT) 45 U/L Alanine Aminotransferase (ALT/SGPT) 21 U/L Total Bilirubin 0.4 MG/DL Sodium Level 134 MEQ/L Potassium Level 3.7 MEQ/L Chloride Level 104 MEQ/L Carbon Dioxide Level 20.4 MEQ/L Anion Gap 10 MEQ/L Estimat Glomerular Filtration Rate 19 ML/MIN Lactic Acid Level 1.3 mmol/L Total Creatine Kinase 163 U/L Creatine Kinase MB 4.3 NG/ML Troponin I 0.04 NG/ML B-Type Natriuretic Peptide 1161 PG/ML Lipase 43 U/L Date/Time Source Procedure Growth Status 04/21/17 01:35 Blood Peripheral Aerobic Blood Culture Pending Received 04/21/17 01:35 Blood Peripheral Anaerobic Blood Culture Pending Received 04/20/17 23:04 Nasal Washing Influenza Types A,B Antigen (PERRI) - Final NEGATIVE FOR FLU A AND B ANTIGEN.... Complete Physical Examination HEENT: Normocephalic; atraumatic CHEST: Even/unlabored. CARDIAC: Irregular rate. ABDOMEN: Soft, mildly distended, diffuse TTP worse in RLQ and LUQ, bowel sounds active x 4. EXTREMITIES: No clubbing, cyanosis, or edema. SKIN: Normal; no rash; no jaundice. BACK SIZER: No focal deficits; alert and oriented times three. (Destiney Aguero) Assessment and Plan Plan Assessment - Partial small bowel obstruction- History of Crohns, previously on Remicade, was discontinued when she began chemotherapy for esophageal cancer, currently on Lialda. Reports of vomiting and diarrhea that began on Monday night and abdominal pain that began last night. GS has been consulted, awaiting recommendations. Will hold off on NGT at this point because pt has not vomited since last night and she denies any nausea at this time. Will add Solumedrol. On Levaquin and Flagyl. - History of esophageal cancer- S/P chemo and radiation and ablation in December. CT abdomen and pelvis W/O IV contrast (04/21) --> Abnormality of the distal ileum with wall thickening and luminal narrowing suspicious for stricture. A diffuse small bowel dilation proximal to this suggesting at least a partial small bowel obstruction. There is fluid and gas in the colon. Postsurgical findings upper anterior abdominal wall. Prominent scoliosis and degenerative finding of the lumbar spine. Plan: - Methylprednisolone 40mg IV BID - Continue Flagyl - Continue Levaquin - Will hold off on NGT, would recommend if intractable vomiting - GS consulted - Monitor labs - Supportive care - Further recommendations to follow Pt has been seen and examined by myself and Dr. Persaud and this note is written on his behalf (Destiney Aguero) Physician Comments Seen and examined with JONAH, known to me with multiple co morbidities. Long standing history of Crohns disease was on humira but stopped due to diagnosis of esophageal cancer. Appears to have relapse of disease with SBO. NPO except ice chips. Iv steroids. Scopes next week depending upon clinical course. KUB in am. Thank you (Ronda Persaud MD) Destiney Aguero Apr 21, 2017 09:35 Ronda Persaud MD Apr 21, 2017 14:02
[2017-04-21] MEDS ORDERED: SODIUM CHLOR 0.9% 250 ML INJ 250 ML IV ONE (10:45)
--- NOTE | 2017-04-21 11:22 | PD.CONS ---
cc: Marc Swartz MD [facility] Service General Surgery Consult Requested By Dr. Peres Reason for Consult Small bowel obstruction Primary Care Physician Christopher Vasquez Do, MD History of Present Illness This is a 67-year-old female with a past medical history of CAD with stent placement, Crohn's disease, esophageal cancer status post chemotherapy/radiation , atrial fibrillation on Eliquis, hypertension and seizures. The patient developed abdominal pain was started on Monday with associated nausea, vomiting and diarrhea. The patient denies any sick contacts. The patient denies any recent travel. The patient follows Dr. Persaud for her Crohn's disease. A CT abdomen and pelvis was obtained which shows an abnormality in the distal ileum with wall thickening and luminal narrowing suspicious for stricture; diffuse small bowel dilatation proximal and a questionable partial small bowel obstruction. The patient reports that she has known about these findings for about 14 years and no surgical intervention has been done. The patient has not had a problem over 14 years. The patient's bowel function is irregular going from soft formed stool to diarrhea likely due to her Crohn's disease. A General Surgery consultation has been requested for evaluation of a small bowel section. Review of Systems Constitutional: COMPLAINS OF: Change in appetite, DENIES: Chills Endocrine: DENIES: Polydipsia, Polyuria, Polyphagia Eyes: DENIES: Diplopia Respiratory: DENIES: Cough Cardiovascular: DENIES: Palpitations Gastrointestinal: COMPLAINS OF: Abdominal pain, Diarrhea, Nausea, Vomiting Genitourinary: DENIES: Urinary frequency Musculoskeletal: DENIES: Joint pain Integumentary: DENIES: Abnormal pigmentation Hematologic/lymphatic: DENIES: Bruising Immunologic/allergic: DENIES: Eczema Neurologic: DENIES: Headache, Localized weakness Psychiatric: DENIES: Mood changes, Depression Past Family Social History Past Medical History Coronary artery disease with stent placement Crohn's disease Esophageal cancer Atrial fibrillation Hypertension Seizures Past Surgical History Feeding tube placement and removal Hiatal hernia repair 2011 Laparoscopic cholecystectomy Cardiac stents [id number] placement Left knee replacement 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 Tonsillectomy Reported Medications Eliquis (last taken Wednesday PM) Simvastatin Metoprolol Aspirin [place] Tegretol Gabapentin Lomotil [place] Omeprazole Protonix Lialda Allergies: Coded Allergies: Sulfa (Sulfonamide Antibiotics) (Unverified Adverse Reaction, Severe, CRAMPS, 04/20/17) gi upset acetaminophen (Unverified Adverse Reaction, Severe, CONSTIPATION, 04/20/17 ) due to hx of chrons oxycodone (Unverified Adverse Reaction, Severe, CONSTIPATION, 04/20/17) due to hx of chrons Active Ordered Medications Current Medications Medications (Trade) Dose Ordered Sig/Emily Route Start Time Stop Time Status Last Admin (Pepcid Inj) 10 mg Q12HR IV PUSH 04/21/17 09:00 04/21/17 08:40 Metronidazole 100 ml @ 100 mls/hr Q8H IV 04/21/17 02:00 04/21/17 10:00 Sodium Chloride 1,000 ml @ 50 mls/hr Q20H IV 04/21/17 01:21 04/21/17 01:47 (NS Flush) 2 ml UNSCH PRN IV FLUSH 04/21/17 01:30 (NS Flush) 2 ml BID IV FLUSH 04/21/17 09:00 (Zofran Inj) 4 mg Q6H PRN IVP 04/21/17 01:30 (Morphine Inj) 1 mg Q3H PRN IV PUSH 04/21/17 01:30 04/21/17 06:33 (Morphine Inj) 2 mg Q3H PRN IV PUSH 04/21/17 01:30 (Cherelle-Colace) 1 tab BID PO 04/21/17 09:00 04/21/17 08:40 (Milk Of Magnesia Liq) 30 ml Q12H PRN PO 04/21/17 01:30 (Senokot) 17.2 mg Q12H PRN PO 04/21/17 01:30 (Dulcolax Supp) 10 mg DAILY PRN RECTAL 04/21/17 01:30 (Lactulose Liq) 30 ml DAILY PRN PO 04/21/17 01:30 Levofloxacin/ Dextrose 100 ml @ 100 mls/hr Q48H IV 04/23/17 02:00 (Lasix Inj) 40 mg BID@09,18 IV PUSH 04/21/17 18:00 (KCl) 10 meq BID PO 04/21/17 10:00 (SoluMEDROL INJ) 40 mg Q12HR IV PUSH 04/21/17 21:00 Sodium Chloride 250 ml @ 250 mls/hr BOLUS ONCE IV 04/21/17 10:45 04/21/17 11:44 Family History Noncontributory Social History Positive tobacco use--- 8 cigarettes daily Denies EtOH use Denies illicit drug use Lives at home with who has a service dog. Physical Exam Vital Signs Vital Signs Date Time Temp Pulse Resp B/P (MAP) Pulse Ox O2 Delivery O2 Flow Rate FiO2 04/21/17 09:45 80/47 (58) 04/21/17 08:00 99.7 84 18 79/49 (59) 92 04/21/17 03:01 84 98 04/21/17 03:00 80 16 97/54 (68) 98 Room Air 04/21/17 02:40 100.7 84 18 76/44 (55) 93 04/21/17 01:26 88 16 98/49 (65) 100 Room Air 04/20/17 23:57 82 18 108/52 (70) 96 Room Air 04/20/17 22:45 96 04/20/17 22:45 98.9 84 18 118/57 (77) 96 Physical Exam GENERAL: 67-year-old chronically ill-appearing female resting in bed in no acute distress. SKIN: Warm and dry. HEAD: Atraumatic. Normocephalic. EYES: Pupils equal and round. No scleral icterus. No injection or drainage. ENT: No nasal bleeding or discharge. Mucous membranes pink and moist. NECK: Trachea midline. CARDIOVASCULAR: Regular rate and rhythm. RESPIRATORY: No accessory muscle use. Clear to auscultation. Breath sounds equal bilaterally. GASTROINTESTINAL: Abdomen soft, minimally distended; palpation in left upper and left lower quadrants. Well-healed laparoscopic sites. Well-healed site where prior feeding tube was placed. No signs of hernias. MUSCULOSKELETAL: Extremities without clubbing, cyanosis, or edema. LEFT AKA. NEUROLOGICAL: Awake and alert. No obvious cranial nerve deficits. Motor grossly within normal limits. Five out of 5 muscle strength in the arms and legs. Normal speech. PSYCHIATRIC: Appropriate mood and affect; insight and judgment normal. Laboratory Laboratory Tests Test 04/20/17 23:25 White Blood Count 9.1 Red Blood Count 3.64 Hemoglobin 11.5 Hematocrit 35.8 Mean Corpuscular Volume 98.3 Mean Corpuscular Hemoglobin 31.6 Mean Corpuscular Hemoglobin Concent 32.1 Red Cell Distribution Width 14.1 Platelet Count 250 Mean Platelet Volume 8.8 Neutrophils (%) (Auto) 76.4 Lymphocytes (%) (Auto) 4.0 Monocytes (%) (Auto) 18.4 Eosinophils (%) (Auto) 0.2 Basophils (%) (Auto) 1.0 Neutrophils # (Auto) 6.9 Lymphocytes # (Auto) 0.4 Monocytes # (Auto) 1.7 Eosinophils # (Auto) 0.0 Basophils # (Auto) 0.1 CBC Comment AUTO DIFF Differential Total Cells Counted 100 Neutrophils % (Manual) 62 Band Neutrophils % 15 Lymphocytes % 5 Monocytes % 18 Neutrophils # (Manual) 7.0 Differential Comment FINAL DIFF MANUAL Platelet Estimate NORMAL Platelet Morphology Comment NORMAL Red Cell Morphology Comment NORMAL Prothrombin Time 10.7 Prothromb Time International Ratio 1.1 Blood Urea Nitrogen 53 Creatinine 2.50 Random Glucose 96 Total Protein 6.3 Albumin 2.6 Calcium Level 8.3 Alkaline Phosphatase 397 Aspartate Amino Transf (AST/SGOT) 45 Alanine Aminotransferase (ALT/SGPT) 21 Total Bilirubin 0.4 Sodium Level 134 Potassium Level 3.7 Chloride Level 104 Carbon Dioxide Level 20.4 Anion Gap 10 Estimat Glomerular Filtration Rate 19 Lactic Acid Level 1.3 Total Creatine Kinase 163 Creatine Kinase MB 4.3 Troponin I 0.04 B-Type Natriuretic Peptide 1161 Lipase 43 Date/Time Source Procedure Growth Status 04/21/17 01:35 Blood Peripheral Aerobic Blood Culture Pending Received 04/21/17 01:35 Blood Peripheral Anaerobic Blood Culture Pending Received 04/20/17 23:04 Nasal Washing Influenza Types A,B Antigen (PERRI) - Final NEGATIVE FOR FLU A AND B ANTIGEN.... Complete Result Diagram: 04/20/175 04/20/17 232 Imaging Last 48 hours Impressions Abdomen/Pelvis CT 04/20/17 0026 Signed Impressions: Service Date/Time: Friday, April 21, 2017 00:12 - CONCLUSION: 1. Abnormality of the distal ileum with wall thickening and luminal narrowing suspicious for stricture. A diffuse small bowel dilatation proximal to this suggesting at least a partial small bowel obstruction. There is fluid and gas in the colon. 2. Postsurgical findings upper anterior abdominal wall. 3. Prominent scoliosis and degenerative findings of the lumbar spine. Hawk Osullivan MD Chest X-Ray 04/20/17 0000 Signed Impressions: Service Date/Time: March 23:14 - CONCLUSION: 1. Mild bilateral diffuse interstitial opacity indicating possible mild pulmonary edema. 2. Patchy atelectasis or consolidation in the mid left lung. 3. Chronic cardiac silhouette enlargement. Hawk Osullivan MD Chest CT 04/20/17 0000 Signed Impressions: Service Date/Time: Friday, April 21, 2017 00:12 - CONCLUSION: 1. Mild bilateral interstitial pulmonary opacity more prominent than on the comparison study likely representing ulnar edema. 2. Trace left pleural effusion. 3. Patchy lateral left upper lobe groundglass opacity indicating early consolidation or atelectasis. 4. 4 mm nodular density in the right middle lobe not seen on prior study. Hawk Osulilvan MD Assessment and Plan Assessment and Plan 67 year old female with Crohn's disease; known stricture in distal ileum; abdominal pain/nausea/vomiting -Recommend GI consult; patient known to Dr. Persaud -NPO -Diet per GI -Okay from a surgery standpoint for steroids -May need workup for nodule mass visualized on CT Chest -If requires surgical intervention will plan to move to [facility]; for an now will monitor in [place] -Thank you for this consult; We will continue to follow Attending Note - Dr. Swartz Patient seen and examined Abdomen nondistended, moderately tender to deep palpation RLQ; no masses appreciated. CT reviewed and findings discussed with Dr. Persaud; started on solumedrol as acute treatment. As she is passing flatus and has no further emesis and is nondistended, will attempt nonoperative management. Biologics are suboptimal due to previous history of malignancy; if she fails advancement of diet and/or pain increases or obstruction persists, she may need surgery. She is aware of this and fact that surgery will be high risk due to her other comorbidities. The exam, history, and the medical decision-making described in the above note were completed with the assistance of the mid-level provider. I reviewed and agree with the findings presented. I attest that I had a [id number] encounter with the patient on the same day, and personally performed and documented my assessment and findings in the medical record. Discussed Condition With Dr. Maxime Watkins. and Kimberly Bryan Apr 21, 2017 11:22 Marc Swartz MD Apr 21, 2017 17:54
[2017-04-21] MEDS: POTASSIUM CHLORIDE 10 MEQ CAP PO SCH ×2 (13:00→20:47)
[2017-04-21] MEDS: FUROSEMIDE 40 MG/4 ML VIAL IV PUSH SCH (17:05)
[2017-04-21] MEDS: methylPREDNISolone SOD SUCC 40 MG/1 ML VIAL IV PUSH SCH (20:47)
[2017-04-22 00:20] VITALS: BP 110/53; PULSE 88; RESP 16; TEMP 97.6; O2SAT 98
[2017-04-22] MEDS: metroNIDAZOLE 500 MG INJ 100 ML IV SCH ×3 (02:19→17:28)
[2017-04-22] MEDS: SODIUM CHLOR 0.9% 1000 ML INJ 1,000 ML IV SCH ×2 (02:20→17:21)
[2017-04-22] MEDS: MORPHINE SULFATE 2 MG/ML INJ IV PUSH PRN ×5 (04:18→20:39)
[2017-04-22 05:10] VITALS: BP 136/69; PULSE 89
--- NOTE | 2017-04-22 05:41 | RADRPT ---
EXAM DATE/TIME: 04/22/2017 05:26 [place] COMPARISON: CT ABDOMEN & PELVIS W/O CONTRAST, April 21, 2017, 0:12. INDICATIONS : Abdominal distention. MEDICAL HISTORY : Hypertension. Crohns disease. Cardiovascular disease, GERD, Carcinoma, esophageal. Afib SURGICAL HISTORY : Coronary artery stent. Hysterectomy. Cholecystectomy.Appendectomy.Ventral and hiatal hernia repair ENCOUNTER: Initial ACUITY: 3 days PAIN SCORE: 3/10 LOCATION: Bilateral abdomen FINDINGS: Small bowel distention has decreased, now mild. No colonic or gastric distention. No evidence of free air. CONCLUSION: Decreasing small bowel distention, currently mild. Joseph Luo MD on April 22, 2017 at 5:39 Board Certified Radiologist. This report was verified electronically.
[2017-04-22 08:00] VITALS: BP 146/65; PULSE 77; RESP 18; TEMP 98; O2SAT 97
[2017-04-22 08:40] LABS: AUTOMATED NEUTROPHIL # 5.8 TH/MM3 (1.8-7.7); BASOPHIL % 0.2 % (0.0-2.0); EOSINOPHIL % 0.2 % (0.0-4.0); HEMATOCRIT 31.7 % (35.0-46.0); HEMOGLOBIN 9.9 GM/DL (11.6-15.3); LYMPH % 7.4 % (9.0-44.0); LYMPHOCYTE # 0.5 TH/MM3 (1.0-4.8); MEAN CELL VOLUME 98.2 FL (80.0-100.0); MEAN CORPUSCULAR HEMOGLOBIN 30.5 PG (27.0-34.0); MEAN CORPUSCULAR HGB CONC 31.1 % (32.0-36.0); MEAN PLATELET VOLUME 9.5 FL (7.0-11.0); MONO % 9.5 % (0.0-8.0); MONOCYTE # 0.7 TH/MM3 (0-0.9); NEUT % 82.7 % (16.0-70.0); PLATELET COUNT 205 TH/MM3 (150-450); RED BLOOD COUNT 3.22 MIL/MM3 (4.00-5.30); RED CELL DISTRIBUTION WIDTH 13.7 % (11.6-17.2)
[2017-04-22 08:50] LABS: CHLORIDE 111 MEQ/L (98-107); SODIUM (NA) 139 MEQ/L (136-145)
[2017-04-22 08:55] LABS: CALCIUM 7.6 MG/DL (8.5-10.1)
[2017-04-22 08:56] LABS: ALBUMIN 2.1 GM/DL (3.4-5.0); BICARBONATE 13.6 MEQ/L (21.0-32.0); BLOOD UREA NITROGEN 43 MG/DL (7-18); GLUCOSE,RANDOM 56 MG/DL (74-106)
--- NOTE | 2017-04-22 08:56 | HHI.PR ---
Subjective Remarks Still with nausea, however she is not vomiting at this time. No fever or chills. Some abdominal cramps improved since yesterday. Had some liquid stool. No blood in it. Did not pass gas. Otherwise no chest pain or shortness of breath. Denies lightheadedness or palpitations. 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 Objective Vitals Vital Signs Date Time Temp Pulse Resp B/P (MAP) Pulse Ox O2 Delivery O2 Flow Rate FiO2 04/22/17 05:10 89 136/69 (91) 04/22/17 00:20 97.6 88 16 110/53 (72) 98 04/21/17 21:39 98.0 70 16 112/68 (83) 97 04/21/17 12:00 98.6 86 18 103/55 (71) 93 04/21/17 09:45 80/47 (58) I/O 04/21/17 04/21/17 04/21/17 04/22/17 04/22/17 04/22/17 07:00 15:00 23:00 07:00 15:00 23:00 Intake Total 1600 ml 350 ml 100 ml 525 ml Output Total 850 ml Balance 1600 ml 350 ml 100 ml -325 ml Intake Oral 0 ml IV Total 1600 ml 350 ml 100 ml 525 ml Output Urine Total 850 ml # Voids 1 2 1 # Bowel Movements 0 3 Result Diagram: 04/22/17 0735 04/22/17 0735 Imaging Last Impressions Abdomen X-Ray 04/22/17 0600 Signed Impressions: Service Date/Time: Saturday, April 22, 2017 05:26 - CONCLUSION: Decreasing small bowel distention, currently mild. Joseph Luo MD Abdomen/Pelvis CT 04/20/17 0934 Signed Impressions: Service Date/Time: Friday, April 21, 2017 00:12 - CONCLUSION: 1. Abnormality of the distal ileum with wall thickening and luminal narrowing suspicious for stricture. A diffuse small bowel dilatation proximal to this suggesting at least a partial small bowel obstruction. There is fluid and gas in the colon. 2. Postsurgical findings upper anterior abdominal wall. 3. Prominent scoliosis and degenerative findings of the lumbar spine. Hawk Osullivan MD Chest X-Ray 04/20/17 0000 Signed Impressions: Service Date/Time: March 23:14 - CONCLUSION: 1. Mild bilateral diffuse interstitial opacity indicating possible mild pulmonary edema. 2. Patchy atelectasis or consolidation in the mid left lung. 3. Chronic cardiac silhouette enlargement. Hawk Osullivan MD Chest CT 04/20/17 0000 Signed Impressions: Service Date/Time: Friday, April 21, 2017 00:12 - CONCLUSION: 1. Mild bilateral interstitial pulmonary opacity more prominent than on the comparison study likely representing ulnar edema. 2. Trace left pleural effusion. 3. Patchy lateral left upper lobe groundglass opacity indicating early consolidation or atelectasis. 4. 4 mm nodular density in the right middle lobe not seen on prior study. Hawk Osullivan MD Objective Remarks GENERAL: This is a well-nourished, well-developed female patient, lying in bed in no apparent distress. CARDIOVASCULAR: Regular rate and rhythm without murmurs, gallops, or rubs. RESPIRATORY: Clear to auscultation. Breath sounds equal bilaterally. No wheezes , rales, or rhonchi. GASTROINTESTINAL: Diffuse tenderness to palpation with worse in severity in left lower quadrant. Abdomen soft, nondistended. No guarding. MUSCULOSKELETAL: Extremities without clubbing, cyanosis, or edema. Left BKA amputation. NEUROLOGICAL: Awake and alert. Cranial nerves II through XII intact. Motor and sensory grossly within normal limits. Five out of 5 muscle strength in all muscle groups. Normal speech. A/P Problem List: (1) Small bowel obstruction ICD Code: K56.69 - Small bowel obstruction Status: Acute Assessment and Plan Ms. Pete is a 67-year-old female patient with a known medical history of esophageal CA, atrial fibrillation, CAD with TN and cardiac stents, HTN, and Crohn's disease who presented to the ED with complaints of nausea, vomiting, diarrhea and abdominal pain. Partial small bowel obstruction History of esophageal cancer Abdominal/Pelvis CT reviewed showing abnormality of the distal ileum with wall thickening and luminal narrowing suspicious for stricture. A diffuse small bowel dilatation proximal to this suggesting at least a partial small bowel obstruction. There is fluid and gas in the colon. General surgery has been consulted for SBO, appreciate further input and recommendations. Conservative management t this time. GI has been consulted and seen patient, continued IV ABX, hold off on NGT for now, only if vomiting. Started on steroids. Placed on Levaquin and Flagyl IV. Control pain, IV Morphine available PRN per pain scale. GI prophylaxis: Pepcid Monitor for constipation, Cherelle-Colace available scheduled. Other agents available PRN. Ensure hydration, continue IVF. NPO for now to rest bowel. Community-acquired pneumonia with consolidation mid left lung. CXR reviewed showing mild bilateral diffuse interstitial opacity indicating possible mild pulmonary edema. Patchy atelectasis or consolidation in the mid left lung. Chronic cardiac silhouette enlargement. CBC reviewed showing WBC 9.1, hemoglobin 11.5, hematocrit 35.8. TMAX 100.7 overnight. WBC WNL. Blood cultures ordered and pending. Follow. Influenza negative. Lactic acid 1.3. Will continue IV steroids as ordered. Levaquin IV continued. BP is labile, patient is in pain and also in CHF exacerbation. Will continue slow IVF to hydrate slowly, careful to watch for overload as well as monitor BP. Will place hold parameters on BP medications. Will check labs in am, follow. Bacteremia one out of 4 bottles positive MRSA consult infectious disease. Appreciate recommendations. Continue antibiotics per infectious disease Acute on chronic CHF in exacerbation CXR reviewed showing mild bilateral diffuse interstitial opacity indicating possible mild pulmonary edema. Chronic cardiac silhouette enlargement. BNP is elevated 1161 Continue scheduled IV Lasix BID and potassium supplementation. Strict intake and output. Supportive care. Supplemental O2 to keep sats >92% as needed. Acute on chronic CKD suspect secondary to dehydration to above CMP reviewed showing creatinine 2.5 which is slightly worse than her baseline of 2, BUN 53, GFR 19, bicarbonate 20.4, otherwise essentially unremarkable. DVT Prophylaxis: SCDs. discussed with the patient, nurse, family at bedside Luda Shea MD Apr 22, 2017 08:56
[2017-04-22] MEDS: SODIUM CHLORIDE 0.9% FLUSH 10 ML FLUSH IV FLUSH SCH ×2 (08:57→20:40)
[2017-04-22 08:58] LABS: ALT (GPT) 15 U/L (10-53)
[2017-04-22] MEDS: FAMOTIDINE 20 MG/2 ML VIAL IV PUSH SCH ×2 (08:58→20:40)
[2017-04-22] MEDS: methylPREDNISolone SOD SUCC 40 MG/1 ML VIAL IV PUSH SCH ×2 (08:58→20:40)
[2017-04-22] MEDS: FUROSEMIDE 40 MG/4 ML VIAL IV PUSH SCH ×2 (08:58→17:27)
[2017-04-22 08:59] LABS: AST (GOT) 39 U/L (15-37); GLOMERULAR FILTRATION RATE 25 ML/MIN (>89)
[2017-04-22 09:00] LABS: TOTAL BILIRUBIN ADULT 0.4 MG/DL (0.2-1.0); TOTAL PROTEIN 5.3 GM/DL (6.4-8.2)
[2017-04-22] MEDS: DOCUSATE SODIUM 50 MG/SENNA 8.6 MG TAB PO SCH ×2 (09:00→20:39)
[2017-04-22 09:01] LABS: ALKALINE PHOSPHATASE 258 U/L (45-117)
--- NOTE | 2017-04-22 09:03 | HHI.GIFU ---
Subjective Remarks Less abdominal pain today, requesting to drink. Objective Vitals I&O Vital Signs Date Time Temp Pulse Resp B/P (MAP) Pulse Ox O2 Delivery O2 Flow Rate FiO2 04/22/17 05:10 89 136/69 (91) 04/22/17 00:20 97.6 88 16 110/53 (72) 98 04/21/17 21:39 98.0 70 16 112/68 (83) 97 04/21/17 12:00 98.6 86 18 103/55 (71) 93 04/21/17 09:45 80/47 (58) I/O 04/21/17 04/21/17 04/21/17 04/22/17 04/22/17 04/22/17 07:00 15:00 23:00 07:00 15:00 23:00 Intake Total 1600 ml 350 ml 100 ml 525 ml Output Total 850 ml Balance 1600 ml 350 ml 100 ml -325 ml Intake Oral 0 ml IV Total 1600 ml 350 ml 100 ml 525 ml Output Urine Total 850 ml # Voids 1 2 1 # Bowel Movements 0 3 Laboratory Laboratory Tests Test 04/22/17 07:35 White Blood Count 7.0 Red Blood Count 3.22 Hemoglobin 9.9 Hematocrit 31.7 Mean Corpuscular Volume 98.2 Mean Corpuscular Hemoglobin 30.5 Mean Corpuscular Hemoglobin Concent 31.1 Red Cell Distribution Width 13.7 Platelet Count 205 Mean Platelet Volume 9.5 Neutrophils (%) (Auto) 82.7 Lymphocytes (%) (Auto) 7.4 Monocytes (%) (Auto) 9.5 Eosinophils (%) (Auto) 0.2 Basophils (%) (Auto) 0.2 Neutrophils # (Auto) 5.8 Lymphocytes # (Auto) 0.5 Monocytes # (Auto) 0.7 Eosinophils # (Auto) 0.0 Basophils # (Auto) 0.0 CBC Comment DIFF FINAL Differential Comment Blood Urea Nitrogen 43 Creatinine 2.00 Random Glucose 56 Albumin 2.1 Calcium Level 7.6 Aspartate Amino Transf (AST/SGOT) 39 Alanine Aminotransferase (ALT/SGPT) 15 Total Bilirubin 0.4 Sodium Level 139 Potassium Level 3.6 Chloride Level 111 Carbon Dioxide Level 13.6 Anion Gap 14 Estimat Glomerular Filtration Rate 25 Date/Time Source Procedure Growth Status 04/21/17 01:35 Blood Peripheral Aerobic Blood Culture Pending Received 04/21/17 01:35 Blood Peripheral Anaerobic Blood Culture Pending Received 04/20/17 23:04 Nasal Washing Influenza Types A,B Antigen (PERRI) - Final NEGATIVE FOR FLU A AND B ANTIGEN.... Complete Physical Exam HEENT: Poor vision NECK: Neck is supple, no JVD, no lymphadenopathy. CHEST: Chest is clear to auscultation and percussion. CARDIAC: Regular rate and rhythm with no murmur gallop or rubs. ABDOMEN: Soft, nondistended, nontender; EXTREMITIES: No clubbing, cyanosis, or edema. SKIN: Normal; no rash; no jaundice. 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 Assessment and Plan Plan Assessment - Partial small bowel obstruction- Improving clinically and by KUB, History of Crohns, previously on Remicade, was discontinued when she began chemotherapy for esophageal cancer, currently on Lialda. Reports of vomiting and diarrhea that began on Monday night and abdominal pain that began last night. GS has been consulted, awaiting recommendations. Will hold off on NGT at this point because pt has not vomited since last night and she denies any nausea at this time. Will add Solumedrol. On Levaquin and Flagyl. - History of esophageal cancer- S/P chemo and radiation and ablation in December. CT abdomen and pelvis W/O IV contrast (04/21) --> Abnormality of the distal ileum with wall thickening and luminal narrowing suspicious for stricture. A diffuse small bowel dilation proximal to this suggesting at least a partial small bowel obstruction. There is fluid and gas in the colon. Postsurgical findings upper anterior abdominal wall. Prominent scoliosis and degenerative finding of the lumbar spine. Plan: - Continue Methylprednisolone 40mg IV BID - Clear liquid diet - Monitor labs and KUB - Supportive care - Further recommendations to follow Zeke Edge MD Apr 22, 2017 09:03
[2017-04-22 12:00] VITALS: BP 138/65; PULSE 93; RESP 18; TEMP 98; O2SAT 95
[2017-04-22] MEDS: POTASSIUM CHLORIDE 10 MEQ CAP PO SCH ×2 (13:15→20:39)
[2017-04-22 16:00] VITALS: BP 188/78; PULSE 106; RESP 18; TEMP 98; O2SAT 95
--- NOTE | 2017-04-22 16:31 | PD.CONS ---
History of Present Illness Service Infectious Disease Consult Requested By Dr Shea Reason for Consult Evaluate patient with (+) BC MRSA Primary Care Physician Christopher Vasquez Do, MD Diagnoses: History of Present Illness Patient seen and examined. Records reviewed. Patient is a 67-year-old female, admitted to the hospital complaining of one- day history of nausea vomiting, diarrhea and abdominal pain. She has an diagnosed to have esophageal cancer, and completed chemotherapy and radiation this April 2016. There was no mention of any fever or chills prior to coming into the hospital. On presentation she had a fever 100.7. Chest x-ray showing some findings of pneumonia. 2 blood cultures were done on admission, and one blood culture is reported as growing MRSA. A has not had any fever. Her GI symptoms have improved. Her imaging studies have shown suggestion of bowel obstruction, and she is being treated conservatively with improvement in her symptoms as well as in her radiological findings. Patient states she has had the port since 2011. She has never had any problem with it, or has had any prior infection related to the port. Infectious disease consultation requested to evaluate the patient with positive blood culture. Review of Systems Constitutional: COMPLAINS OF: Fatigue, DENIES: Fever, Chills Eyes: COMPLAINS OF: Vision loss Ears, nose, mouth, throat: DENIES: Nasal discharge, Oral lesions, Throat pain, Ear Pain Respiratory: DENIES: Cough, Sputum production, Shortness of breath Cardiovascular: DENIES: Chest pain, Palpitations Gastrointestinal: COMPLAINS OF: Abdominal pain, Diarrhea, Nausea, Vomiting, Difficulty Swallowing Genitourinary: COMPLAINS OF: Urinary incontinence, DENIES: Dysuria Musculoskeletal: DENIES: Joint pain Integumentary: DENIES: Rash Neurologic: DENIES: Headache Psychiatric: DENIES: Hallucinations Past Family Social History Allergies: Coded Allergies: Sulfa (Sulfonamide Antibiotics) (Unverified Adverse Reaction, Severe, CRAMPS, 04/20/17) gi upset acetaminophen (Unverified Adverse Reaction, Severe, CONSTIPATION, 04/20/17 ) due to hx of chrons oxycodone (Unverified Adverse Reaction, Severe, CONSTIPATION, 04/20/17) due to hx of chrons Past Medical History Esophageal CA Atrial fibrillation History of cardiac window and ablation CAD with LA history Crohn's disease GERD HTN Past Surgical History Hiatal hernia repair Cholecystectomy PEG tube insertion and removal Cardiac stent placement Left chest port Hysterectomy Left knee replacement Tonsillectomy Left above the knee amputation Active Ordered Medications Current Medications Medications (Trade) Dose Ordered Sig/Emily Route Start Time Stop Time Status Last Admin (Pepcid Inj) 10 mg Q12HR IV PUSH 04/21/17 09:00 04/22/17 08:58 Metronidazole 100 ml @ 100 mls/hr Q8H IV 04/21/17 02:00 04/22/17 09:00 Sodium Chloride 1,000 ml @ 50 mls/hr Q20H IV 04/21/17 01:21 04/22/17 02:20 (NS Flush) 2 ml UNSCH PRN IV FLUSH 04/21/17 01:30 (NS Flush) 2 ml BID IV FLUSH 04/21/17 09:00 04/22/17 08:57 (Zofran Inj) 4 mg Q6H PRN IVP 04/21/17 01:30 (Morphine Inj) 1 mg Q3H PRN IV PUSH 04/21/17 01:30 04/21/17 06:33 (Morphine Inj) 2 mg Q3H PRN IV PUSH 04/21/17 01:30 04/22/17 13:16 (Cherelle-Colace) 1 tab BID PO 04/21/17 09:00 04/21/17 08:40 (Milk Of Magnesia Liq) 30 ml Q12H PRN PO 04/21/17 01:30 (Senokot) 17.2 mg Q12H PRN PO 04/21/17 01:30 (Dulcolax Supp) 10 mg DAILY PRN RECTAL 04/21/17 01:30 (Lactulose Liq) 30 ml DAILY PRN PO 04/21/17 01:30 Levofloxacin/ Dextrose 100 ml @ 100 mls/hr Q48H IV 04/23/17 02:00 (Lasix Inj) 40 mg BID@09,18 IV PUSH 04/21/17 18:00 04/22/17 08:58 (KCl) 10 meq BID PO 04/21/17 10:00 04/22/17 13:15 (SoluMEDROL INJ) 40 mg Q12HR IV PUSH 04/21/17 21:00 04/22/17 08:58 Family History Maternal medical history significant for stroke. Paternal medical history significant for lymphoma. Social History Patient states she quit smoking 3 months ago, prior to this she smoked 1/2 ppd for many years. Admits to occasional alcohol use. Denies any illicit drug use. Physical Exam Vital Signs Vital Signs Date Time Temp Pulse Resp B/P (MAP) Pulse Ox O2 Delivery O2 Flow Rate FiO2 04/22/17 13:21 18 04/22/17 12:00 98.0 93 18 138/65 (89) 95 04/22/17 08:00 98.0 77 18 146/65 (92) 97 04/22/17 05:10 89 136/69 (91) 04/22/17 00:20 97.6 88 16 110/53 (72) 98 04/21/17 21:39 98.0 70 16 112/68 (83) 97 Physical Exam GENERAL: Patient is a thin, well-developed patient, awake and alert, not in respiratory distress. SKIN: Warm and dry. No generalized rash, no ecchymoses and no evidence of embolic lesions. HEAD: Atraumatic. Normocephalic. No temporal wasting, or tenderness. EYES: Has opacity both eyes. [place] conjunctiva. No petechia or hemorrhage. EARS, NOSE AND THROAT: Nose without bleeding or purulent nasal discharge. No sinus tenderness. Mucous membranes pink and moist. No oral lesions noted. No exudate. No oral thrush. NECK: Trachea midline. Supple and not tender, no meningeal signs CARDIOVASCULAR: Regular rate and rhythm. No murmurs, rubs or gallops heard. Port L upper chest with no evidence of infection RESPIRATORY: Clear to auscultation. Breath sounds equal bilaterally. No rales , wheezing or rhonchi. Decreased breath sounds at bases ABDOMEN: Mildly distended, non-tender, bowel sounds present and normoactive. No guarding. No rebound. No organomegaly. EXTREMITIES: No clubbing, cyanosis, or edema.No joint effusion, has good ROM. No calf tenderness. Well perfused and warm. NEUROLOGICAL: Awake and alert. Motor grossly within normal limits. No facial symmetry PSYCHIATRIC: calm and cooperative. LINE: No evidence of infection Laboratory Laboratory Tests Test 04/22/17 07:35 White Blood Count 7.0 Red Blood Count 3.22 Hemoglobin 9.9 Hematocrit 31.7 Mean Corpuscular Volume 98.2 Mean Corpuscular Hemoglobin 30.5 Mean Corpuscular Hemoglobin Concent 31.1 Red Cell Distribution Width 13.7 Platelet Count 205 Mean Platelet Volume 9.5 Neutrophils (%) (Auto) 82.7 Lymphocytes (%) (Auto) 7.4 Monocytes (%) (Auto) 9.5 Eosinophils (%) (Auto) 0.2 Basophils (%) (Auto) 0.2 Neutrophils # (Auto) 5.8 Lymphocytes # (Auto) 0.5 Monocytes # (Auto) 0.7 Eosinophils # (Auto) 0.0 Basophils # (Auto) 0.0 CBC Comment DIFF FINAL Differential Comment Blood Urea Nitrogen 43 Creatinine 2.00 Random Glucose 56 Total Protein 5.3 Albumin 2.1 Calcium Level 7.6 Alkaline Phosphatase 258 Aspartate Amino Transf (AST/SGOT) 39 Alanine Aminotransferase (ALT/SGPT) 15 Total Bilirubin 0.4 Sodium Level 139 Potassium Level 3.6 Chloride Level 111 Carbon Dioxide Level 13.6 Anion Gap 14 Estimat Glomerular Filtration Rate 25 B-Type Natriuretic Peptide 3720 Date/Time Source Procedure Growth Status 04/21/17 01:35 Blood Peripheral Aerobic Blood Culture - Preliminary NO GROWTH IN 1 DAY Resulted 04/21/17 01:35 Blood Peripheral Anaerobic Blood Culture - Preliminary NO GROWTH IN 1 DAY Resulted 04/20/17 23:04 Nasal Washing Influenza Types A,B Antigen (PERRI) - Final NEGATIVE FOR FLU A AND B ANTIGEN.... Complete Result Diagram: 04/22/17 0735 04/22/17 0735 Imaging RADIOLOGY STUDIES/FILMS REVIEWED Last Impressions Abdomen X-Ray 04/22/17 0600 Signed Impressions: Service Date/Time: Saturday, April 22, 2017 05:26 - CONCLUSION: Decreasing small bowel distention, currently mild. Joseph Luo MD Abdomen/Pelvis CT 04/20/17 3178 Signed Impressions: Service Date/Time: Friday, April 21, 2017 00:12 - CONCLUSION: 1. Abnormality of the distal ileum with wall thickening and luminal narrowing suspicious for stricture. A diffuse small bowel dilatation proximal to this suggesting at least a partial small bowel obstruction. There is fluid and gas in the colon. 2. Postsurgical findings upper anterior abdominal wall. 3. Prominent scoliosis and degenerative findings of the lumbar spine. Hawk Osullivan MD Chest X-Ray 04/20/17 0000 Signed Impressions: Service Date/Time: March 23:14 - CONCLUSION: 1. Mild bilateral diffuse interstitial opacity indicating possible mild pulmonary edema. 2. Patchy atelectasis or consolidation in the mid left lung. 3. Chronic cardiac silhouette enlargement. Hawk Osullivan MD Chest CT 04/20/17 0000 Signed Impressions: Service Date/Time: Friday, April 21, 2017 00:12 - CONCLUSION: 1. Mild bilateral interstitial pulmonary opacity more prominent than on the comparison study likely representing ulnar edema. 2. Trace left pleural effusion. 3. Patchy lateral left upper lobe groundglass opacity indicating early consolidation or atelectasis. 4. 4 mm nodular density in the right middle lobe not seen on prior study. Hawk Osullivan MD Assessment and Plan Assessment and Plan IMPRESSION N/V, due to PSBO, improving One (+) BC with MRSA, ?significance - usually not a contaminant - she has a port Possible PNA, aspiration Hx esophageal CA Renal insufficiency RECOMMENDATION On Levaquin and Flagyl for aspiration Repeat BC - 1 from port and one periphery Give dose of Vanco and check level Will determine need for Rx, course of Rx for MRSA once work-up is completed GI and GS following patient for her GI problems Follow temps Monitor progress I will follow along with you Thank you for this consultation Kiara Kirkpatrick MD Apr 22, 2017 16:30
[2017-04-22] MEDS ORDERED: VANCOMYCIN INJ 1,000 MG in SODIUM CHLOR 0.9% 250 ML INJ 250 ML IV ONE (16:45)
[2017-04-22 21:02] VITALS: BP 110/72; PULSE 67; RESP 18; TEMP 98.1; O2SAT 96
[2017-04-23] MEDS: ONDANSETRON HCL 4 MG/2 ML VIAL IVP PRN ×4 (00:35→22:03)
[2017-04-23] MEDS: MORPHINE SULFATE 2 MG/ML INJ IV PUSH PRN ×7 (00:36→23:08)
[2017-04-23 00:46] VITALS: BP 118/76; PULSE 69; RESP 16; TEMP 97; O2SAT 95
[2017-04-23] MEDS: metroNIDAZOLE 500 MG INJ 100 ML IV SCH ×3 (03:23→18:13)
[2017-04-23] MEDS: LEVOFLOXACIN 500 MG PREMIX INJ 100 ML IV SCH (03:24)
[2017-04-23] MEDS: TRIMETHOBENZAMIDE INJ 200 MG/2 ML VIAL IM PRN (04:22)
[2017-04-23 08:00] VITALS: BP 142/77; PULSE 71; RESP 14; TEMP 96.4; O2SAT 98
[2017-04-23] MEDS: methylPREDNISolone SOD SUCC 40 MG/1 ML VIAL IV PUSH SCH ×2 (08:31→20:08)
[2017-04-23] MEDS: FUROSEMIDE 40 MG/4 ML VIAL IV PUSH SCH ×2 (08:31→17:32)
[2017-04-23] MEDS: SODIUM CHLORIDE 0.9% FLUSH 10 ML FLUSH IV FLUSH SCH ×2 (08:32→20:06)
[2017-04-23] MEDS: FAMOTIDINE 20 MG/2 ML VIAL IV PUSH SCH ×2 (08:32→20:08)
[2017-04-23] MEDS: DOCUSATE SODIUM 50 MG/SENNA 8.6 MG TAB PO SCH ×2 (08:32→20:10)
[2017-04-23] MEDS: POTASSIUM CHLORIDE 10 MEQ CAP PO SCH ×2 (08:32→20:10)
--- NOTE | 2017-04-23 09:43 | HHI.PR ---
Subjective Remarks Feels less abd pain wants to try regular diet. Some nausea but no vomiting. No chest pain or sob. No fever or chills. Objective Vitals Vital Signs Date Time Temp Pulse Resp B/P (MAP) Pulse Ox O2 Delivery O2 Flow Rate FiO2 04/23/17 04:31 04/23/17 00:46 97.0 69 16 118/76 (90) 95 04/22/17 21:02 98.1 67 18 110/72 (85) 96 04/22/17 17:32 18 04/22/17 16:00 98.0 106 18 188/78 (114) 95 04/22/17 12:00 98.0 93 18 138/65 (89) 95 I/O 04/22/17 04/22/17 04/22/17 04/23/17 04/23/17 04/23/17 07:00 15:00 23:00 07:00 15:00 23:00 Intake Total 525 ml 650 ml Output Total 850 ml 1000 ml 850 ml Balance -325 ml -350 ml -850 ml Intake Oral 300 ml IV Total 525 ml 350 ml Output Urine Total 850 ml 1000 ml 850 ml # Bowel Movements 3 Result Diagram: 04/22/17 0735 04/22/17 0735 Imaging Last Impressions Abdomen X-Ray 04/22/17 0600 Signed Impressions: Service Date/Time: Saturday, April 22, 2017 05:26 - CONCLUSION: Decreasing small bowel distention, currently mild. Joseph Luo MD Abdomen/Pelvis CT 04/20/17 3538 Signed Impressions: Service Date/Time: Friday, April 21, 2017 00:12 - CONCLUSION: 1. Abnormality of the distal ileum with wall thickening and luminal narrowing suspicious for stricture. A diffuse small bowel dilatation proximal to this suggesting at least a partial small bowel obstruction. There is fluid and gas in the colon. 2. Postsurgical findings upper anterior abdominal wall. 3. Prominent scoliosis and degenerative findings of the lumbar spine. Hawk Osullivan MD Chest X-Ray 04/20/17 0000 Signed Impressions: Service Date/Time: March 23:14 - CONCLUSION: 1. Mild bilateral diffuse interstitial opacity indicating possible mild pulmonary edema. 2. Patchy atelectasis or consolidation in the mid left lung. 3. Chronic cardiac silhouette enlargement. Hawk Osullivan MD Chest CT 04/20/17 0000 Signed Impressions: Service Date/Time: Friday, April 21, 2017 00:12 - CONCLUSION: 1. Mild bilateral interstitial pulmonary opacity more prominent than on the comparison study likely representing ulnar edema. 2. Trace left pleural effusion. 3. Patchy lateral left upper lobe groundglass opacity indicating early consolidation or atelectasis. 4. 4 mm nodular density in the right middle lobe not seen on prior study. Hawk Osullivan MD Objective Remarks GENERAL: This is a well-nourished, well-developed female patient, lying in bed in no apparent distress. CARDIOVASCULAR: Regular rate and rhythm without murmurs, gallops, or rubs. RESPIRATORY: Clear to auscultation. Breath sounds equal bilaterally. No wheezes , rales, or rhonchi. GASTROINTESTINAL: Diffuse tenderness to palpation with worse in severity in left lower quadrant. Abdomen soft, nondistended. No guarding. MUSCULOSKELETAL: Extremities without clubbing, cyanosis, or edema. Left BKA amputation. NEUROLOGICAL: Awake and alert. Cranial nerves II through XII intact. Motor and sensory grossly within normal limits. Five out of 5 muscle strength in all muscle groups. Normal speech. A/P Problem List: (1) Small bowel obstruction ICD Code: K56.69 - Small bowel obstruction Status: Acute Assessment and Plan Ms. Pete is a 67-year-old female patient with a known medical history of esophageal CA, atrial fibrillation, CAD with SC and cardiac stents, HTN, and Crohn's disease who presented to the ED with complaints of nausea, vomiting, diarrhea and abdominal pain. Partial small bowel obstruction History of esophageal cancer Abdominal/Pelvis CT reviewed showing abnormality of the distal ileum with wall thickening and luminal narrowing suspicious for stricture. A diffuse small bowel dilatation proximal to this suggesting at least a partial small bowel obstruction. There is fluid and gas in the colon. General surgery has been consulted for SBO, appreciate further input and recommendations. Conservative management t this time. GI has been consulted and seen patient, continued IV ABX, hold off on NGT for now, only if vomiting. Started on steroids. Placed on Levaquin and Flagyl IV. Control pain, IV Morphine available PRN per pain scale. GI prophylaxis: Pepcid Monitor for constipation, Cherelle-Colace available scheduled. Other agents available PRN. Ensure hydration, continue IVF. NPO for now to rest bowel. Community-acquired pneumonia with consolidation mid left lung. CXR reviewed showing mild bilateral diffuse interstitial opacity indicating possible mild pulmonary edema. Patchy atelectasis or consolidation in the mid left lung. Chronic cardiac silhouette enlargement. CBC reviewed showing WBC 9.1, hemoglobin 11.5, hematocrit 35.8. TMAX 100.7 overnight. WBC WNL. Blood cultures ordered and pending. Follow. Influenza negative. Lactic acid 1.3. Will continue IV steroids as ordered. Levaquin IV continued. BP is labile, patient is in pain and also in CHF exacerbation. Will continue slow IVF to hydrate slowly, careful to watch for overload as well as monitor BP. Will place hold parameters on BP medications. Will check labs in am, follow. Bacteremia one out of 4 bottles positive MRSA consult infectious disease. Appreciate recommendations. Continue antibiotics per infectious disease Acute on chronic CHF in exacerbation CXR reviewed showing mild bilateral diffuse interstitial opacity indicating possible mild pulmonary edema. Chronic cardiac silhouette enlargement. BNP is elevated 1161 Continue scheduled IV Lasix BID and potassium supplementation. Strict intake and output. Supportive care. Supplemental O2 to keep sats >92% as needed. Acute on chronic CKD suspect secondary to dehydration to above CMP reviewed showing creatinine 2.5 which is slightly worse than her baseline of 2, BUN 53, GFR 19, bicarbonate 20.4, otherwise essentially unremarkable. DVT Prophylaxis: SCDs. discussed with the patient, nurse dC plan with bacteremia. Cleared by gen surgery no surgical intervention. Bacteremia MRSA 1/4 bottles, ID follows , GI follows . DC when improved , tolerates food and cleared by ID and GI Luda Shea MD Apr 23, 2017 09:43
[2017-04-23 12:00] VITALS: BP 156/81; PULSE 80; RESP 20; TEMP 97.2; O2SAT 97
--- NOTE | 2017-04-23 14:01 | HHI.GIFU ---
Subjective Remarks tolerating diet well, asymptomatic now. Objective Vitals I&O Vital Signs Date Time Temp Pulse Resp B/P (MAP) Pulse Ox O2 Delivery O2 Flow Rate FiO2 04/23/17 12:00 97.2 80 20 156/81 (106) 97 04/23/17 08:00 96.4 71 14 142/77 (98) 98 04/23/17 04:31 04/23/17 00:46 97.0 69 16 118/76 (90) 95 04/22/17 21:02 98.1 67 18 110/72 (85) 96 04/22/17 17:32 18 04/22/17 16:00 98.0 106 18 188/78 (114) 95 I/O 04/22/17 04/22/17 04/22/17 04/23/17 04/23/17 04/23/17 07:00 15:00 23:00 07:00 15:00 23:00 Intake Total 525 ml 650 ml 458 ml Output Total 850 ml 1000 ml 850 ml Balance -325 ml -350 ml -850 ml 458 ml Intake Oral 300 ml 358 ml IV Total 525 ml 350 ml 100 ml Output Urine Total 850 ml 1000 ml 850 ml # Bowel Movements 3 Laboratory Laboratory Tests Test 04/23/17 09:13 B-Type Natriuretic Peptide 3908 Random Vancomycin Level 15.5 Date/Time Source Procedure Growth Status 04/22/17 17:55 Blood Peripheral Aerobic Blood Culture - Preliminary NO GROWTH IN 1 DAY Resulted 04/22/17 17:55 Blood Peripheral Anaerobic Blood Culture - Preliminary NO GROWTH IN 1 DAY Resulted 04/20/17 23:04 Nasal Washing Influenza Types A,B Antigen (PERRI) - Final NEGATIVE FOR FLU A AND B ANTIGEN.... Complete Physical Exam HEENT: Poor vision NECK: Neck is supple, no JVD, no lymphadenopathy. CHEST: Chest is clear to auscultation and percussion. CARDIAC: Regular rate and rhythm with no murmur gallop or rubs. ABDOMEN: Soft, nondistended, nontender; EXTREMITIES: No clubbing, cyanosis, or edema. SKIN: Normal; no rash; no jaundice. INTERNAL MEDICINE DOCTOR: No focal deficits; alert and oriented times three. Assessment and Plan Plan Assessment - Partial small bowel obstruction- Improving clinically and by KUB, History of Crohns, previously on Remicade, was discontinued when she began chemotherapy for esophageal cancer, currently on Lialda. Reports of vomiting and diarrhea that began on Monday night and abdominal pain that began last night. GS has been consulted, awaiting recommendations. Will hold off on NGT at this point because pt has not vomited since last night and she denies any nausea at this time. Will add Solumedrol. On Levaquin and Flagyl. - History of esophageal cancer- S/P chemo and radiation and ablation in December. CT abdomen and pelvis W/O IV contrast (04/21) --> Abnormality of the distal ileum with wall thickening and luminal narrowing suspicious for stricture. A diffuse small bowel dilation proximal to this suggesting at least a partial small bowel obstruction. There is fluid and gas in the colon. Postsurgical findings upper anterior abdominal wall. Prominent scoliosis and degenerative finding of the lumbar spine. Plan: - Prednisone with tapered dose - SOSA - Supportive care - Further recommendations to follow Zeke Edge MD Apr 23, 2017 14:01
[2017-04-23 16:00] VITALS: BP 151/80; PULSE 84; RESP 20; TEMP 98.5; O2SAT 99
[2017-04-23] MEDS ORDERED: VANCOMYCIN INJ 1,000 MG in SODIUM CHLOR 0.9% 250 ML INJ 250 ML IV ONE (16:45)
[2017-04-23] MEDS: SODIUM CHLOR 0.9% 1000 ML INJ 1,000 ML IV SCH (18:13)
[2017-04-23 19:46] VITALS: BP 142/73; PULSE 85; RESP 18; TEMP 97.9; O2SAT 95
[2017-04-24 01:16] VITALS: BP 144/66; PULSE 80; RESP 18; TEMP 98.2; O2SAT 94
[2017-04-24] MEDS: metroNIDAZOLE 500 MG INJ 100 ML IV SCH ×3 (02:18→17:26)
[2017-04-24] MEDS: MORPHINE SULFATE 2 MG/ML INJ IV PUSH PRN ×5 (02:19→22:45)
[2017-04-24] MEDS: ONDANSETRON HCL 4 MG/2 ML VIAL IVP PRN ×2 (06:44→17:21)
[2017-04-24 07:50] VITALS: BP 175/79; PULSE 83; RESP 20; TEMP 96.2; O2SAT 95
--- NOTE | 2017-04-24 09:18 | HHI.PR ---
Subjective Remarks Follow up small bowel obstruction, CHF and PNA. Patient seen and examined, at bedside with therapy dog. Patient states that she slept well, feeling overall much better. Denies any pain or chest pain. Has been eating well , denies any nausea, vomiting or abdominal pain. Still with loose stools. Afebrile. VSS. Denies any cough. Objective Vitals Vital Signs Date Time Temp Pulse Resp B/P (MAP) Pulse Ox O2 Delivery O2 Flow Rate FiO2 04/24/17 05:10 04/24/17 01:16 98.2 80 18 144/66 (92) 94 04/23/17 19:46 97.9 85 18 142/73 (96) 95 04/23/17 16:00 98.5 84 20 151/80 (103) 99 04/23/17 12:00 97.2 80 20 156/81 (106) 97 I/O 04/23/17 04/23/17 04/23/17 04/24/17 04/24/17 04/24/17 07:00 15:00 23:00 07:00 15:00 23:00 Intake Total 1178 ml 850 ml 675 ml Output Total 850 ml 500 ml 850 ml Balance -850 ml 1178 ml 350 ml -175 ml Intake Oral 1078 ml IV Total 100 ml 850 ml 675 ml Output Urine Total 850 ml 500 ml 850 ml Result Diagram: 04/22/17 0735 04/22/17 0735 Imaging Last Impressions Abdomen X-Ray 04/22/17 0600 Signed Impressions: Service Date/Time: Saturday, April 22, 2017 05:26 - CONCLUSION: Decreasing small bowel distention, currently mild. Joseph Luo MD Abdomen/Pelvis CT 04/20/17 3008 Signed Impressions: Service Date/Time: Friday, April 21, 2017 00:12 - CONCLUSION: 1. Abnormality of the distal ileum with wall thickening and luminal narrowing suspicious for stricture. A diffuse small bowel dilatation proximal to this suggesting at least a partial small bowel obstruction. There is fluid and gas in the colon. 2. Postsurgical findings upper anterior abdominal wall. 3. Prominent scoliosis and degenerative findings of the lumbar spine. Hawk Osullivan MD Chest X-Ray 04/20/17 0000 Signed Impressions: Service Date/Time: March 23:14 - CONCLUSION: 1. Mild bilateral diffuse interstitial opacity indicating possible mild pulmonary edema. 2. Patchy atelectasis or consolidation in the mid left lung. 3. Chronic cardiac silhouette enlargement. Hawk Osullivan MD Chest CT 04/20/17 0000 Signed Impressions: Service Date/Time: Friday, April 21, 2017 00:12 - CONCLUSION: 1. Mild bilateral interstitial pulmonary opacity more prominent than on the comparison study likely representing ulnar edema. 2. Trace left pleural effusion. 3. Patchy lateral left upper lobe groundglass opacity indicating early consolidation or atelectasis. 4. 4 mm nodular density in the right middle lobe not seen on prior study. Hawk Osullivan MD Objective Remarks GENERAL: This is a well-nourished, well-developed female patient, lying in bed in no apparent distress. SKIN: No rashes, ecchymoses or lesions. Warm and dry. HEAD: Atraumatic. Normocephalic. EYES: Pupils equal round and reactive. Extraocular motions intact. No scleral icterus. No injection or drainage. ENT: Nose without bleeding, purulent drainage or septal hematoma. Throat without erythema, tonsillar hypertrophy or exudate. Uvula midline. Airway patent. NECK: Trachea midline. No JVD. Supple. CARDIOVASCULAR: Regular rate and rhythm without murmurs, gallops, or rubs. RESPIRATORY: Clear to auscultation. Breath sounds equal bilaterally. No wheezes , rales, or rhonchi. GASTROINTESTINAL: No tenderness. Abdomen soft, nondistended. No guarding. MUSCULOSKELETAL: Extremities without clubbing, cyanosis, or edema. Left BKA amputation. NEUROLOGICAL: Awake and alert. Cranial nerves II through XII intact. Motor and sensory grossly within normal limits. Five out of 5 muscle strength in all muscle groups. Normal speech. A/P Problem List: (1) Small bowel obstruction ICD Code: K56.69 - Small bowel obstruction Status: Acute (2) Pneumonia ICD Code: J18.9 - Pneumonia, unspecified organism (3) Acute on chronic systolic (congestive) heart failure ICD Code: I50.23 - Acute on chronic systolic (congestive) heart failure Assessment and Plan Ms. Pete is a 67-year-old female patient with a known medical history of esophageal CA, atrial fibrillation, CAD with ME and cardiac stents, HTN, and Crohn's disease who presented to the ED with complaints of nausea, vomiting, diarrhea and abdominal pain. 04/23/17: SC plan with bacteremia. Cleared by gen surgery no surgical intervention. Bacteremia MRSA / bottles, ID and GI following. DC when improved , tolerates food and cleared by ID and GI 04/24/16: Repeat blood cultures NGTD. Afebrile. GI and ID following. Continue steroid taper. ID recs for IV Vanco x 2 weeks. Arranging [facility]. Partial small bowel obstruction History of esophageal cancer Abdominal/Pelvis CT reviewed showing abnormality of the distal ileum with wall thickening and luminal narrowing suspicious for stricture. A diffuse small bowel dilatation proximal to this suggesting at least a partial small bowel obstruction. There is fluid and gas in the colon. General surgery has been consulted for SBO, appreciate further input and recommendations. GI has been consulted and seen patient, continued IV ABX, hold off on NGT for now, only if vomiting. Placed on Levaquin and Flagyl IV. Control pain, IV Morphine available PRN per pain scale. GI prophylaxis: Pepcid Monitor for constipation, Cherelle-Colace available scheduled. Other agents available PRN. Ensure hydration, continue IVF. NPO for now to rest bowel. Community-acquired pneumonia with consolidation mid left lung. CXR reviewed showing mild bilateral diffuse interstitial opacity indicating possible mild pulmonary edema. Patchy atelectasis or consolidation in the mid left lung. Chronic cardiac silhouette enlargement. CBC reviewed showing WBC 9.1, hemoglobin 11.5, hematocrit 35.8. TMAX 100.7 overnight. WBC WNL. Blood cultures ordered and pending. Follow. Influenza negative. Lactic acid 1.3. Will continue IV steroids as ordered. Levaquin IV continued. BP is labile, patient is in pain and also in CHF exacerbation. Will continue slow IVF to hydrate slowly, careful to watch for overload as well as monitor BP. Will place hold parameters on BP medications. Will check labs in am, follow. Acute on chronic CHF in exacerbation CXR reviewed showing mild bilateral diffuse interstitial opacity indicating possible mild pulmonary edema. Chronic cardiac silhouette enlargement. BNP is elevated 1161 Continue scheduled IV Lasix BID and potassium supplementation. Strict intake and output. Supportive care. Supplemental O2 to keep sats >92% as needed. Acute on chronic CKD suspect secondary to dehydration to above CMP reviewed showing creatinine 2.5 which is slightly worse than her baseline of 2, BUN 53, GFR 19, bicarbonate 20.4, otherwise essentially unremarkable. DVT Prophylaxis: SCDs. Discharge Planning DC tomorrow. CM assisting with HHC and home IV Vanco infusions x 2 weeks. Madison Tom Apr 24, 2017 09:18
[2017-04-24] MEDS: methylPREDNISolone SOD SUCC 40 MG/1 ML VIAL IV PUSH SCH ×2 (09:57→22:42)
[2017-04-24] MEDS: DOCUSATE SODIUM 50 MG/SENNA 8.6 MG TAB PO SCH ×2 (09:57→22:43)
[2017-04-24] MEDS: SODIUM CHLORIDE 0.9% FLUSH 10 ML FLUSH IV FLUSH SCH ×2 (09:58→22:43)
[2017-04-24] MEDS: FUROSEMIDE 40 MG/4 ML VIAL IV PUSH SCH ×2 (09:58→18:29)
[2017-04-24] MEDS: FAMOTIDINE 20 MG/2 ML VIAL IV PUSH SCH ×2 (09:58→22:43)
[2017-04-24] MEDS: SODIUM CHLOR 0.9% 1000 ML INJ 1,000 ML IV SCH (09:59)
[2017-04-24] MEDS: POTASSIUM CHLORIDE 10 MEQ CAP PO SCH ×2 (10:06→22:43)
[2017-04-24] MEDS ORDERED: Vancomycin Consult Pharmacy 1 EA OTHER SCH (10:30)
[2017-04-24 11:30] VITALS: BP 164/75; PULSE 85; RESP 20; TEMP 97.7; O2SAT 96
--- NOTE | 2017-04-24 12:16 | HHI.DS ---
Discharge Summary Admission Date Apr 21, 2017 at 01:31 Discharge Date: Apr 24, 2017 Admitting Diagnosis Small bowel obstruction, congestive heart failure, pneumonia (1) Small bowel obstruction ICD Code: K56.69 - Small bowel obstruction Status: Acute (2) Pneumonia ICD Code: J18.9 - Pneumonia, unspecified organism (3) Acute on chronic systolic (congestive) heart failure ICD Code: I50.23 - Acute on chronic systolic (congestive) heart failure Procedures . Brief History - From Admission Ms. Pete is a 67-year-old female patient with a known medical history of esophageal CA, atrial fibrillation, CAD with PR and cardiac stents, HTN, and Crohn's disease who presented to the ED via [facility] with complaints of nausea, vomiting, diarrhea and abdominal pain x 1 day. Patient is legally blind, at bedside who is also somewhat blind, with therapy dog. Patient states that she vomited roughly 5 times with associated diarrhea, did not recognize any blood in stool. Denies any recent fever and chills, chest pain or dysuria. Over the past week she recognized cramping in her abdomen and has had a diminished appetite over the week. Was diagnosed with esophageal cancer in April, last chemotherapy and radiation back in April, oncologist is Dr. Steinberg. She had an esophageal ablation procedure done about 4 months ago and per , patient seems to have been declining since. At the time of assessment patient has present abdominal pain, worse in her left lower quadrant. Last emesis and BM was 2130 last evening. Denies passing any gas. CBC/BMP: 04/22/17 0735 04/22/17 0735 Significant Findings Laboratory Tests Test 04/22/17 07:35 04/23/17 09:13 04/24/17 06:40 Red Blood Count 3.22 MIL/MM3 (4.00-5.30) Hemoglobin 9.9 GM/DL (11.6-15.3) Hematocrit 31.7 % (35.0-46.0) Mean Corpuscular Hemoglobin Concent 31.1 % (32.0-36.0) Neutrophils (%) (Auto) 82.7 % (16.0-70.0) Lymphocytes (%) (Auto) 7.4 % (9.0-44.0) Monocytes (%) (Auto) 9.5 % (0.0-8.0) Lymphocytes # (Auto) 0.5 TH/MM3 (1.0-4.8) Blood Urea Nitrogen 43 MG/DL (7-18) Creatinine 2.00 MG/DL (0.50-1.00) Random Glucose 56 MG/DL (74-106) Total Protein 5.3 GM/DL (6.4-8.2) Albumin 2.1 GM/DL (3.4-5.0) Calcium Level 7.6 MG/DL (8.5-10.1) Alkaline Phosphatase 258 U/L (45-117) Aspartate Amino Transf (AST/SGOT) 39 U/L (15-37) Chloride Level 111 MEQ/L (98-107) Carbon Dioxide Level 13.6 MEQ/L (21.0-32.0) Estimat Glomerular Filtration Rate 25 ML/MIN (>89) B-Type Natriuretic Peptide 3720 PG/ML (0-100) 3908 PG/ML (0-100) GREATER THAN 5000 PG/ML Imaging Last Impressions Abdomen X-Ray 04/22/17 0600 Signed Impressions: Service Date/Time: Saturday, April 22, 2017 05:26 - CONCLUSION: Decreasing small bowel distention, currently mild. Joseph Luo MD Abdomen/Pelvis CT 04/20/17 [id number] Signed Impressions: Service Date/Time: Friday, April 21, 2017 00:12 - CONCLUSION: 1. Abnormality of the distal ileum with wall thickening and luminal narrowing suspicious for stricture. A diffuse small bowel dilatation proximal to this suggesting at least a partial small bowel obstruction. There is fluid and gas in the colon. 2. Postsurgical findings upper anterior abdominal wall. 3. Prominent scoliosis and degenerative findings of the lumbar spine. Hawk Osullivan MD Chest X-Ray 04/20/17 0000 Signed Impressions: Service Date/Time: March 23:14 - CONCLUSION: 1. Mild bilateral diffuse interstitial opacity indicating possible mild pulmonary edema. 2. Patchy atelectasis or consolidation in the mid left lung. 3. Chronic cardiac silhouette enlargement. Hawk Osullivan MD Chest CT 04/20/17 0000 Signed Impressions: Service Date/Time: Friday, April 21, 2017 00:12 - CONCLUSION: 1. Mild bilateral interstitial pulmonary opacity more prominent than on the comparison study likely representing ulnar edema. 2. Trace left pleural effusion. 3. Patchy lateral left upper lobe groundglass opacity indicating early consolidation or atelectasis. 4. 4 mm nodular density in the right middle lobe not seen on prior study. Hawk Osullivan MD PE at Discharge GENERAL: This is a well-nourished, well-developed female patient, lying in bed in no apparent distress. SKIN: No rashes, ecchymoses or lesions. Warm and dry. HEAD: Atraumatic. Normocephalic. EYES: Pupils equal round and reactive. Extraocular motions intact. No scleral icterus. No injection or drainage. ENT: Nose without bleeding, purulent drainage or septal hematoma. Throat without erythema, tonsillar hypertrophy or exudate. Uvula midline. Airway patent. NECK: Trachea midline. No JVD. Supple. CARDIOVASCULAR: Regular rate and rhythm without murmurs, gallops, or rubs. RESPIRATORY: Clear to auscultation. Breath sounds equal bilaterally. No wheezes , rales, or rhonchi. GASTROINTESTINAL: No tenderness. Abdomen soft, nondistended. No guarding. MUSCULOSKELETAL: Extremities without clubbing, cyanosis, or edema. Left BKA amputation. NEUROLOGICAL: Awake and alert. Cranial nerves II through XII intact. Motor and sensory grossly within normal limits. Five out of 5 muscle strength in all muscle groups. Normal speech. Hospital Course Ms. Pete is a 67-year-old female patient with a known medical history of esophageal CA, atrial fibrillation, CAD with PR and cardiac stents, HTN, and Crohn's disease who presented to the ED with complaints of nausea, vomiting, diarrhea and abdominal pain. Abdominal/Pelvis CT was done showing abnormality of the distal ileum with wall thickening and luminal narrowing suspicious for stricture. A diffuse small bowel dilatation proximal to this suggesting at least a partial small bowel obstruction. There is fluid and gas in the colon. General surgery has been consulted for SBO, recommended conservative management. Patient was placed on Levaquin and Flagyl IV. Pain control with IV Morphine. GI followed patient while hospitalized. Was given steroids and antibiotics. Patient was also found to have community-acquired pneumonia with consolidation mid left lung. CXR showing mild bilateral diffuse interstitial opacity indicating possible mild pulmonary edema. Patchy atelectasis or consolidation in the mid left lung. Chronic cardiac silhouette enlargement. CBC reviewed showing WBC 9.1, hemoglobin 11.5, hematocrit 35.8. With fevers. On levaquin and Vancomycin. ID followed patient while hospitalized. Acute on chronic CHF in exacerbation with CXR showing mild bilateral diffuse interstitial opacity indicating possible mild pulmonary edema. Chronic cardiac silhouette enlargement. BNP elevated 1161. Was on Lasix 40 mg IV BID. Upon discharge ID recommends IV Vanco x 2 weeks. Arrangement for HHC and infusion at home. Pt Condition on Discharge: Good Discharge Disposition: Discharge Home Discharge Time: > 30 minutes Discharge Instructions DIET: Follow Instructions for: Heart Healthy Diet Activities you can perform: Regular-No Restrictions Follow up Referrals: Gastroenterology - 1 Week PCP Follow-up - 1 Week Madison Tom Apr 24, 2017 12:16
--- NOTE | 2017-04-24 12:40 | HHI.FF ---
Face to Face Verification Diagnosis: (1) Acute on chronic systolic (congestive) heart failure (2) Pneumonia (3) Small bowel obstruction Physical Therapy Order: Evaluate and Treat, Strength and gait training Home Health Nursing Order: Medical education Medication education-adverse effect Nursing assessment with vital signs IV medication administration I have seen patient Hortensia Pete on 04/24/17. My clinical findings support the need for the requested home health care services because: Deconditioned w/ increased weakness Limited ability to care for self I certify that my clinical findings support that this patient is homebound because: Impaired cognitive ability/safety Madison Tom Apr 24, 2017 12:40
--- NOTE | 2017-04-24 13:48 | HHI.FF ---
Infusion Therapy Location of Infusion Therapy: Home Health Care IV Infusion Order Patient Information Patient Weight 47.1 kg Diagnosis: Diagnosis MRSA Bacteremia Coded Allergies: Sulfa (Sulfonamide Antibiotics) (Unverified Adverse Reaction, Severe, CRAMPS, 04/20/17) gi upset acetaminophen (Unverified Adverse Reaction, Severe, CONSTIPATION, 04/20/17 ) due to hx of chrons oxycodone (Unverified Adverse Reaction, Severe, CONSTIPATION, 04/20/17) due to hx of chrons Administer Medication Vancomycin 1 gram IV q 48 hours Stop Treatment: May 04, 2017 Additional Information Venous access: Implanted Port Additional Instructions [x] Peripheral flush and dressing changes per protocol [x] Implanted port and central casing in line feeder: * Implanted port: 10 ml Normal Saline followed by 5 ml Heparin 100 units/ml Heparin flush after each use and monthly to maintain. [] May leave port accessed during therapy. [] May leave peripheral site accessed for duration of therapy. [x] If patient has SOB or respiratory distress, check oxygen saturation. If less than 90% or clinical signs of respiratory distress, administer oxygen at 2 L/min. via nasal cannula and notify physician. [x] Anaphylaxis/Reaction orders: * Stop infusion. * Keep IV line open with saline flush. * Notify physician. * Monitor vital signs every 15 minutes until symptoms resolve. * Check Oxygen saturation; Oxygen at 2 L/min. via nasal cannula if less than 90% or clinical signs of respiratory distress. * Administer diphenhydramine (Benadryl) 25 mg IV STAT, (unless patient has received as pre-med). May repeat once, if necessary. * Solu-Cortef 250 mg IVP over 30-60 seconds, use 100 mg vials for each dissolution. * Epinephrine (1mg/1 ml) 0.3 mg subcutaneously or IVP now with any signs of respiratory distress. * Check with physician for new additional pre-med orders if patient is re- challenged or re-treated. [x] May remove PICC line when treatment complete, after confirming with Physician. [x] If the patient is admitted to the hospital, the ED, or transferred via [facility] , complete transfer form including medication reconciliation order sheet. Laboratory Tests Weekly Labs: CBC w/diff, Creatinine, Vancomycin Trough (Labs every Monday or Monday - call me with results. ) Kiara Kirkpatrick MD Apr 24, 2017 13:48
[2017-04-24] MEDS ORDERED: cloNIDine HCL 0.1 MG TAB PO PRN (17:15)
[2017-04-24] MEDS ORDERED: VANCOMYCIN 1,000 MG/NS 250 ML IV ONE ×2 (18:00)
[2017-04-24 20:00] VITALS: BP 150/78; PULSE 85; RESP 18; TEMP 97.8; O2SAT 96
[2017-04-24] MEDS: TRIMETHOBENZAMIDE INJ 200 MG/2 ML VIAL IM PRN (22:56)
[2017-04-25] VITALS: BP 159/70; PULSE 77; RESP 18; TEMP 96.9; O2SAT 98
[2017-04-25] MEDS: metroNIDAZOLE 500 MG INJ 100 ML IV SCH ×2 (02:43→09:32)
[2017-04-25] MEDS: LEVOFLOXACIN 500 MG PREMIX INJ 100 ML IV SCH (02:44)
[2017-04-25] MEDS: MORPHINE SULFATE 2 MG/ML INJ IV PUSH PRN ×2 (06:58→13:27)
[2017-04-25 08:00] VITALS: BP 174/79; PULSE 83; RESP 18; TEMP 98.3; O2SAT 95
[2017-04-25 08:43] LABS: AUTOMATED NEUTROPHIL # 4.3 TH/MM3 (1.8-7.7); BASOPHIL % 0.2 % (0.0-2.0); EOSINOPHIL % 0.1 % (0.0-4.0); HEMATOCRIT 34.2 % (35.0-46.0); HEMOGLOBIN 10.9 GM/DL (11.6-15.3); LYMPH % 8.3 % (9.0-44.0); LYMPHOCYTE # 0.5 TH/MM3 (1.0-4.8); MEAN CELL VOLUME 96.2 FL (80.0-100.0); MEAN CORPUSCULAR HEMOGLOBIN 30.8 PG (27.0-34.0); MEAN PLATELET VOLUME 8.3 FL (7.0-11.0); MONO % 10.8 % (0.0-8.0); MONOCYTE # 0.6 TH/MM3 (0-0.9); NEUT % 80.6 % (16.0-70.0); PLATELET COUNT 218 TH/MM3 (150-450); RED BLOOD COUNT 3.55 MIL/MM3 (4.00-5.30); RED CELL DISTRIBUTION WIDTH 13.2 % (11.6-17.2); WHITE BLOOD COUNT 5.4 TH/MM3 (4.0-11.0)
[2017-04-25] MEDS: DOCUSATE SODIUM 50 MG/SENNA 8.6 MG TAB PO SCH (09:00)
[2017-04-25] MEDS: POTASSIUM CHLORIDE 10 MEQ CAP PO SCH (09:00)
[2017-04-25] MEDS: SODIUM CHLORIDE 0.9% FLUSH 10 ML FLUSH IV FLUSH SCH (09:00)
[2017-04-25 09:07] LABS: BICARBONATE 24.8 MEQ/L (21.0-32.0); CALCIUM 8.2 MG/DL (8.5-10.1); CREATININE 1.7 MG/DL (0.50-1.00)
[2017-04-25] MEDS: methylPREDNISolone SOD SUCC 40 MG/1 ML VIAL IV PUSH SCH (09:30)
[2017-04-25] MEDS: FAMOTIDINE 20 MG/2 ML VIAL IV PUSH SCH (09:30)
[2017-04-25] MEDS: FUROSEMIDE 40 MG/4 ML VIAL IV PUSH SCH (09:31)
[2017-04-25] MEDS: TRIMETHOBENZAMIDE INJ 200 MG/2 ML VIAL IM PRN (09:31)
[2017-04-25] MEDS ORDERED: LEVA500T33 PO (11:42)
--- NOTE | 2017-04-25 11:56 | HHI.PR ---
Subjective Remarks Patient seen and examined today for follow-up on recurrent pneumonia, bacteremia , congestive heart failure, partial small bowel obstruction. Patient had anticipated discharge yesterday if outpatient IV antibiotics could have been arranged. Apparently, those were not arranged. Patient remain in the hospital. Discussed with case management about arranging outpatient IV antibiotics. Patient will be discharged once arrangements made. Please refer to previous discharge summary Objective Vital Signs Date Time Temp Pulse Resp B/P (MAP) Pulse Ox O2 Delivery O2 Flow Rate FiO2 04/25/17 08:00 98.3 83 18 174/79 (110) 95 04/25/17 00:00 96.9 77 18 159/70 (99) 98 04/24/17 20:00 97.8 85 18 150/78 (102) 96 04/24/17 17:28 18 I/O 04/24/17 04/24/17 04/24/17 04/25/17 04/25/17 04/25/17 07:00 15:00 23:00 07:00 15:00 23:00 Intake Total 675 ml 100 ml 1290 ml 640 ml Output Total 850 ml 2150 ml Balance -175 ml 100 ml 1290 ml -1510 ml Intake Oral 640 ml 640 ml IV Total 675 ml 100 ml 650 ml Output Urine Total 850 ml 2150 ml # Voids 3 # Bowel Movements 0 0 Result Diagram: 04/25/17 0840 04/25/17 0840 Imaging Last Impressions Abdomen X-Ray 04/22/17 0600 Signed Impressions: Service Date/Time: Saturday, April 22, 2017 05:26 - CONCLUSION: Decreasing small bowel distention, currently mild. Joseph Luo MD Abdomen/Pelvis CT 04/20/17 [id number] Signed Impressions: Service Date/Time: Friday, April 21, 2017 00:12 - CONCLUSION: 1. Abnormality of the distal ileum with wall thickening and luminal narrowing suspicious for stricture. A diffuse small bowel dilatation proximal to this suggesting at least a partial small bowel obstruction. There is fluid and gas in the colon. 2. Postsurgical findings upper anterior abdominal wall. 3. Prominent scoliosis and degenerative findings of the lumbar spine. Hawk Osullivan MD Chest X-Ray 04/20/17 0000 Signed Impressions: Service Date/Time: March 23:14 - CONCLUSION: 1. Mild bilateral diffuse interstitial opacity indicating possible mild pulmonary edema. 2. Patchy atelectasis or consolidation in the mid left lung. 3. Chronic cardiac silhouette enlargement. Hawk Osullivan MD Chest CT 04/20/17 0000 Signed Impressions: Service Date/Time: Friday, April 21, 2017 00:12 - CONCLUSION: 1. Mild bilateral interstitial pulmonary opacity more prominent than on the comparison study likely representing ulnar edema. 2. Trace left pleural effusion. 3. Patchy lateral left upper lobe groundglass opacity indicating early consolidation or atelectasis. 4. 4 mm nodular density in the right middle lobe not seen on prior study. Hawk Osullivan MD Objective Remarks GENERAL: Well-developed, cachectic, in no acute distress. alert and orientated HEENT: Head is normocephalic without any lesions or masses noted. Facial features are symmetric. NECK: Supple without any masses. Trachea midline no deviation. No JVD, CARDIAC: Irregular rhythm, irregular rate.. S1/S2 are heard. 2/6 ejection murmur, no gallops or rubs. LUNGS: Clear to auscultation bilaterally. No wheeze, rhonchi or rales. No use of accessory muscles on inspiration or expiration. ABDOMEN: Soft, nontender. Nondistended. Bowel sounds heard in all 4 quadrants. No organomegaly or masses. Negative rebound, negative guarding EXTREMITIES: No edema, pulses are equal bilaterally. No cyanosis or clubbing NEUROLOGY: Mood and affect appear appropriate. Cranial nerves II through XII grossly intact. Moving extremities, speech is clear A/P Assessment and Plan Bacteremia Blood cultures with MRSA and staph aureus Repeat blood cultures are negative for 3 days Patient continued on vancomycin Infectious disease following the patient and recommended outpatient IV antibiotics. Case management consulted to arrange outpatient IV antibiotics. Form already filled out by infectious disease Partial small bowel obstruction Conservative management was performed Patient is eating and having bowel movements Gen. surgery was initially consulted and recommended conservative management and GI consultation GI evaluated patient and recommended prednisone with tapering dose in clinical improvement Community-acquired pneumonia with consolidation mid left lung. CXR reviewed showing mild bilateral diffuse interstitial opacity indicating possible mild pulmonary edema. Patchy atelectasis or consolidation in the mid left lung. Chronic cardiac silhouette enlargement. Levaquin, Flagyl IV continued. Acute on chronic systolic congestive heart failure CXR reviewed showing mild bilateral diffuse interstitial opacity indicating possible mild pulmonary edema. BNP was trended and appears to be improving at this time scheduled IV Lasix BID and potassium supplementation. Strict intake and output. Supportive care. Supplemental O2 to keep sats >92% as needed. Acute renal failure superimposed on chronic kidney disease stage III, improved Continue monitor renal function Avoid nephrotoxic medications, adjust medications as needed DVT Prophylaxis: Sequential compression devices Discharge Planning Discharge once arrangements made by case management. Please see previous discharge summary, patient was held due to IV antibiotic arrangement Daivd Vera Apr 25, 2017 11:56
[2017-04-25 12:00] VITALS: BP 166/80; PULSE 88; RESP 18; TEMP 98; O2SAT 95
[2017-04-25] MEDS ORDERED: PRED5PAK PO (12:05)
[2017-04-25] MEDS: ONDANSETRON HCL 4 MG/2 ML VIAL IVP PRN (13:27)
--- NOTE | 2017-04-26 11:03 | PQ ---
Physician Query Response Document PATIENT: ZENY BATRES : 1950 ADMIT DATE: 04/21/2017 1:31 AM DISCH DATE: 04/25/2017 4:31 PM RESPONDING PROVIDER #: [email or web address] QUERY TEXT: Sepsis Query Patients clinical picture exhibits symptoms from diagnostic studies potentially associated with sepsi s 1. agree Sepsis (SIRS due to an infection) POA 2. agree Sepsis but not POA 3. disagree Sepsis not present 4. A localized Infection only 5. Unable to determine - please explain. Depending on your selection above, please indicate one of the below if applicable: - Sepsis was present on Admission - Sepsis developed after admission The patient's Clinical Indicators include: adm w partial bowel obstruction N/V Apr 22, 2017 16:30 PER ID On presentation she had a fever 100.7. Chest x-ray showing some findings of pneumonia. 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
== END 2017-04-25 16:31 | disposition home health service (06) | DRG 871 ==
LOC: PHED 22:38 → PHEDA 04-21 01:31 → PH3A 04-21 02:37
PROVIDERS: ADMIT Hospitalist; ATTEND Hospitalist
DX: A41.9 Sepsis, unspecified organism (principal); I50.23 Acute on chronic systolic (congestive) heart failure; J69.0 Pneumonitis due to inhalation of food and vomit; N17.9 Acute kidney failure, unspecified; K56.600 Partial intestinal obstruction, unspecified as to cause; K50.90 Crohn's disease, unspecified, without complications; I48.91 Unspecified atrial fibrillation; M41.9 Scoliosis, unspecified; I13.0 Hypertensive heart and chronic kidney disease with heart failure and stage 1 through stage 4 chronic kidney disease, or unspecified chronic kidney disease; J98.11 Atelectasis; I73.00 Raynaud's syndrome without gangrene; E86.0 Dehydration; N18.3 Chronic kidney disease, stage 3 (moderate); I25.10 Atherosclerotic heart disease of native coronary artery without angina pectoris; I10 Essential (primary) hypertension; I25.2 Old myocardial infarction; H54.8 Legal blindness, as defined in USA; K21.9 Gastro-esophageal reflux disease without esophagitis; Z16.24 Resistance to multiple antibiotics; Z96.652 Presence of left artificial knee joint; Z79.01 Long term (current) use of anticoagulants; Z85.01 Personal history of malignant neoplasm of esophagus; Z87.891 Personal history of nicotine dependence; Z88.2 Allergy status to sulfonamides; Z89.612 Acquired absence of left leg above knee; Z92.21 Personal history of antineoplastic chemotherapy; Z92.3 Personal history of irradiation; Z95.5 Presence of coronary angioplasty implant and graft
CPT/HCPCS: 71010; 71250; 74000; 74176; 80048; 80053; 80202; 82550; 82552; 83605; 83690; 83880; 84484; 85007; 85025; 85027; 85610; 86403; 87040; 87147; 87186; 87205; 87804; 96361; 96374; J0456; J0696; J1940; J1956; J2270; J2405; J2920; J3250; J3370; J7030; J7050

== ENCOUNTER 2017-06-14 20:05 | Inpatient (IN) | payer OTHER, MEDICARE ==
[~2017-06-14] VITALS: Ht 152.4 cm; Wt 41.6 kg
[~2017-06-14 20:05] MED LIST changes: +LEVA500T33 PO; +LOMO2.5T PO; +OMEP20TA93 PO; -PANT40TA3 PO; +PRED5PAK PO
[2017-06-14] MEDS ORDERED: ONDANSETRON HCL 4 MG/2 ML VIAL IVP ONE (20:15)
[2017-06-14] MEDS ORDERED: SODIUM CHLOR 0.9% 1000 ML INJ 1,000 ML IV SCH (20:15)
[2017-06-14] MEDS ORDERED: SODIUM CHLORID 0.9% 500 ML INJ 500 ML IV ONE (20:15)
[2017-06-14] MEDS ORDERED: SODIUM CHLORIDE 0.9% FLUSH 10 ML FLUSH IV FLUSH PRN (20:15)
[2017-06-14 20:45] VITALS: BP 148/88; PULSE 85; RESP 16; TEMP 98.2
[2017-06-14 20:53] LABS: CHLORIDE 104 MEQ/L (98-107); SODIUM (NA) 136 MEQ/L (136-145)
[2017-06-14 20:57] LABS: ALBUMIN 2.8 GM/DL (3.4-5.0); CALCIUM 8.2 MG/DL (8.5-10.1)
[2017-06-14 20:58] LABS: BICARBONATE 19.4 MEQ/L (21.0-32.0); BLOOD UREA NITROGEN 33 MG/DL (7-18); GLUCOSE,RANDOM 96 MG/DL (74-106)
[2017-06-14 20:59] VITALS: O2SAT 96
[2017-06-14 20:59] LABS: AUTOMATED NEUTROPHIL # 5.1 TH/MM3 (1.8-7.7); BASOPHIL % 0.5 % (0.0-2.0); EOSINOPHIL % 0.2 % (0.0-4.0); INTERNATIONAL NORMALIZED RATIO 1.1 RATIO; LYMPH % 10.8 % (9.0-44.0); LYMPHOCYTE # 0.7 TH/MM3 (1.0-4.8); MEAN CELL VOLUME 96.7 FL (80.0-100.0); MEAN CORPUSCULAR HEMOGLOBIN 31.5 PG (27.0-34.0); MEAN CORPUSCULAR HGB CONC 32.6 % (32.0-36.0); MEAN PLATELET VOLUME 9.1 FL (7.0-11.0); MONO % 8.9 % (0.0-8.0); MONOCYTE # 0.6 TH/MM3 (0-0.9); NEUT % 79.6 % (16.0-70.0); PLATELET COUNT 257 TH/MM3 (150-450); RED BLOOD COUNT 4.45 MIL/MM3 (4.00-5.30); RED CELL DISTRIBUTION WIDTH 15.8 % (11.6-17.2); WHITE BLOOD COUNT 6.4 TH/MM3 (4.0-11.0)
[2017-06-14 21:00] LABS: ALT (GPT) 10 U/L (10-53); AST (GOT) 19 U/L (15-37)
[2017-06-14 21:01] LABS: GLOMERULAR FILTRATION RATE 25 ML/MIN (>89)
[2017-06-14 21:02] LABS: TOTAL BILIRUBIN ADULT 0.5 MG/DL (0.2-1.0); TOTAL PROTEIN 6.3 GM/DL (6.4-8.2)
[2017-06-14 21:03] LABS: ALKALINE PHOSPHATASE 218 U/L (45-117)
--- NOTE | 2017-06-14 21:07 | RADRPT ---
EXAM DATE/TIME: 06/14/2017 20:42 [facility] COMPARISON: CHEST SINGLE AP, April 20, 2017, 23:14. ABDOMEN KUB ONLY, April 22, 2017, 5:26. INDICATIONS : Chest discomfort, abdominal pain for 1 week MEDICAL HISTORY : Carcinoma, esophageal. Afib SURGICAL HISTORY : Appendectomy. Cardiac stent. Left chest port. ENCOUNTER: Initial ACUITY: 1 week PAIN SCORE: 0/10 LOCATION: Bilateral chest FINDINGS: The heart is enlarged. There is left-sided effusion and atelectasis. There is diffuse interstitial pr ominence. There is minimal effusion on the right. The effusion on the left has increased when compare d to previous study of 04/20/17. There is an Jxmhwx-[id number] in the position. CONCLUSION: 1. Increasing left basilar effusion and atelectasis. 2. There is fairly diffuse interstitial prominence. This is stable compared to previous exam suggesti ng chronic interstitial changes. 3. Mghoza-p-Mezp in good position. London Del Rosario MD on June 14, 2017 at 21:04 Board Certified Radiologist. This report was verified electronically.
--- NOTE | 2017-06-14 21:34 | RADRPT ---
EXAM DATE/TIME: 06/14/2017 21:09 [facility] COMPARISON: CT ABDOMEN & PELVIS W/O CONTRAST, April 21, 2017, 0:12. INDICATIONS : Abdominal pain with nausea. ORAL CONTRAST: No oral contrast ingested. RADIATION DOSE: 6.66 CTDIvol (mGy) MEDICAL HISTORY : Cardiovascular disease. Crohns disease. Hernia, hiatal. SURGICAL HISTORY : Cholecystectomy. Appendectomy.Hysterectomy.Hiatal hernia repair. ENCOUNTER: Initial ACUITY: 1 day PAIN SCALE: 5/10 LOCATION: abdomen TECHNIQUE: Volumetric scanning of the abdomen and pelvis was performed. Using automated exposure control and ad justment of the mA and/or kV according to patient size, radiation dose was kept as low as reasonably achievable to obtain optimal diagnostic quality images. DICOM format image data is available electro nically for review and comparison. FINDINGS: Imaging through the lung bases demonstrate cardiomegaly. There are moderate size bilateral effusions. The effusions are new compared to the previous dated 04/21/17. There is ascites within the upper abdomen. The appearance of the liver, spleen, pancreas, adrenal glands and right kidney are normal in appearan ce. The left kidney is atrophic. There is liquid stool throughout the colon suggesting diarrhea. There is no free air. There is ascites within the pelvis. The reproductive organs are intact. No iliac or inguinal adenopat hy is seen. The abdominal aorta is normal in caliber. No retroperitoneal adenopathy is seen. Note is made of mesh in the upper abdomen. The visualized bony structures demonstrate a severe rotatory scoliosis. CONCLUSION: 1. There are bilateral pleural effusions new when compared to prior exam. 2. There is ascites within the abdomen. This is new when compared to previous study as well. 3. There are multiple loops of fluid-filled, mildly distended small bowel and portions of the colon. There is gas and stool down to the rectum. 4. No free intraperitoneal air is identified. 5. Severe rotatory scoliosis of the drastic and lumbar spine. London Del Rosario MD on June 14, 2017 at 21:30 Board Certified Radiologist. This report was verified electronically.
[2017-06-14 21:41] LABS: BILIRUBIN, URINE NEG (NEG); BLOOD, URINE NEG (NEG); GLUCOSE,URINE NEG (NEG); KETONE, URINE NEG (NEG); NITRITE,URINE NEG (NEG); URINE LEUKOCYTE ESTERASE NEG (NEG)
[2017-06-14 21:52] LABS: URINE COLOR YELLOW (YELLW/STRAW)
[2017-06-14 21:53] LABS: SQUAMOUS EPITHELIAL CELL URINE 0-5 /hpf (0-5); WBC, URINE 0-2 /hpf (0-5)
[2017-06-14 21:58] VITALS: BP 142/75; PULSE 89; RESP 16; O2SAT 97
--- NOTE | 2017-06-14 22:03 | PD ---
HPI Chief Complaint: GI Complaint Time Seen by Provider: 20:15 Travel History International Travel<30 days: No Contact w/Intl Traveler<30days: No Traveled to known affect area: No History of Present Illness HPI 67-year-old female presents to the emergency department from home by EMS transport for evaluation of possible small bowel obstruction. Patient has prior history of small bowel obstruction. Patient has had nausea vomiting and no bowel movement over the past several days with worsening symptoms today. No fever or chills. No hematemesis or coffee-ground emesis. Patient has extensive past medical history that includes stage III esophageal adenocarcinoma diagnosed October 2015 status post radiation and chemotherapy as patient was determined at time of diagnosis to not be a surgical candidate. Patient had done well until recently patient underwent EGD that showed recurrence of her disease. Patient is under the care of Dr. Rea and it is not been determined whether or not patient will be a candidate for recurrent chemotherapy. Patient more recently has noted increasing abdominal girth and abdominal pain with nausea and vomiting. Patient's past medical history is significant for Crohn's disease, colitis, esophageal cancer, GERD, He's esophagitis, CAD [place] coronary stent CABG hypertension dyslipidemia atrial fibrillation seizure disorder Raynaud's disease and tobaccoism. Patient complains of severe nausea and has vomited stomach contents that has particulate matter consistent with food and somewhat feculent appearing contents. Admits to ongoing tobacco use no alcohol use. PFSH Past Medical History Narrative Medical Crohn's disease, colitis, esophageal cancer, GERD, He's esophagitis, CAD [place] coronary stent CABG hypertension dyslipidemia atrial fibrillation seizure disorder Raynaud's disease and tobaccoism; cardiac ablation cardiac window tonsillectomy tubal ligation colonoscopy cervical discectomy left AKA status post complication left knee surgery herniorrhaphy cholecystectomy hysterectomy; tobacco use; nursing notes reviewed Hx Anticoagulant Therapy: Yes (81 MG ASPIRIN, DAILY) Arthritis: No Asthma: No Atrial Fibrillation: Yes Autoimmune Disease: No Blood Disorders: No Heart Rhythm Problems: No Cancer: No Cardiovascular Problems: Yes (A-FIB, CARDIAC WINDOW, ABLATION) High Cholesterol: No Chemotherapy: No Chest Pain: No Congestive Heart Failure: No COPD: No Coronary Artery Disease: Yes Diabetes: No Diminished Hearing: No Endocrine: No Gastrointestinal Disorders: Yes (CHRON'S DISEASE, GERD) GERD: No Genitourinary: No Headaches: No Hepatitis: No Hiatal Hernia: Yes (REPAIRED) Heparin Induced Thrombocytopen: No Hypertension: Yes Immune Disorder: No Implanted Vascular Access Dvce: No Kidney Stones: Yes Musculoskeletal: Yes (CERVICAL DISCS BULDGING) Psychiatric: No Reproductive: No Respiratory: No Migraines: No Myocardial Infarction: Yes (199909/09/11) Radiation Therapy: No Renal Failure: No Seizures: Yes (RELATED TO ELECTROLYTE IMBALANCE WITH CHROHNS FLAREUP) Sickle Cell Disease: No Sleep Apnea: No Thyroid Disease: No Ulcer: No ?: Not Menopausal: Yes : 0 Past Surgical History Abdominal Surgery: Yes (FEEDING TUBE PLACED AND REMOVED, AND REMOVED NOV 2013, [facility]) AICD: No Appendectomy: Yes Arteriovenous Shunt: No Body Medical Devices: CARDIAC STENTS, PORT LEFT CHEST Cardiac Surgery: Yes (STENTS, PORT LEFT CHEST) Cholecystectomy: Yes (1994) Coronary Stent: Yes (LEFT KNEE REPLACEMENT, THEN ABOVE KNEE AMP) Ear Surgery: No Endocrine Surgery: No Eye Surgery: No Genitourinary Surgery: No Gynecologic Surgery: No Hysterectomy: Yes Insulin Pump: No Joint Replacement: No Neurologic Surgery: No Oral Surgery: Yes (TONSILS) Pacemaker: No Thoracic Surgery: No Tonsillectomy: Yes Other Surgery: Yes (stump left) Social History Alcohol Use: Yes (WEEKENDS) Tobacco Use: Yes (QUIT 01/2016) Substance Use: No Allergies-Medications (Allergen,Severity, Reaction): Coded Allergies: Sulfa (Sulfonamide Antibiotics) (Unverified Adverse Reaction, Severe, CRAMPS, 06/14/17) gi upset acetaminophen (Unverified Adverse Reaction, Severe, CONSTIPATION, 06/14/17) due to hx of chrons oxycodone (Unverified Adverse Reaction, Severe, CONSTIPATION, 06/14/17) due to hx of chrons Reported Meds & Prescriptions Reported Meds & Active Scripts Active Hydrocodone-Acetaminophen 10-325 mg Tab 1 Tab PO Q6H PRN Prednisone (21) 5 mg tab Dose Pack (Prednisone) 5 Mg Dspk 5 Mg PO DIRECTED Reported Omeprazole 20 Mg Tab 20 Mg PO DAILY Lomotil (Diphenoxylate-Atropine) 2.5-0.025 Mg Tab 1 Tab PO Q6H PRN Lidocaine Viscous Liq 2 % Liqd 5 Ml SWISH-SWAL DIRECTED PRN Lialda (Mesalamine) 1.2 Gm Tabdr 1.2 Gm PO BID Take with a meal. Carafate Liq (Sucralfate) 1 Gm/10 Ml Susp 1 Gm PO TID on empty stomach Metoprolol Tartrate 25 Mg Tab 25 Mg PO BID Simvastatin 40 Mg Tab 40 Mg PO HS Aspirin Children's (Aspirin) 81 Mg Chew 81 Mg CHEW DAILY Gabapentin 600 Mg Tab 600 Mg PO BID Tegretol (Carbamazepine) 200 Mg Tab 200 Mg PO BID Ranitidine (Ranitidine HCl) 150 Mg Tab 150 Mg PO DAILY Review of Systems Except as stated in HPI: all other systems reviewed are Neg General / Constitutional: No: Fever, Chills HENT: No: Congestion Cardiovascular: No: Chest Pain or Discomfort Respiratory: No: Shortness of Breath Gastrointestinal: Positive: Nausea, Vomiting, Abdominal Pain Genitourinary: Positive: Decreased Urinary Output Musculoskeletal: No: Pain Skin: No Rash Neurologic: Positive: Weakness Psychiatric: Positive: Anxiety Hematologic/Lymphatic: No: Lymph Node Enlargement Physical Exam Narrative GENERAL: Thin pale ill-appearing female in no acute respiratory distress SKIN: Warm and dry. HEAD: Normocephalic. EYES: No scleral icterus. No injection or drainage. NECK: Supple, trachea midline. No JVD or lymphadenopathy. CARDIOVASCULAR: Regular rate and rhythm without murmurs, gallops, or rubs. RESPIRATORY: Breath sounds equal bilaterally. No accessory muscle use. GASTROINTESTINAL: Abdomen firm, diffusely tender, mildly distended. MUSCULOSKELETAL: No cyanosis, or edema. Left AKA. BACK: Nontender without obvious deformity. No CVA tenderness. Data Data Last Documented VS Vital Signs Date Time Temp Pulse Resp B/P (MAP) Pulse Ox O2 Delivery O2 Flow Rate FiO2 06/14/17 21:58 89 16 142/75 (97) 97 Room Air 06/14/17 20:45 98.2 Orders Orders Complete Blood Count With Diff (06/14/17 20:15) Comprehensive Metabolic Panel (06/14/17 20:15) Lipase (06/14/17 20:15) Lactic Acid (06/14/17 20:15) Prothrombin Time / Inr (Pt) (06/14/17 20:15) Act Partial Throm Time (Ptt) (06/14/17 20:15) Urinalysis - C+S If Indicated (06/14/17 20:15) Iv Access Insert/Monitor (06/14/17 20:15) Ecg Monitoring (06/14/17 20:15) Oximetry (06/14/17 20:15) Ondansetron Inj (Zofran Inj) (06/14/17 20:15) Sodium Chlor 0.9% 1000 Ml Inj (Ns 1000 M (06/14/17 20:15) Sodium Chloride 0.9% Flush (Ns Flush) (06/14/17 20:15) Electrocardiogram (06/14/17 20:15) Chest, Single Ap (06/14/17 20:15) Sodium Chlorid 0.9% 500 Ml Inj (Ns 500 M (06/14/17 20:15) NPO (06/14/17 20:15) Ct Abd/Pel W/O Iv Contrast (06/14/17 ) Admit Order (Ed Use Only) (06/14/17 ) Manager Garage / Telemetry JOSE.Q8H (06/14/17 23:05) Diet Npo (06/15/17 Breakfast) Activity Bed Rest (06/14/17 23:05) Notify Dr: Other (06/14/17 23:05) Labs Laboratory Tests Test 06/14/17 20:28 06/14/17 20:30 06/14/17 21:33 Lactic Acid Level 1.4 mmol/L White Blood Count 6.4 TH/MM3 Red Blood Count 4.45 MIL/MM3 Hemoglobin 14.0 GM/DL Hematocrit 43.0 % Mean Corpuscular Volume 96.7 FL Mean Corpuscular Hemoglobin 31.5 PG Mean Corpuscular Hemoglobin Concent 32.6 % Red Cell Distribution Width 15.8 % Platelet Count 257 TH/MM3 Mean Platelet Volume 9.1 FL Neutrophils (%) (Auto) 79.6 % Lymphocytes (%) (Auto) 10.8 % Monocytes (%) (Auto) 8.9 % Eosinophils (%) (Auto) 0.2 % Basophils (%) (Auto) 0.5 % Neutrophils # (Auto) 5.1 TH/MM3 Lymphocytes # (Auto) 0.7 TH/MM3 Monocytes # (Auto) 0.6 TH/MM3 Eosinophils # (Auto) 0.0 TH/MM3 Basophils # (Auto) 0.0 TH/MM3 CBC Comment DIFF FINAL Differential Comment Prothrombin Time 11.0 SEC Prothromb Time International Ratio 1.1 RATIO Activated Partial Thromboplast Time 34.3 SEC Blood Urea Nitrogen 33 MG/DL Creatinine 2.00 MG/DL Random Glucose 96 MG/DL Total Protein 6.3 GM/DL Albumin 2.8 GM/DL Calcium Level 8.2 MG/DL Alkaline Phosphatase 218 U/L Aspartate Amino Transf (AST/SGOT) 19 U/L Alanine Aminotransferase (ALT/SGPT) 10 U/L Total Bilirubin 0.5 MG/DL Sodium Level 136 MEQ/L Potassium Level 3.6 MEQ/L Chloride Level 104 MEQ/L Carbon Dioxide Level 19.4 MEQ/L Anion Gap 13 MEQ/L Estimat Glomerular Filtration Rate 25 ML/MIN Lipase 69 U/L Urine Color YELLOW Urine Turbidity CLEAR Urine pH 6.0 Urine Specific [place] 1.022 Urine Protein 100 mg/dL Urine Glucose (UA) NEG mg/dL Urine Ketones NEG mg/dL Urine Occult Blood NEG Urine Nitrite NEG Urine Bilirubin NEG Urine Leukocyte Esterase NEG Urine WBC 0-2 /hpf Urine Squamous Epithelial Cells 0-5 /hpf Microscopic Urinalysis Comment CULT NOT INDICATED MDM Medical Decision Making Medical Screen Exam Complete: Yes Emergency Medical Condition: Yes Medical Record Reviewed: Yes Interpretation(s) EKG: Normal sinus rhythm with occasional PAC rate 90 incomplete right bundle branch block QS inferiorly and age-indeterminate anterior infarct changes no acute ST elevation Last Impressions Chest X-Ray 06/14/172014 Signed Impressions: Service Date/Time: Wednesday, June 14, 2017 20:42 - CONCLUSION: 1. Increasing left basilar effusion and atelectasis. 2. There is fairly diffuse interstitial prominence. This is stable compared to previous exam suggesting chronic interstitial changes. 3. [id number]-t-[id number] in good position. London Del Rosario MD Abdomen/Pelvis CT 06/14/17 0000 Signed Impressions: Service Date/Time: Wednesday, June 14, 2017 21:09 - CONCLUSION: 1. There are bilateral pleural effusions new when compared to prior exam. 2. There is ascites within the abdomen. This is new when compared to previous study as well. 3. There are multiple loops of fluid-filled, mildly distended small bowel and portions of the colon. There is gas and stool down to the rectum. 4. No free intraperitoneal air is identified. 5. Severe rotatory scoliosis of the drastic and lumbar spine. London Del Rosario MD CBC & BMP Diagram 06/14/17 20:30 Total Protein 6.3 L, Albumin 2.8 L, Calcium Level 8.2 L, Alkaline Phosphatase 218 H, Aspartate Amino Transf (AST/SGOT) 19, Alanine Aminotransferase (ALT/SGPT ) 10, Total Bilirubin 0.5 Vital Signs Date Time Temp Pulse Resp B/P (MAP) Pulse Ox O2 Delivery O2 Flow Rate FiO2 06/14/17 21:58 89 16 142/75 (97) 97 Room Air 06/14/17 20:59 96 Room Air 06/14/17 20:45 98.2 85 16 148/88 (108) Lactic acid: 1.4, not elevated Differential Diagnosis Abdominal pain, bowel obstruction, ileus, ascites, colitis, diverticulitis, peritonitis, malignancy, UTI, sepsis Narrative Course Patient placed on athletic monitor with continuous pulse oximetry Nndldw-z-Nudg access specimens collected and sent for resulting patient given IV fluid bolus along with maintenance IV fluids with prior history of chronic renal insufficiency/renal failure and CHF. Patient denies any chest pain or shortness of breath. Patient administered Zofran 4 mg IV and morphine 2 mg IV Patient resting comfortably waiting for imaging results CT abdomen pelvis reveals no evidence for bowel obstruction at this time dilated loops of bowel with fluid-filled intestine consistent with diarrheal illness and new onset ascites noted since 03/2017 as well as bilateral pleural effusions Patient is aware of plan for admission Patient's case discussed with [facility] service --will admit as OBS Physician Communication Physician Communication discussed with [facility] service for admission --OBS to Dr Fishman's service Diagnosis Primary Impression: Ileus Additional Impressions: Ascites Qualified Codes: R18.8 - Other ascites Adenocarcinoma of lower esophagus Renal failure (ARF), acute on chronic Admitting Information Admitting Physician Requests: Observation Bhargavi Whitaker MD Jun 14, 2017 22:03
[2017-06-14] MEDS ORDERED: NALOXONE HCL 0.4 MG/ML AMP IV PUSH PRN (23:15)
[2017-06-14] MEDS ORDERED: PROCHLORPERAZINE INJ 10 MG/2 ML VIAL IV PUSH PRN (23:15)
[2017-06-15] VITALS (7 sets, daily range): BP systolic 101–155; BP diastolic 53–88; PULSE 54–95; RESP 16–18; TEMP 96.9–98.8; O2SAT 92–98
[2017-06-15] MEDS: ONDANSETRON HCL 4 MG/2 ML VIAL IVP PRN (00:25)
[2017-06-15] MEDS ORDERED: PANT40TA3 PO (00:36)
[2017-06-15] MEDS ORDERED: APIX2.5T PO (00:36)
[2017-06-15 05:37] LABS: HEMATOCRIT 40.4 % (35.0-46.0); MEAN CELL VOLUME 97.6 FL (80.0-100.0); MEAN CORPUSCULAR HEMOGLOBIN 31.4 PG (27.0-34.0); MEAN CORPUSCULAR HGB CONC 32.2 % (32.0-36.0); MEAN PLATELET VOLUME 8.6 FL (7.0-11.0); PLATELET COUNT 235 TH/MM3 (150-450); RED BLOOD COUNT 4.14 MIL/MM3 (4.00-5.30); RED CELL DISTRIBUTION WIDTH 15.4 % (11.6-17.2); WHITE BLOOD COUNT 9.9 TH/MM3 (4.0-11.0)
[2017-06-15 05:57] LABS: BANDS 13 % (0-6); LYMPHOCYTES 2 % (9-44); MONOCYTES 5 % (0-8); NEUTROPHIL # MANUAL DIFF 9.2 TH/MM3 (1.8-7.7); POLYS (SEG NEUTROPHILS) 80 % (16-70)
[2017-06-15 06:10] LABS: BICARBONATE 18.2 MEQ/L (21.0-32.0); CALCIUM 7.6 MG/DL (8.5-10.1); CREATININE 1.8 MG/DL (0.50-1.00)
--- NOTE | 2017-06-15 08:11 | EKG ---
Date Performed: 06/14/2017 Time Performed: 21:42:35 PTAGE: 67 years EKG: Sinus rhythm WITH OCCASIONAL SUPRAVENTRICULAR PREMATURE COMPLEXES INCOMPLETE RIGHT BUNDLE BRANCH BLOCK POSSIBLE R IGHT VENTRICULAR HYPERTROPHY POSSIBLE ANTERIOR MYOCARDIAL INFARCTION INFERIOR MYOCARDIAL INFARCTION A BNORMAL ECG PREVIOUS TRACING : 04/24/2016 10.34 Since the prior tracing, there has been no significant park DOCTOR: Rachana Ugarte Interpretating Date/Time 06/15/2017 08:10:18
--- NOTE | 2017-06-15 11:23 | HHI.HP ---
[facility] Service [facility] Primary Care Physician Christopher Vasquez Do, MD Admission Diagnosis Ileus; ascites; esophageal cancer Diagnoses: Chief Complaint: Nausea vomiting not able to hold food or drink Travel History International Travel<30 Days: No Contact w/Intl Traveler <30 Da: No Traveled to Known Affected Are: No History of Present Illness 67 years old female with extensive past medical history including esophageal cancer, He's esophagitis, Crohn's disease and colitis, coronary artery disease with stenting and CABG, hypertension, hyperlipidemia, atrial fibrillation, seizure seizure disorder related to electrolyte imbalance due to Crohn's and diarrhea, presented to the ED complaining of worsening nausea and vomiting and no bowel movement for several days, the patient reported she was not able to hold any food and drink in her stomach., she denied significant abdominal pain, patient was diagnosed with esophageal cancer in October 2015 she is status post radiation and chemotherapy as she was determined at the time that she is not a candidate of surgical intervention, recent EGD of the patient showed recurrence of her cancerous disease. Patient denied any other complaints such as chest pain short of breath dysuria, hematochezia or melena Review of Systems All systems reviewed and was positive for what is mentioned in history of present illness otherwise negative Past Family Social History Past Medical History Crohn's disease, colitis, esophageal cancer, GERD, He's esophagitis, CAD [place] coronary stent CABG hypertension dyslipidemia atrial fibrillation seizure disorder Raynaud's disease and tobaccoism; cardiac ablation cardiac window tonsillectomy tubal ligation colonoscopy cervical discectomy left AKA status post complication left knee surgery herniorrhaphy cholecystectomy hysterectomy; tobacco use Past Surgical History As above Allergies: Coded Allergies: Sulfa (Sulfonamide Antibiotics) (Unverified Adverse Reaction, Severe, CRAMPS, 06/14/17) gi upset acetaminophen (Unverified Adverse Reaction, Severe, CONSTIPATION, 06/14/17) due to hx of chrons oxycodone (Unverified Adverse Reaction, Severe, CONSTIPATION, 06/14/17) due to hx of chrons Family History Review with the patient,not aware of significant medical history runs in his family Social History Denied tobacco alcohol or illicit drug abuse Physical Exam Vital Signs Vital Signs Date Time Temp Pulse Resp B/P (MAP) Pulse Ox O2 Delivery O2 Flow Rate FiO2 06/15/17 08:45 98.6 95 18 105/54 (71) 97 06/15/17 08:17 06/15/17 06:55 94 16 101/53 (69) 98 Room Air 06/15/17 03:00 98.8 85 16 155/77 (103) 97 Room Air 06/15/17 00:39 98.5 84 16 147/88 (107) 96 Room Air 06/14/17 21:58 89 16 142/75 (97) 97 Room Air 06/14/17 20:59 96 Room Air 06/14/17 20:45 98.2 85 16 148/88 (108) Physical Exam GENERAL: This is a well-nourished, well-developed patient, in no apparent distress. SKIN: No rashes, ecchymoses or lesions. Cool and dry. HEAD: Atraumatic. Normocephalic. No temporal or scalp tenderness. EYES: Pupils equal round and reactive. Extraocular motions intact. No scleral icterus. No injection or drainage. ENT: Nose without bleeding, purulent drainage or septal hematoma. Throat without erythema, tonsillar hypertrophy or exudate. Uvula midline. Airway patent. NECK: Trachea midline. No JVD or lymphadenopathy. Supple, nontender, no meningeal signs. CARDIOVASCULAR: Regular rate and rhythm without murmurs, gallops, or rubs. RESPIRATORY: Clear to auscultation. Breath sounds equal bilaterally. No wheezes , rales, or rhonchi. GASTROINTESTINAL: Abdomen soft, non-tender, nondistended. No hepato-splenomegaly , or palpable masses. No guarding. diminished bowel sounds MUSCULOSKELETAL: Right lower extremitie without clubbing, cyanosis, or edema. Left AKA NEUROLOGICAL: Awake and alert. Cranial nerves II through XII intact. Motor and sensory grossly within normal limits. Five out of 5 muscle strength in all muscle groups. Normal speech. Laboratory Laboratory Tests Test 06/14/17 20:28 06/14/17 20:30 06/14/17 21:33 06/15/17 05:28 Lactic Acid Level 1.4 White Blood Count 6.4 9.9 Red Blood Count 4.45 4.14 Hemoglobin 14.0 13.0 Hematocrit 43.0 40.4 Mean Corpuscular Volume 96.7 97.6 Mean Corpuscular Hemoglobin 31.5 31.4 Mean Corpuscular Hemoglobin Concent 32.6 32.2 Red Cell Distribution Width 15.8 15.4 Platelet Count 257 235 Mean Platelet Volume 9.1 8.6 Neutrophils (%) (Auto) 79.6 Lymphocytes (%) (Auto) 10.8 Monocytes (%) (Auto) 8.9 Eosinophils (%) (Auto) 0.2 Basophils (%) (Auto) 0.5 Neutrophils # (Auto) 5.1 Lymphocytes # (Auto) 0.7 Monocytes # (Auto) 0.6 Eosinophils # (Auto) 0.0 Basophils # (Auto) 0.0 CBC Comment DIFF FINAL AUTO DIFF Differential Comment FINAL DIFF MANUAL Prothrombin Time 11.0 Prothromb Time International Ratio 1.1 Activated Partial Thromboplast Time 34.3 Blood Urea Nitrogen 33 30 Creatinine 2.00 1.80 Random Glucose 96 86 Total Protein 6.3 Albumin 2.8 Calcium Level 8.2 7.6 Alkaline Phosphatase 218 Aspartate Amino Transf (AST/SGOT) 19 Alanine Aminotransferase (ALT/SGPT) 10 Total Bilirubin 0.5 Sodium Level 136 137 Potassium Level 3.6 3.4 Chloride Level 104 108 Carbon Dioxide Level 19.4 18.2 Anion Gap 13 11 Estimat Glomerular Filtration Rate 25 28 Lipase 69 Urine Color YELLOW Urine Turbidity CLEAR Urine pH 6.0 Urine Specific [place] 1.022 Urine Protein 100 Urine Glucose (UA) NEG Urine Ketones NEG Urine Occult Blood NEG Urine Nitrite NEG Urine Bilirubin NEG Urine Leukocyte Esterase NEG Urine WBC 0-2 Urine Squamous Epithelial Cells 0-5 Microscopic Urinalysis Comment CULT NOT INDICATED Differential Total Cells Counted 100 Neutrophils % (Manual) 80 Band Neutrophils % 13 Lymphocytes % 2 Monocytes % 5 Neutrophils # (Manual) 9.2 Platelet Estimate NORMAL Platelet Morphology Comment NORMAL Red Cell Morphology Comment NORMAL Result Diagram: 06/15/1752706/15/17527 Imaging EKG showed OCCASIONAL SUPRAVENTRICULAR PREMATURE COMPLEXES INCOMPLETE RIGHT BUNDLE BRANCH BLOCK POSSIBLE RIGHT VENTRICULAR HYPERTROPHY POSSIBLE ANTERIOR MYOCARDIAL INFARCTION INFERIOR MYOCARDIAL INFARCTION ABNORMAL ECG Caprini VTE Risk Assessment Caprini VTE Risk Assessment: Mod/High Risk (score >= 2) Caprini Risk Assessment Model Point Value = 1 Point Value = 2 Point Value = 3 Point Value = 5 Age 41-60 Minor surgery BMI > 25 kg/m2 Swollen legs Varicose veins or History of unexplained or recurrent spontaneous Oral contraceptives or hormone replacement Sepsis (< 1 month) Serious lung disease, including pneumonia (< 1 month) Abnormal pulmonary function Acute myocardial infarction Congestive heart failure (< 1 month) History of inflammatory bowel disease Medical patient at bed rest Age 61-74 Arthroscopic surgery Major open surgery (> 45 min) Laparoscopic surgery (> 45 min) Malignancy Confined to bed (> 72 hours) Immobilizing plaster cast Central venous access Age >= 75 History of VTE Family history of VTE Factor V Leiden Prothrombin [id number] Lupus anticoagulant Anticardiolipin antibodies Elevated serum homocysteine Heparin-induced thrombocytopenia Other congenital or acquired thrombophilia Stroke (< 1 month) Elective arthroplasty Hip, pelvis, or leg fracture Acute spinal cord injury (< 1 month) Prophylaxis Regimen Total Risk Factor Score Risk Level Prophylaxis Regimen 0-1 Low Early ambulation 2 Moderate Order ONE of the following: *Sequential Compression Device (SCD) *Heparin 5000 units SQ BID 3-4 Higher Order ONE of the following medications: *Heparin 5000 units SQ TID *Enoxaparin/Lovenox 40 mg SQ daily (WT < 150 kg, CrCl > 30 mL/min) *Enoxaparin/Lovenox 30 mg SQ daily (WT < 150 kg, CrCl > 10-29 mL/min) *Enoxaparin/Lovenox 30 mg SQ BID (WT < 150 kg, CrCl > 30 mL/min) AND/OR *Sequential Compression Device (SCD) 5 or more Highest Order ONE of the following medications: *Heparin 5000 units SQ TID (Preferred with Epidurals) *Enoxaparin/Lovenox 40 mg SQ daily (WT < 150 kg, CrCl > 30 mL/min) *Enoxaparin/Lovenox 30 mg SQ daily (WT < 150 kg, CrCl > 10-29 mL/min) *Enoxaparin/Lovenox 30 mg SQ BID (WT < 150 kg, CrCl > 30 mL/min) AND *Sequential Compression Device (SCD) Assessment and Plan Assessment and Plan -Small bowel obstruction/ileus and ascites showed on CT scan of the abdomen which was reviewed by me -Nausea vomiting due to above -COLBY with creatinine of 2 -Increased alkaline phosphatase 218 -Metabolic acidosis with bicarb 18, normal lactic acid level 1.4 -H/O of Crohn's disease colitis esophageal cancer, GERD, He's esophagitis, coronary artery disease status post stenting and CABG, hypertension hyperlipidemia, atrial fibrillation, seizure disorder, Raynaud's disease, left AKA Plan: Admit for observation N.p.o. except meds, antiemetics, Reglan IV fluids gently D5 half-normal saline with KCl at 42 cc/h, watch out for a volume overload, last 2D echo of the patient showed normal EF 50-55% with possible LVH Consult GI for further recommendation Monitor improving clinical symptoms Continue home meds for now since nausea vomiting and symptoms are alleviated now , may need to switch some of them to IV Discussed Condition With Patient Radha Nelson MD Jun 15, 2017 11:23
[2017-06-15] MEDS: SODIUM CHLORIDE 0.9% FLUSH 10 ML FLUSH IV FLUSH SCH ×2 (14:55→20:46)
[2017-06-15] MEDS: METOCLOPRAMIDE HCL 10 MG/2 ML VIAL IV PUSH SCH ×2 (14:56→20:48)
[2017-06-15] MEDS: SUCRALFATE 1 GM/10 ML CUP PO SCH ×2 (14:56→18:00)
[2017-06-15] MEDS: D5-1/2 NS + KCL 20 MEQ INJ 1,000 ML IV SCH (14:56)
[2017-06-15] MEDS: MORPHINE SULFATE 2 MG/ML INJ IV PUSH PRN ×2 (14:58→21:46)
--- NOTE | 2017-06-15 19:07 | PD.CONS ---
HPI History of Present Illness This is a 67 year old unfortunate female who is known to have stage III esophageal cancer. She is status post chemo and radiation treatment. Recent EGD showed recurrence of esophageal cancer. She is being evaluated for possible repeat treatment with chemo and radiation therapy. Patient was brought to the hospital via EMS with symptoms of nausea vomiting associated with obstipation. CAT scan done in the ER showed presence of new onset bilateral pleural effusion new onset ascites multiple fluid-filled mildly dilated. Stools and gas seen in the rectum. Since admission to the hospital patient reports improvement in symptoms. She has had a bowel movement. Abdominal distention is better. And she also reports improvement in symptoms of nausea and vomiting. On direct questioning she gives history of dysphagia however denies any hematemesis and melena hematochezia jaundice pruritus diarrhea. PFSH Past Medical History Crohn's disease, colitis, esophageal cancer, GERD, He's esophagitis,. She is status post treatment with chemo and radiation therapy CAD [place] coronary stent CABG hypertension dyslipidemia atrial fibrillation seizure disorder Raynaud's disease and tobaccoism; cardiac ablation cardiac window tonsillectomy tubal ligation colonoscopy cervical discectomy left AKA status post complication left knee surgery herniorrhaphy cholecystectomy hysterectomy; tobacco use. Patient is also status post colon resection for colonic perforation. Past Surgical History As above Coded Allergies: Sulfa (Sulfonamide Antibiotics) (Unverified Adverse Reaction, Severe, CRAMPS, 06/14/17) gi upset acetaminophen (Unverified Adverse Reaction, Severe, CONSTIPATION, 06/14/17) due to hx of chrons oxycodone (Unverified Adverse Reaction, Severe, CONSTIPATION, 06/14/17) due to hx of chrons Medications Current medication list reviewed and MAR Family History Denies any history of esophageal stomach or colon cancer in any family member. Social History Denied alcohol or illicit drug abuse. History of chronic smoking which she quit 3 months ago. Review of Systems Gastrointestinal: COMPLAINS OF: Constipation, Nausea, Vomiting, Difficulty Swallowing, DENIES: Abdominal pain, Black stools, Bloody stools, Diarrhea, Anorexia, Odynophagia, Swelling of Abdomen, Heartburn, Hematemesis GI Exam Vitals I&O Vital Signs Date Time Temp Pulse Resp B/P (MAP) Pulse Ox O2 Delivery O2 Flow Rate FiO2 06/15/17 16:33 97.3 54 18 127/64 (85) 95 06/15/17 15:05 18 06/15/17 12:00 98.8 92 16 104/58 (73) 97 06/15/17 08:45 98.6 95 18 105/54 (71) 97 06/15/17 08:17 06/15/17 06:55 94 16 101/53 (69) 98 Room Air 06/15/17 03:00 98.8 85 16 155/77 (103) 97 Room Air 06/15/17 00:39 98.5 84 16 147/88 (107) 96 Room Air 06/14/17 21:58 89 16 142/75 (97) 97 Room Air 06/14/17 20:59 96 Room Air 06/14/17 20:45 98.2 85 16 148/88 (108) I/O 06/14/17 06/14/17 06/14/17 06/15/17 06/15/17 06/15/17 06:59 14:59 22:59 06:59 14:59 22:59 Intake Total 500 ml 1000 ml 0 ml Output Total 800 ml Balance -300 ml 1000 ml 0 ml Intake Oral 0 ml IV Total 500 ml 1000 ml Output Emesis 800 ml # Voids 1 # Bowel Movements 2 Laboratory Test 06/14/17 20:28 06/14/17 20:30 06/14/17 21:33 06/15/17 05:28 Lactic Acid Level 1.4 mmol/L White Blood Count 6.4 TH/MM3 9.9 TH/MM3 Red Blood Count 4.45 MIL/MM3 4.14 MIL/MM3 Hemoglobin 14.0 GM/DL 13.0 GM/DL Hematocrit 43.0 % 40.4 % Mean Corpuscular Volume 96.7 FL 97.6 FL Mean Corpuscular Hemoglobin 31.5 PG 31.4 PG Mean Corpuscular Hemoglobin Concent 32.6 % 32.2 % Red Cell Distribution Width 15.8 % 15.4 % Platelet Count 257 TH/MM3 235 TH/MM3 Mean Platelet Volume 9.1 FL 8.6 FL Neutrophils (%) (Auto) 79.6 % Lymphocytes (%) (Auto) 10.8 % Monocytes (%) (Auto) 8.9 % Eosinophils (%) (Auto) 0.2 % Basophils (%) (Auto) 0.5 % Neutrophils # (Auto) 5.1 TH/MM3 Lymphocytes # (Auto) 0.7 TH/MM3 Monocytes # (Auto) 0.6 TH/MM3 Eosinophils # (Auto) 0.0 TH/MM3 Basophils # (Auto) 0.0 TH/MM3 CBC Comment DIFF FINAL AUTO DIFF Differential Comment FINAL DIFF MANUAL Prothrombin Time 11.0 SEC Prothromb Time International Ratio 1.1 RATIO Activated Partial Thromboplast Time 34.3 SEC Blood Urea Nitrogen 33 MG/DL 30 MG/DL Creatinine 2.00 MG/DL 1.80 MG/DL Random Glucose 96 MG/DL 86 MG/DL Total Protein 6.3 GM/DL Albumin 2.8 GM/DL Calcium Level 8.2 MG/DL 7.6 MG/DL Alkaline Phosphatase 218 U/L Aspartate Amino Transf (AST/SGOT) 19 U/L Alanine Aminotransferase (ALT/SGPT) 10 U/L Total Bilirubin 0.5 MG/DL Sodium Level 136 MEQ/L 137 MEQ/L Potassium Level 3.6 MEQ/L 3.4 MEQ/L Chloride Level 104 MEQ/L 108 MEQ/L Carbon Dioxide Level 19.4 MEQ/L 18.2 MEQ/L Anion Gap 13 MEQ/L 11 MEQ/L Estimat Glomerular Filtration Rate 25 ML/MIN 28 ML/MIN Lipase 69 U/L Urine Color YELLOW Urine Turbidity CLEAR Urine pH 6.0 Urine Specific [place] 1.022 Urine Protein 100 mg/dL Urine Glucose (UA) NEG mg/dL Urine Ketones NEG mg/dL Urine Occult Blood NEG Urine Nitrite NEG Urine Bilirubin NEG Urine Leukocyte Esterase NEG Urine WBC 0-2 /hpf Urine Squamous Epithelial Cells 0-5 /hpf Microscopic Urinalysis Comment CULT NOT INDICATED Differential Total Cells Counted 100 Neutrophils % (Manual) 80 % Band Neutrophils % 13 % Lymphocytes % 2 % Monocytes % 5 % Neutrophils # (Manual) 9.2 TH/MM3 Platelet Estimate NORMAL Platelet Morphology Comment NORMAL Red Cell Morphology Comment NORMAL Physical Examination HEENT: Pupils round and reactive to light; normocephalic; atraumatic; no jaundice. Throat is clear. NECK: Neck is supple, no JVD, no lymphadenopathy. CHEST: Scattered rales and rhonchi heard at both bases. CARDIAC: Regular rate and rhythm with no murmur gallop or rubs. ABDOMEN: Soft, nondistended, nontender; no hepatosplenomegaly;. No other masses felt. Bowel sounds are present in all four quadrants. EXTREMITIES: No clubbing, cyanosis, or edema. SKIN: Normal; no rash; no jaundice. [employer]: No focal deficits; alert and oriented times three. Assessment and Plan Assessment: (1) Malignant ascites ICD Codes: R18.0 - Malignant ascites (2) Ileus ICD Codes: K56.7 - Ileus, unspecified (3) Esophageal cancer, stage IIIA ICD Codes: C15.9 - Malignant neoplasm of esophagus, unspecified (4) Ascites ICD Codes: R18.8 - Other ascites Status: Acute (5) ulcerative colitis Status: Acute Plan 1. Metastatic adenocarcinoma of the esophagus 2. New onset ascites and pleural effusion, likely due to metastatic spread. Hypoalbuminemia contributory factor. 3. Patient current symptoms are likely due to ileus most likely related to pain medications and metastatic esophageal cancer 4. No need for any endoscopic intervention 5. Continue treatment with Reglan and , MiraLAX. Use enemas as needed for obstipation 6. Monitor electrolytes, correct this electrolyte anemia Problem Qualifiers (1) Ascites: Qualified Codes: R18.8 - Other ascites Natalio Guevara MD Jun 15, 2017 19:07
[2017-06-15] MEDS: PRAVASTATIN SOD 40 MG TAB PO SCH (20:47)
[2017-06-15] MEDS: GABAPENTIN 300 MG CAP PO SCH (20:47)
[2017-06-15] MEDS: APIXABAN 2.5 MG TABLET PO SCH (20:47)
[2017-06-15] MEDS: METOPROLOL TARTRATE 25 MG TAB PO SCH (20:47)
[2017-06-15] MEDS: carBAMazepine 200 MG TAB PO SCH (20:48)
[2017-06-15] MEDS ORDERED: LIALDA 1.2 GM PO SCH (21:00)
[2017-06-16] VITALS: BP 108/58; PULSE 82; RESP 18; TEMP 97.1; O2SAT 93
[2017-06-16 04:00] VITALS: BP 101/61; PULSE 88; RESP 18; TEMP 96.5; O2SAT 96
[2017-06-16] MEDS: METOCLOPRAMIDE HCL 10 MG/2 ML VIAL IV PUSH SCH ×3 (06:15→21:07)
[2017-06-16] MEDS: MORPHINE SULFATE 2 MG/ML INJ IV PUSH PRN ×5 (06:17→22:12)
[2017-06-16] MEDS ORDERED: SERT25TA83 PO (08:00)
[2017-06-16] MEDS ORDERED: PILL SPLITTER OTHER PRN (08:30)
[2017-06-16 09:00] VITALS: BP 132/77; PULSE 85; TEMP 96.2
[2017-06-16] MEDS: APIXABAN 2.5 MG TABLET PO SCH ×2 (09:00→09:59)
[2017-06-16] MEDS ORDERED: POTASSIUM CHLORIDE 10 MEQ CONTROLLED RELEASE TAB PO ONE (09:00)
--- NOTE | 2017-06-16 09:27 | RADRPT ---
EXAM DATE/TIME: 06/16/2017 08:41 [facility] COMPARISON: US CHEST LEFT, July 27, 2016, 15:03. INDICATIONS : Pleural effusion/Shortness of breath. MEDICAL HISTORY : Blindness. [place]. Afib. GERD. Crohn's disease. cad. SURGICAL HISTORY : Left leg amputation. Hiatel hernia. Feeding tube placed and removal. Appendectomy. Cardiac stent. Lef t chest port. Left knee replacement. Hysterectomy. Tonsillectomy. ENCOUNTER: Subsequent ACUITY: 7-11 months PAIN SCORE: 3/10 LOCATION: Left chest MEASUREMENTS: SKIN TO PARIETAL PLEURA: 0.8 cm SKIN TO MAX SAFE DEPTH: 3.3 cm ESTIMATED FLUID VOLUME: 291.1 cc FLUID COMPOSITION: simple FINDINGS: Pleural effusion as above. A david was placed on the skin surface superficial to the pleural fluid col lection. CONCLUSION: Percutaneous marking of large left pleural effusion was made. Surinder Youngblood MD on June 16, 2017 at 9:25 Board Certified Radiologist. This report was verified electronically.
[2017-06-16] MEDS: SODIUM CHLORIDE 0.9% FLUSH 10 ML FLUSH IV FLUSH SCH ×2 (09:54→20:56)
[2017-06-16] MEDS: SUCRALFATE 1 GM/10 ML CUP PO SCH ×3 (09:57→19:08)
[2017-06-16] MEDS: GABAPENTIN 300 MG CAP PO SCH ×2 (09:58→21:05)
[2017-06-16] MEDS: SERTRALINE HCL 50 MG TAB PO SCH (09:59)
[2017-06-16] MEDS: FAMOTIDINE 20 MG TAB PO SCH (09:59)
[2017-06-16] MEDS: predniSONE 5 MG TAB PO SCH (09:59)
[2017-06-16] MEDS: ASPIRIN 81 MG CHEW TAB CHEW SCH (10:00)
[2017-06-16] MEDS: carBAMazepine 200 MG TAB PO SCH ×2 (10:00→21:05)
--- NOTE | 2017-06-16 10:18 | HHI.PR ---
Subjective Remarks Follow-up nausea and vomiting. Patient seen and examined, lying in bed with continued mild abdominal pain. Denies any nausea or vomiting greater than 24 hours now. Positive bowel movement yesterday. Gastroenterology did see patient , continue bowel regimen. Patient does have left pleural effusion, consult placed to ultrasound for therapeutic drainage. Objective Vitals Vital Signs Date Time Temp Pulse Resp B/P (MAP) Pulse Ox O2 Delivery O2 Flow Rate FiO2 06/16/17 04:00 96.5 88 18 101/61 (74) 96 06/16/17 00:00 97.1 82 18 108/58 (75) 93 06/15/17 20:00 96.9 86 18 143/73 (96) 92 06/15/17 16:33 97.3 54 18 127/64 (85) 95 06/15/17 15:05 18 06/15/17 12:00 98.8 92 16 104/58 (73) 97 I/O 06/15/17 06/15/17 06/15/17 06/16/17 06/16/17 06/16/17 07:00 15:00 23:00 07:00 15:00 23:00 Intake Total 1000 ml 0 ml Output Total 200 ml Balance 1000 ml 0 ml -200 ml Intake Oral 0 ml IV Total 1000 ml Output Urine Total 200 ml # Voids 1 # Bowel Movements 2 1 Result Diagram: 06/15/17 0528 06/15/17 0528 Imaging Last Impressions Chest Ultrasound 06/16/17 0000 Signed Impressions: Service Date/Time: Friday, June 16, 2017 08:41 - CONCLUSION: Percutaneous marking of large left pleural effusion was made. Surinder Youngblood MD Chest X-Ray 06/14/172014 Signed Impressions: Service Date/Time: Wednesday, June 14, 2017 20:42 - CONCLUSION: 1. Increasing left basilar effusion and atelectasis. 2. There is fairly diffuse interstitial prominence. This is stable compared to previous exam suggesting chronic interstitial changes. 3. Ieelam-g-Hiab in good position. London Del Rosario MD Abdomen/Pelvis CT 06/14/17 0000 Signed Impressions: Service Date/Time: Wednesday, June 14, 2017 21:09 - CONCLUSION: 1. There are bilateral pleural effusions new when compared to prior exam. 2. There is ascites within the abdomen. This is new when compared to previous study as well. 3. There are multiple loops of fluid-filled, mildly distended small bowel and portions of the colon. There is gas and stool down to the rectum. 4. No free intraperitoneal air is identified. 5. Severe rotatory scoliosis of the drastic and lumbar spine. London Del Rosario MD Objective Remarks GENERAL: Well-developed, thin female patient in NAD. Legally blind SKIN: Warm and dry. No rash. Left chest port HEAD: Normocephalic. Atraumatic. EYES: Pupils equal and round. No scleral icterus. No injection or drainage. ENT: No nasal bleeding or discharge. Mucous membranes pink and moist. NECK: Supple. Trachea midline. CARDIOVASCULAR: Regular rate and rhythm. S1, S2 noted. No murmur appreciated. RESPIRATORY: No accessory muscle use. Clear to auscultation. Breath sounds equal bilaterally. GASTROINTESTINAL: Abdomen soft, non-tender, nondistended. Normoactive bowel sounds x4. MUSCULOSKELETAL: No obvious deformities. Extremities without clubbing, cyanosis , or edema. NEUROLOGICAL: Awake and alert. No obvious cranial nerve deficits. Motor grossly within normal limits. 5/5 muscle strength in bilateral upper and lower extremities. Normal speech. A/P Assessment and Plan 67 years old female with extensive past medical history including esophageal cancer, He's esophagitis, Crohn's disease and colitis, coronary artery disease with stenting and CABG, hypertension, hyperlipidemia, atrial fibrillation, seizure seizure disorder related to electrolyte imbalance due to Crohn's and diarrhea, presented to the ED complaining of worsening nausea and vomiting and no bowel movement for several days, the patient reported she was not able to hold any food and drink in her stomach. Small bowel obstruction versus ileus and ascites History of Crohn's disease History of colitis and esophageal cancer History of He's esophagus Abdominal/pelvis CT reviewed showing bilateral pleural effusions with ascites. Mildly distended small bowel and portions of the colon. Gastroenterology consult appreciated, most likely ileus related to pain medications and metastatic esophageal cancer. No need for any endoscopic intervention. Continue Reglan and bowel regimen. Nausea and vomiting have improved. Will attempt clear liquid diet. Monitor for toleration. Advance as able. Continue gentle IV hydration. Compazine and Zofran available as needed for nausea. Control pain, IV narcotics available as needed per pain scale. Supportive care. Left-sided basilar pleural effusion Chest x-ray reviewed showing increasing left basilar effusion and atelectasis. Ultrasound of the chest completed, plan for ultrasound-guided thoracentesis tomorrow a.m. Hold Eliquis. Supplemental O2 as needed, oxygen saturations 96% on room air. History of CAD with [place] and stent placement History of hypertension and hyperlipidemia History of CABG Continue home medications. Including aspirin, metoprolol and pravastatin. Eliquis on hold for planned thoracentesis tomorrow. DVT prophylaxis: SCDs. Patient has been on Eliquis. Will place on hold for planned thoracentesis tomorrow morning. Madison Tom Jun 16, 2017 10:18
[2017-06-16] MEDS: METOPROLOL TARTRATE 25 MG TAB PO SCH ×2 (10:26→21:05)
[2017-06-16] MEDS: PANTOPRAZOLE SOD 20 MG DELAYED RELEASE TAB PO SCH (10:26)
[2017-06-16] MEDS: D5-1/2 NS + KCL 20 MEQ INJ 1,000 ML IV SCH (10:35)
[2017-06-16 12:00] VITALS: BP 138/71; PULSE 80; RESP 18; TEMP 96.7; O2SAT 93
[2017-06-16 16:00] VITALS: BP 126/83; PULSE 74; RESP 16; TEMP 98.1; O2SAT 93
[2017-06-16] MEDS ORDERED: LORazepam 0.5 MG TAB PO PRN (18:15)
[2017-06-16 20:00] VITALS: BP 150/89; PULSE 78; PULSE 80; RESP 16; TEMP 97.7; O2SAT 94
[2017-06-16] MEDS: PRAVASTATIN SOD 40 MG TAB PO SCH (21:05)
[2017-06-17] VITALS (7 sets, daily range): BP systolic 167–192; BP diastolic 80–97; PULSE 76–88; RESP 18–20; TEMP 97.2–98.5; O2SAT 95–97
[2017-06-17] MEDS: MORPHINE SULFATE 2 MG/ML INJ IV PUSH PRN ×2 (03:54→08:58)
[2017-06-17] MEDS: METOCLOPRAMIDE HCL 10 MG/2 ML VIAL IV PUSH SCH ×3 (05:52→21:50)
[2017-06-17 08:07] LABS: BICARBONATE 18.5 MEQ/L (21.0-32.0); CALCIUM 8.1 MG/DL (8.5-10.1); CREATININE 1.7 MG/DL (0.50-1.00)
[2017-06-17] MEDS: ASPIRIN 81 MG CHEW TAB CHEW SCH ×2 (08:54→09:00)
[2017-06-17] MEDS: carBAMazepine 200 MG TAB PO SCH ×2 (08:55→21:50)
[2017-06-17] MEDS: SERTRALINE HCL 50 MG TAB PO SCH (08:56)
[2017-06-17] MEDS: predniSONE 5 MG TAB PO SCH (08:56)
[2017-06-17] MEDS: PANTOPRAZOLE SOD 20 MG DELAYED RELEASE TAB PO SCH (08:56)
[2017-06-17] MEDS: GABAPENTIN 300 MG CAP PO SCH ×2 (08:56→21:50)
[2017-06-17] MEDS: FAMOTIDINE 20 MG TAB PO SCH (08:56)
[2017-06-17] MEDS: METOPROLOL TARTRATE 25 MG TAB PO SCH ×2 (08:56→21:50)
[2017-06-17] MEDS: SUCRALFATE 1 GM/10 ML CUP PO SCH ×3 (08:57→17:10)
[2017-06-17] MEDS: SODIUM CHLORIDE 0.9% FLUSH 10 ML FLUSH IV FLUSH SCH ×2 (09:00→21:50)
--- NOTE | 2017-06-17 13:58 | PD.RAD ---
Post US Procedure Prog Note Pre Procedure Diagnosis: (1) Pleural effusion Post Procedure Diagnosis: (1) Pleural effusion Procedure Date: Jun 17, 2017 Supervising Radiologist: Joseph Bae Proceduralist/Assist: Annamaria Hoang RDMS Anesthesia: Local Plan of Activity Patient to Unit: Nursing Unit Patient Condition: Fair See PACS Report for procedural detail/treatment Drainage Procedure Procedure 1 Imaging Guidance: Ultrasound Side: Left Procedure Type: Thoracentesis Serbian: 6 Drainage: Suction Fluid Description: Joseph Lira MD Jun 17, 2017 13:58
--- NOTE | 2017-06-17 14:16 | RADRPT ---
EXAM DATE/TIME: 06/17/2017 13:59 [facility] COMPARISON: CHEST SINGLE AP, June 14, 2017, 20:42. INDICATIONS : Post Left Thoracentesis MEDICAL HISTORY : Carcinoma, esophageal. Afib SURGICAL HISTORY : Appendectomy. Cardiac stent. Left chest port. ENCOUNTER: Initial ACUITY: 3 days PAIN SCORE: 3/10 LOCATION: Left chest FINDINGS: There is no evidence of pneumothorax or other complication following left thoracentesis. Diffuse inte rstitial and alveolar edema is again noted without significant change. Small bilateral pleural effusi ons persist. Some basilar atelectasis. Accounting for rotation, the cardiac contours are unchanged. C hest port catheter is stable in position and is accessed. CONCLUSION: No evidence of pneumothorax following thoracentesis Joseph Bae MD on June 17, 2017 at 14:13 Board Certified Radiologist. This report was verified electronically.
--- NOTE | 2017-06-17 14:26 | HHI.PR ---
Subjective Remarks Follow-up nausea and vomiting and pleural effusion. Patient seen and examined, lying in bed. Patient denies any further nausea or vomiting. Positive bowel movement today. Patient underwent thoracentesis today with IR, tolerated well. Objective Vitals Vital Signs Date Time Temp Pulse Resp B/P (MAP) Pulse Ox O2 Delivery O2 Flow Rate FiO2 06/17/17 09:03 20 06/17/17 08:00 97.7 82 18 192/87 (122) 95 06/17/17 04:00 97.4 80 20 178/84 (115) 97 06/17/17 00:00 97.2 76 18 167/97 (120) 95 06/16/17 20:00 97.7 80 16 150/89 (109) 94 06/16/17 20:00 78 06/16/17 16:00 98.1 74 16 126/83 (97) 93 I/O 06/16/17 06/16/17 06/16/17 06/17/17 06/17/17 06/17/17 06:59 14:59 22:59 06:59 14:59 22:59 Intake Total 1002 ml 2 ml 505 ml Output Total 200 ml Balance -200 ml 1002 ml 2 ml 505 ml Intake Oral 0 ml IV Total 1002 ml 2 ml 505 ml Output Urine Total 200 ml # Voids 2 # Bowel Movements 1 1 1 Result Diagram: 06/15/17 0528 06/17/17 0700 Imaging Last Impressions Chest X-Ray 06/17/17 0000 Signed Impressions: Service Date/Time: Saturday, June 17, 2017 13:59 - CONCLUSION: No evidence of pneumothorax following thoracentesis Joseph Bae MD Chest Ultrasound 06/16/17 0000 Signed Impressions: Service Date/Time: Friday, June 16, 2017 08:41 - CONCLUSION: Percutaneous marking of large left pleural effusion was made. Surinder Youngblood MD Abdomen/Pelvis CT 06/14/17 0000 Signed Impressions: Service Date/Time: Wednesday, June 14, 2017 21:09 - CONCLUSION: 1. There are bilateral pleural effusions new when compared to prior exam. 2. There is ascites within the abdomen. This is new when compared to previous study as well. 3. There are multiple loops of fluid-filled, mildly distended small bowel and portions of the colon. There is gas and stool down to the rectum. 4. No free intraperitoneal air is identified. 5. Severe rotatory scoliosis of the drastic and lumbar spine. London Del Rosario MD Objective Remarks GENERAL: Well-developed, thin female patient in NAD. Legally blind SKIN: Warm and dry. No rash. Left chest port HEAD: Normocephalic. Atraumatic. EYES: Pupils equal and round. No scleral icterus. No injection or drainage. ENT: No nasal bleeding or discharge. Mucous membranes pink and moist. NECK: Supple. Trachea midline. CARDIOVASCULAR: Regular rate and rhythm. S1, S2 noted. No murmur appreciated. RESPIRATORY: No accessory muscle use. Clear to auscultation. Breath sounds equal bilaterally. GASTROINTESTINAL: Abdomen soft, non-tender, nondistended. Normoactive bowel sounds x4. MUSCULOSKELETAL: No obvious deformities. Extremities without clubbing, cyanosis , or edema. NEUROLOGICAL: Awake and alert. No obvious cranial nerve deficits. Motor grossly within normal limits. 5/5 muscle strength in bilateral upper and lower extremities. Normal speech. A/P Assessment and Plan 67 years old female with extensive past medical history including esophageal cancer, He's esophagitis, Crohn's disease and colitis, coronary artery disease with stenting and CABG, hypertension, hyperlipidemia, atrial fibrillation, seizure seizure disorder related to electrolyte imbalance due to Crohn's and diarrhea, presented to the ED complaining of worsening nausea and vomiting and no bowel movement for several days, the patient reported she was not able to hold any food and drink in her stomach. Small bowel obstruction versus ileus and ascites History of Crohn's disease History of colitis and esophageal cancer History of He's esophagus Abdominal/pelvis CT reviewed showing bilateral pleural effusions with ascites. Mildly distended small bowel and portions of the colon. Gastroenterology consulted, appreciated, most likely ileus related to pain medications and metastatic esophageal cancer. No need for any endoscopic intervention. Continue Reglan and bowel regimen. Signed off. Nausea and vomiting have improved. Will attempt clear liquid diet. Monitor for toleration. Advance as able. Continue gentle IV hydration. Compazine and Zofran available as needed for nausea. Control pain, IV narcotics available as needed per pain scale. Supportive care. Left-sided basilar pleural effusion Chest x-ray reviewed showing increasing left basilar effusion and atelectasis. Ultrasound guided thoracentesis today, patient tolerated well. Hold Eliquis for procedure. Will restart upon discharge. Supplemental O2 as needed, oxygen saturations 96% on room air. History of CAD with [place] and stent placement History of hypertension and hyperlipidemia History of CABG Continue home medications. Including aspirin, metoprolol and pravastatin. Will continue Eliquis per IR recommendations. Upon discharge. DVT prophylaxis: SCDs. Patient has been on Eliquis. Madison Tom Jun 17, 2017 14:26
[2017-06-17] MEDS: amLODIPine BESYLATE 5 MG TAB PO SCH (17:10)
[2017-06-17] MEDS: PRAVASTATIN SOD 40 MG TAB PO SCH (21:50)
[2017-06-17] MEDS: ACETAMINOPHEN/HYDROcodone 325 MG/10 MG TAB PO PRN (21:52)
[2017-06-18] VITALS (7 sets, daily range): BP systolic 130–170; BP diastolic 82–103; PULSE 82–109; RESP 14–20; TEMP 96.4–97.7; O2SAT 90–97
[2017-06-18] MEDS: SODIUM CHLORIDE 0.9% FLUSH 10 ML FLUSH IV FLUSH PRN (05:42)
[2017-06-18] MEDS: METOCLOPRAMIDE HCL 10 MG/2 ML VIAL IV PUSH SCH ×3 (05:42→22:07)
[2017-06-18] MEDS: FAMOTIDINE 20 MG TAB PO SCH ×2 (09:21→22:05)
[2017-06-18] MEDS: METOPROLOL TARTRATE 25 MG TAB PO SCH ×2 (09:21→22:06)
[2017-06-18] MEDS: predniSONE 5 MG TAB PO SCH (09:21)
[2017-06-18] MEDS: carBAMazepine 200 MG TAB PO SCH ×2 (09:21→22:07)
[2017-06-18] MEDS: PANTOPRAZOLE SOD 20 MG DELAYED RELEASE TAB PO SCH (09:22)
[2017-06-18] MEDS: amLODIPine BESYLATE 5 MG TAB PO SCH (09:22)
[2017-06-18] MEDS: ASPIRIN 81 MG CHEW TAB CHEW SCH (09:22)
[2017-06-18] MEDS: SERTRALINE HCL 50 MG TAB PO SCH (09:22)
[2017-06-18] MEDS: GABAPENTIN 300 MG CAP PO SCH ×2 (09:22→22:06)
[2017-06-18] MEDS: SUCRALFATE 1 GM/10 ML CUP PO SCH ×3 (09:23→17:10)
[2017-06-18] MEDS: SODIUM CHLORIDE 0.9% FLUSH 10 ML FLUSH IV FLUSH SCH ×2 (09:23→22:04)
[2017-06-18] MEDS: ONDANSETRON HCL 4 MG/2 ML VIAL IVP PRN (10:06)
--- NOTE | 2017-06-18 12:35 | HHI.PR ---
Subjective Remarks Follow-up nausea, vomiting and pleural effusion. Patient seen and examined, lying in bed states that she has not had an appetite nor ate anything. Nausea has improved. Positive bowel movement yesterday. Comfortable after thoracentesis. Started on Megace. Spoke with GI with no further recommendations. Awaiting palliative care consult. at bedside and updated, he is adamant about getting patient better but feels he cannot take care of her at home alone anymore. Objective Vitals Vital Signs Date Time Temp Pulse Resp B/P (MAP) Pulse Ox O2 Delivery O2 Flow Rate FiO2 06/18/17 08:00 96.8 88 18 170/98 (122) 93 06/18/17 04:00 82 06/18/17 04:00 97.2 83 20 154/89 (110) 97 06/18/17 00:00 82 06/18/17 00:00 97.7 82 20 165/101 (122) 96 06/17/17 22:52 20 06/17/17 20:00 82 06/17/17 20:00 98.5 82 20 171/86 (114) 97 06/17/17 16:00 98.0 80 18 177/88 (117) 96 06/17/17 15:00 98.0 88 18 167/80 (109) 97 I/O 06/17/17 06/17/17 06/17/17 06/18/17 06/18/17 06/18/17 07:00 15:00 23:00 07:00 15:00 23:00 Intake Total 505 ml 625 ml 0 ml 60 ml Balance 505 ml 625 ml 0 ml 60 ml Intake Oral 0 ml 60 ml IV Total 505 ml 625 ml # Voids 2 2 # Bowel Movements 1 2 Result Diagram: 06/15/17 0528 06/17/17 0700 Imaging Last Impressions Chest X-Ray 06/17/17 0000 Signed Impressions: Service Date/Time: Saturday, June 17, 2017 13:59 - CONCLUSION: No evidence of pneumothorax following thoracentesis Joseph Bae MD Chest Ultrasound 06/16/17 0000 Signed Impressions: Service Date/Time: Friday, June 16, 2017 08:41 - CONCLUSION: Percutaneous marking of large left pleural effusion was made. Surinder Youngblood MD Abdomen/Pelvis CT 06/14/17 0000 Signed Impressions: Service Date/Time: Wednesday, June 14, 2017 21:09 - CONCLUSION: 1. There are bilateral pleural effusions new when compared to prior exam. 2. There is ascites within the abdomen. This is new when compared to previous study as well. 3. There are multiple loops of fluid-filled, mildly distended small bowel and portions of the colon. There is gas and stool down to the rectum. 4. No free intraperitoneal air is identified. 5. Severe rotatory scoliosis of the drastic and lumbar spine. London Del Rosario MD Objective Remarks GENERAL: Well-developed, thin female patient in NAD. Legally blind SKIN: Warm and dry. No rash. Left chest port HEAD: Normocephalic. Atraumatic. EYES: Pupils equal and round. No scleral icterus. No injection or drainage. ENT: No nasal bleeding or discharge. Mucous membranes pink and moist. NECK: Supple. Trachea midline. CARDIOVASCULAR: Regular rate and rhythm. S1, S2 noted. No murmur appreciated. RESPIRATORY: No accessory muscle use. Clear to auscultation. Breath sounds equal bilaterally. GASTROINTESTINAL: Abdomen soft, non-tender, nondistended. Normoactive bowel sounds x4. MUSCULOSKELETAL: No obvious deformities. Extremities without clubbing, cyanosis , or edema. NEUROLOGICAL: Awake and alert. No obvious cranial nerve deficits. Motor grossly within normal limits. 4/5 muscle strength in bilateral upper and lower extremities. Normal speech. A/P Assessment and Plan 67 years old female with extensive past medical history including esophageal cancer, He's esophagitis, Crohn's disease and colitis, coronary artery disease with stenting and CABG, hypertension, hyperlipidemia, atrial fibrillation, seizure seizure disorder related to electrolyte imbalance due to Crohn's and diarrhea, presented to the ED complaining of worsening nausea and vomiting and no bowel movement for several days, the patient reported she was not able to hold any food and drink in her stomach. Small bowel obstruction versus ileus and ascites History of Crohn's disease History of colitis and esophageal cancer History of He's esophagus Abdominal/pelvis CT reviewed showing bilateral pleural effusions with ascites. Mildly distended small bowel and portions of the colon. Gastroenterology consulted, appreciated, most likely ileus related to pain medications and metastatic esophageal cancer. No need for any endoscopic intervention. Continue Reglan and bowel regimen. Signed off. Nausea and vomiting have improved. Has been tolerating clear liquid diet with no nausea although patient states she has no appetite and refusing to eat dinner last evening or breakfast today. Megace started. Compazine and Zofran available as needed for nausea. Control pain, p.o. [place] available as needed for pain scale. Supportive care. Left-sided basilar pleural effusion Chest x-ray reviewed showing increasing left basilar effusion and atelectasis. Ultrasound guided thoracentesis today, patient tolerated well. Restart Eliquis this evening. Supplemental O2 as needed, oxygen saturations 96% on room air. History of CAD with [place] and stent placement History of hypertension and hyperlipidemia History of CABG Continue home medications. Including aspirin, metoprolol and pravastatin. Restart Eliquis this evening. DVT prophylaxis: SCDs. Patient has been on Eliquis. Madison Tom Jun 18, 2017 12:35
[2017-06-18] MEDS: ACETAMINOPHEN/HYDROcodone 325 MG/10 MG TAB PO PRN (12:44)
--- NOTE | 2017-06-18 12:56 | RADRPT ---
EXAM DATE/TIME: 06/17/2017 13:38 [place] COMPARISON: No previous studies available for comparison. EXTERNAL COMPARISON: [facility]. PET/CT Tumor, May 22 2017 and 11/14/2016. CT Chest, 10/22/16, 06/10/2016. INDICATIONS : Left pleural effusion. MEDICAL HISTORY : Myocardial infarction. Esophogeal cancer. Afib. CAD. Hyperlipidemia. Hypertension. Crohn's dis ease. SURGICAL HISTORY : Tonsillectomy. Appendectomy. Cholecystectomy. Hysterectomy. Left AKA. Left knee replacement. Cardi ac ablation. ENCOUNTER: Subsequent ACUITY: 1 day PAIN SCORE: 0/10 LOCATION: Left chest FLUID: Total volume of 500 cc of clear, yellow fluid was removed. Fluid was discarded. Thoracentesis was therapeutic only. TECHNIQUE: 1. Ultrasound guidance for thoracentesis. 2. Thoracentesis. The risks, benefits, and alternatives to ultrasound guided thoracentesis were explained to the patien t in lay simple terms, including the risk of bleeding and infection. Written and verbal informed con sent was obtained. Appropriate area for thoracentesis was marked under ultrasound guidance with the patient in the uprig ht position. Overlying skin was prepped and draped in the usual sterile fashion and with local anest hetic, a dermatotomy was made with an 11 blade scalpel. A 6 [place] thoracentesis catheter was placed in the pleural space and fluid was removed. Catheter was then removed and a sterile dressing applie d. There were no immediate complications. The patient tolerated the procedure well and the left the ultrasound suite in stable condition. Chest radiograph is to be obtained. CONCLUSION: Uncomplicated ultrasound guided thoracentesis. Joseph Bae MD on June 18, 2017 at 12:55 Board Certified Radiologist. This report was verified electronically.
[2017-06-18] MEDS: MEGESTROL ACETATE 40 MG TAB PO SCH (22:05)
[2017-06-18] MEDS: PRAVASTATIN SOD 40 MG TAB PO SCH (22:06)
[2017-06-18] MEDS: APIXABAN 2.5 MG TABLET PO SCH (22:08)
[2017-06-19] VITALS (7 sets, daily range): BP systolic 102–194; BP diastolic 66–99; PULSE 85–87; RESP 16–18; TEMP 96.6–97.6; O2SAT 90–96
[2017-06-19] MEDS: ACETAMINOPHEN/HYDROcodone 325 MG/10 MG TAB PO PRN ×3 (00:05→18:48)
[2017-06-19] MEDS: SODIUM CHLORIDE 0.9% FLUSH 10 ML FLUSH IV FLUSH PRN ×2 (05:37→05:38)
[2017-06-19] MEDS: METOCLOPRAMIDE HCL 10 MG/2 ML VIAL IV PUSH SCH ×3 (05:38→23:02)
[2017-06-19 06:19] LABS: CALCIUM 7.8 MG/DL (8.5-10.1)
[2017-06-19 06:23] LABS: CREATININE 1.5 MG/DL (0.50-1.00)
--- NOTE | 2017-06-19 07:45 | HHI.DS ---
Discharge Summary Admission Date Jun 15, 2017 at 12:11 Discharge Date: Jun 19, 2017 Admitting Diagnosis Ileus; ascites; esophageal cancer (1) Ileus ICD Code: K56.7 - Ileus Status: Acute Procedures Abdominal CT. Thoracentesis. See below. Brief History - From Admission 67 years old female with extensive past medical history including esophageal cancer, He's esophagitis, Crohn's disease and colitis, coronary artery disease with stenting and CABG, hypertension, hyperlipidemia, atrial fibrillation, seizure seizure disorder related to electrolyte imbalance due to Crohn's and diarrhea, presented to the ED complaining of worsening nausea and vomiting and no bowel movement for several days, the patient reported she was not able to hold any food and drink in her stomach., she denied significant abdominal pain, patient was diagnosed with esophageal cancer in October 2015 she is status post radiation and chemotherapy as she was determined at the time that she is not a candidate of surgical intervention, recent EGD of the patient showed recurrence of her cancerous disease. Patient denied any other complaints such as chest pain short of breath dysuria, hematochezia or melena CBC/BMP: 06/15/17 0528 06/19/17 0545 Significant Findings Laboratory Tests Test 06/17/17 07:00 06/19/17 05:45 Blood Urea Nitrogen 28 MG/DL (7-18) 20 MG/DL (7-18) Creatinine 1.70 MG/DL (0.50-1.00) 1.50 MG/DL (0.50-1.00) Calcium Level 8.1 MG/DL (8.5-10.1) 7.8 MG/DL (8.5-10.1) Chloride Level 110 MEQ/L (98-107) Carbon Dioxide Level 18.5 MEQ/L (21.0-32.0) 20.0 MEQ/L (21.0-32.0) Estimat Glomerular Filtration Rate 30 ML/MIN (>89) 35 ML/MIN (>89) Sodium Level 135 MEQ/L (136-145) Imaging Last Impressions Thoracentesis Ultrasound 06/17/17 0000 Signed Impressions: Service Date/Time: Saturday, June 17, 2017 13:38 - CONCLUSION: Uncomplicated ultrasound guided thoracentesis. Joseph Bae MD Chest X-Ray 06/17/17 0000 Signed Impressions: Service Date/Time: Saturday, June 17, 2017 13:59 - CONCLUSION: No evidence of pneumothorax following thoracentesis Joseph Bae MD Chest Ultrasound 06/16/17 0000 Signed Impressions: Service Date/Time: Friday, June 16, 2017 08:41 - CONCLUSION: Percutaneous marking of large left pleural effusion was made. Surinder Youngblood MD Abdomen/Pelvis CT 06/14/17 0000 Signed Impressions: Service Date/Time: Wednesday, June 14, 2017 21:09 - CONCLUSION: 1. There are bilateral pleural effusions new when compared to prior exam. 2. There is ascites within the abdomen. This is new when compared to previous study as well. 3. There are multiple loops of fluid-filled, mildly distended small bowel and portions of the colon. There is gas and stool down to the rectum. 4. No free intraperitoneal air is identified. 5. Severe rotatory scoliosis of the drastic and lumbar spine. London Del Rosario MD PE at Discharge GENERAL: Well-developed, thin female patient in NAD. Legally blind SKIN: Warm and dry. No rash. Left chest port HEAD: Normocephalic. Atraumatic. EYES: Pupils equal and round. No scleral icterus. No injection or drainage. ENT: No nasal bleeding or discharge. Mucous membranes pink and moist. NECK: Supple. Trachea midline. CARDIOVASCULAR: Regular rate and rhythm. S1, S2 noted. No murmur appreciated. RESPIRATORY: No accessory muscle use. Clear to auscultation. Breath sounds equal bilaterally. GASTROINTESTINAL: Abdomen soft, non-tender, nondistended. Normoactive bowel sounds x4. MUSCULOSKELETAL: No obvious deformities. Extremities without clubbing, cyanosis , or edema. Left lower extremity AKA. NEUROLOGICAL: Awake and alert. Motor grossly within normal limits. 4/5 muscle strength in bilateral upper and lower extremities. Normal speech. Pt update on day of discharge Follow-up nausea. Patient seen and examined, lying in bed comfortably. Eating breakfast. States she feels much better. at bedside and updated. Denies any further nausea. Denies any abdominal pain or vomiting. Megace seems to be improving her appetite. Blood pressure elevated this morning, given amlodipine and as needed clonidine and now resolved BP 127/75. Awaiting placement to [place] today. Hospital Course 67 years old female with extensive past medical history including esophageal cancer, He's esophagitis, Crohn's disease and colitis, coronary artery disease with stenting and CABG, hypertension, hyperlipidemia, atrial fibrillation, seizure seizure disorder related to electrolyte imbalance due to Crohn's and diarrhea, presented to the ED complaining of worsening nausea and vomiting and no bowel movement for several days, the patient reported she was not able to hold any food and drink in her stomach. Patient has a history of Crohn's disease, colitis esophageal cancer and He's esophagus-itis who presented with a small bowel obstruction versus ileus and ascites. Abdominal CT showing bilateral pleural effusions with ascites mildly distended small bowel and portions of the colon, gastroenterology consulted who states it was most likely an ileus related to pain medications and metastatic esophageal cancer. No recommendations for endoscopic intervention. Was given Reglan and bowel regimen. Positive bowel movement. With resolution of nausea. Tolerating full regular diet with no nausea or abdominal pain. Denies any diarrhea. Positive bowel movement. Megace started for appetite. Seems to be working. Patient was found to have a left-sided basilar pleural effusion, ultrasound was performed and guided thoracentesis was done for which 500 mL of fluid was obtained. Patient is status post thoracentesis and comfortable on room air. Patient has history of CAD with [place] with stent placement, hypertension , hyperlipidemia and CABG for which home medications were resumed including aspirin, metoprolol and pravastatin. Eliquis was continued. Pt Condition on Discharge: Stable Discharge Disposition: Rehab Inpatient Discharge Time: > 30 minutes Discharge Instructions DIET: Follow Instructions for: Heart Healthy Diet Speech Therapy-Diet Recommends: Regular Activities you can perform: Regular-No Restrictions Follow up Referrals: PCP Follow-up - 2-3 Days New Medications: Megestrol (Megestrol) 40 Mg Tab 40 MG PO Q12HR for appetite for 30 Days, #60 TAB Continued Medications: Apixaban (Eliquis) 2.5 Mg Tab 2.5 MG PO BID for Blood Clot Prevention, TAB 0 Refills Aspirin (Aspirin Children's) 81 Mg Chew 81 MG CHEW DAILY for Blood Clot Prevention, TAB 0 Refills Carbamazepine (Tegretol) 200 Mg Tab 200 MG PO BID for Seizure Control, #60 TAB 0 Refills Diphenoxylate-Atropine (Lomotil) 2.5-0.025 Mg Tab 1 TAB PO Q6H PRN for DIARRHEA, TAB 0 Refills Gabapentin (Gabapentin) 600 Mg Tab 600 MG PO BID for Pain Management, #60 TAB 0 Refills Hydrocodone-Acetaminophen (Hydrocodone-Acetaminophen) 10-325 mg Tab 1 TAB PO Q6H PRN for PAIN, #120 TAB 0 Refills Lidocaine Viscous Liq (Lidocaine Viscous Liq) 2 % Liqd 5 ML SWISH-SWAL DIRECTED PRN for PAIN, #1 BOTTLE [address] (Lialda) 1.2 Gm Tabdr 1.2 GM PO BID for Ulcerative Colitis, TAB 0 Refills Take with a meal. Metoprolol Tartrate (Metoprolol Tartrate) 25 Mg Tab 25 MG PO BID for Blood Pressure Management, #60 TAB 0 Refills Omeprazole (Omeprazole) 20 Mg Tab 20 MG PO DAILY, #30 TAB 0 Refills Ranitidine (Ranitidine) 150 Mg Tab 150 MG PO DAILY for Heartburn Management, #30 TAB 0 Refills Sertraline (Sertraline) 25 Mg Tab 25 MG PO DAILY, #30 TAB 0 Refills Simvastatin (Simvastatin) 40 Mg Tab 40 MG PO HS for Cholesterol Management, #30 TAB 0 Refills Sucralfate Liq (Carafate Liq) 1 Gm/10 Ml Susp 1 GM PO TID for Duodenal ulcer, #900 ML 0 Refills on empty stomach Discontinued Medications: Pantoprazole (Pantoprazole) 40 Mg Tab 40 MG PO BID for Reflux, #30 TAB 0 Refills Prednisone (21) 5 mg tab Dose Pack (Prednisone (21) 5 mg tab Dose Pack) 5 Mg Dspk 5 MG PO DIRECTED for Inflammation, #1 DSPK 0 Refills Madison Tom Jun 19, 2017 07:45
[2017-06-19] MEDS ORDERED: MEGE40TA PO (08:01)
[2017-06-19] MEDS ORDERED: cloNIDine HCL 0.1 MG TAB PO PRN (09:00)
[2017-06-19] MEDS: predniSONE 5 MG TAB PO SCH (10:44)
[2017-06-19] MEDS: PANTOPRAZOLE SOD 20 MG DELAYED RELEASE TAB PO SCH (10:44)
[2017-06-19] MEDS: carBAMazepine 200 MG TAB PO SCH ×2 (10:46→23:04)
[2017-06-19] MEDS: METOPROLOL TARTRATE 25 MG TAB PO SCH ×2 (10:48→23:03)
[2017-06-19] MEDS: ASPIRIN 81 MG CHEW TAB CHEW SCH (10:48)
[2017-06-19] MEDS: SUCRALFATE 1 GM/10 ML CUP PO SCH ×3 (10:49→18:47)
[2017-06-19] MEDS: APIXABAN 2.5 MG TABLET PO SCH ×2 (10:49→23:02)
[2017-06-19] MEDS: SERTRALINE HCL 50 MG TAB PO SCH (10:49)
[2017-06-19] MEDS: FAMOTIDINE 20 MG TAB PO SCH ×2 (10:49→23:03)
[2017-06-19] MEDS: SODIUM CHLORIDE 0.9% FLUSH 10 ML FLUSH IV FLUSH SCH ×2 (10:50→23:04)
[2017-06-19] MEDS: GABAPENTIN 300 MG CAP PO SCH ×2 (10:50→23:03)
[2017-06-19] MEDS: MEGESTROL ACETATE 40 MG TAB PO SCH ×2 (11:03→23:03)
[2017-06-19] MEDS: PRAVASTATIN SOD 40 MG TAB PO SCH (23:04)
[2017-06-20] VITALS: BP 110/72; PULSE 89; RESP 18; TEMP 97.8; O2SAT 96
[2017-06-20 04:00] VITALS: BP 147/95; PULSE 82; RESP 16; TEMP 97; O2SAT 93
[2017-06-20] MEDS: ACETAMINOPHEN/HYDROcodone 325 MG/10 MG TAB PO PRN (05:58)
[2017-06-20] MEDS: METOCLOPRAMIDE HCL 10 MG/2 ML VIAL IV PUSH SCH ×2 (05:59→12:58)
[2017-06-20] MEDS: SODIUM CHLORIDE 0.9% FLUSH 10 ML FLUSH IV FLUSH PRN ×2 (05:59→16:43)
[2017-06-20 08:16] VITALS: PULSE 87
[2017-06-20 09:08] VITALS: BP 137/84; PULSE 90; RESP 18; TEMP 98.5; O2SAT 95
[2017-06-20] MEDS: SUCRALFATE 1 GM/10 ML CUP PO SCH ×2 (09:09→12:58)
[2017-06-20] MEDS: SERTRALINE HCL 50 MG TAB PO SCH (09:09)
[2017-06-20] MEDS: METOPROLOL TARTRATE 25 MG TAB PO SCH (09:10)
[2017-06-20] MEDS: FAMOTIDINE 20 MG TAB PO SCH (09:10)
[2017-06-20] MEDS: carBAMazepine 200 MG TAB PO SCH (09:10)
[2017-06-20] MEDS: predniSONE 5 MG TAB PO SCH (09:10)
[2017-06-20] MEDS: GABAPENTIN 300 MG CAP PO SCH (09:10)
[2017-06-20] MEDS: PANTOPRAZOLE SOD 20 MG DELAYED RELEASE TAB PO SCH (09:10)
[2017-06-20] MEDS: APIXABAN 2.5 MG TABLET PO SCH (09:11)
[2017-06-20] MEDS: SODIUM CHLORIDE 0.9% FLUSH 10 ML FLUSH IV FLUSH SCH (09:11)
[2017-06-20] MEDS: ASPIRIN 81 MG CHEW TAB CHEW SCH (09:11)
[2017-06-20] MEDS: MEGESTROL ACETATE 40 MG TAB PO SCH (09:11)
--- NOTE | 2017-06-20 10:01 | HHI.PR ---
Subjective Remarks Patient was examined today for follow-up on nausea, vomiting, ileus, pleural effusion. Patient is doing much better. Patient was discharged on 06/19/17 to rehabilitation facility. Still awaiting insurance authorization. Patient remains clinically stable. Still awaiting insurance authorization. Objective Vitals Vital Signs Date Time Temp Pulse Resp B/P (MAP) Pulse Ox O2 Delivery O2 Flow Rate FiO2 06/20/17 09:08 98.5 90 18 137/84 (101) 95 06/20/17 07:00 18 06/20/17 04:00 97.0 82 16 147/95 (112) 93 06/20/17 00:00 97.8 89 18 110/72 (85) 96 06/19/17 20:00 87 06/19/17 20:00 97.2 86 16 106/69 (81) 96 06/19/17 16:00 97.3 86 16 102/66 (78) 92 06/19/17 14:52 85 127/75 (92) 06/19/17 12:24 96.6 85 18 173/97 (122) 95 I/O 06/19/17 06/19/17 06/19/17 06/20/17 06/20/17 06/20/17 07:00 15:00 23:00 07:00 15:00 23:00 Intake Total 120 ml 240 ml 280 ml 180 ml Output Total 450 ml Balance 120 ml 240 ml -170 ml 180 ml Intake Oral 120 ml 240 ml 280 ml 180 ml Output Urine Total 450 ml # Voids 3 2 1 # Bowel Movements 1 1 0 Result Diagram: 06/19/17 0545 Objective Remarks GENERAL: Well-developed, well-nourished, in no acute distress. alert and orientated HEENT: Head is normocephalic without any lesions or masses noted. Facial features are symmetric. NECK: Supple without any masses. Trachea midline no deviation. No JVD, CARDIAC: Regular rhythm, regular rate. S1/S2 are heard. No murmurs gallops or rubs. LUNGS: Clear to auscultation bilaterally. No wheeze, rhonchi or rales. No use of accessory muscles on inspiration or expiration. ABDOMEN: Soft, nontender. Nondistended. Bowel sounds heard in all 4 quadrants. No organomegaly or masses. Negative rebound, negative guarding EXTREMITIES: No edema, pulses are equal bilaterally. No cyanosis or clubbing NEUROLOGY: Mood and affect appear appropriate. Cranial nerves II through XII grossly intact. Moving all extremities, speech is clear Procedures Abdominal CT. Thoracentesis. See below. Urinary Catheter: No Vascular Central Line Catheter: No A/P Assessment and Plan Small bowel obstruction versus ileus and ascites Patient with history of Crohn's disease, colitis, esophageal cancer, He' s esophagus Abdominal/pelvis CT reviewed showing bilateral pleural effusions with ascites. Mildly distended small bowel and portions of colon. Gastroenterology consulted,most likely ileus related to pain medications and metastatic esophageal cancer. No need for any endoscopic intervention. Signed off. Continue Reglan and bowel regimen. Nausea and vomiting have improved. Patient tolerating diet diet with no nausea Continue Megace Compazine and Zofran available as needed for nausea. Control pain, p.o. [place] available as needed for pain scale. Supportive care. Left-sided basilar pleural effusion Chest x-ray reviewed showing increasing left basilar effusion and atelectasis. Therapeutic Ultrasound guided thoracentesis performed 06/18/16 Continue Eliquis this evening. Supplemental O2 as needed, oxygen saturations 96% on room air. History of coronary artery disease status post stenting, history myocardial infarction, coronary bypass surgery, hypertension, hyperlipidemia Continue home medications. Including aspirin, metoprolol and pravastatin. Continue Eliquis DVT prophylaxis: Patient is on Eliquis Sequential compression devices Discharge Planning Discharge home with home health care, patient has been denied by insurance to go to rehabilitation. David Vera Jun 20, 2017 10:01
[2017-06-20 13:00] VITALS: BP 132/86; PULSE 82; RESP 16; TEMP 96.4; O2SAT 98
--- NOTE | 2017-06-20 14:00 | HHI.FF ---
Face to Face Verification Diagnosis: (1) Ileus (2) Ascites (3) Pleural effusion Physical Therapy Order: Evaluate and Treat, Improve ambulation, Strength and gait training Home Health Nursing Order: Medical education Signs/symptoms of disease process CHF education Nursing assessment with vital signs I have seen patient Hortensia Pete on 06/20/17. My clinical findings support the need for the requested home health care services because: Deconditioned w/ increased weakness Limited ability to care for self High risk of falls I certify that my clinical findings support that this patient is homebound because: Unsteady gait/balance David Vera Jun 20, 2017 14:00
== END 2017-06-20 17:24 | disposition home health service (06) | DRG 389 ==
LOC: PHED 20:05 → PHEDA 23:06 → PHEDH 06-15 03:06 → PH3A 06-15 08:07 → OBSVTOIN 06-15 12:11 → PH3A 06-17 01:19
PROVIDERS: ADMIT Hospitalist; ATTEND Hospitalist
PROC: 0W9B3ZZ Drainage of Left Pleural Cavity, Percutaneous Approach (ICD-10-PCS; principal; 2017-06-18)
DX: K56.7 Ileus, unspecified (principal); N17.9 Acute kidney failure, unspecified; R18.0 Malignant ascites; C15.5 Malignant neoplasm of lower third of esophagus; E87.2 Acidosis; J91.0 Malignant pleural effusion; I50.9 Heart failure, unspecified; I13.0 Hypertensive heart and chronic kidney disease with heart failure and stage 1 through stage 4 chronic kidney disease, or unspecified chronic kidney disease; D63.0 Anemia in neoplastic disease; K50.90 Crohn's disease, unspecified, without complications; J98.11 Atelectasis; I48.91 Unspecified atrial fibrillation; G40.909 Epilepsy, unspecified, not intractable, without status epilepticus; K21.9 Gastro-esophageal reflux disease without esophagitis; K52.9 Noninfective gastroenteritis and colitis, unspecified; I25.10 Atherosclerotic heart disease of native coronary artery without angina pectoris; I25.2 Old myocardial infarction; I73.00 Raynaud's syndrome without gangrene; E78.5 Hyperlipidemia, unspecified; I45.10 Unspecified right bundle-branch block; N18.9 Chronic kidney disease, unspecified; E88.09 Other disorders of plasma-protein metabolism, not elsewhere classified; Z87.891 Personal history of nicotine dependence; Z88.2 Allergy status to sulfonamides; Z88.5 Allergy status to narcotic agent; Z88.6 Allergy status to analgesic agent; Z89.612 Acquired absence of left leg above knee; Z90.49 Acquired absence of other specified parts of digestive tract; Z92.21 Personal history of antineoplastic chemotherapy; Z92.3 Personal history of irradiation; Z95.1 Presence of aortocoronary bypass graft; Z95.5 Presence of coronary angioplasty implant and graft
CPT/HCPCS: 32555; 71045; 74176; 76604; 80048; 80053; 81001; 83605; 83690; 85007; 85025; 85027; 85610; 85730; 93005; 96361; 96374; C1729; G0378; J1642; J2270; J2405; J2765; J3480; J7030; J7040; J7512

== ENCOUNTER → 2017-06-22 | Outpatient (CLI) | payer OTHER ==
[~2017-06-22] VITALS: Ht 162.6 cm; Wt 43.0 kg
[~2017-06-22] MED LIST changes: +APIX2.5T PO; -APIX5TAB PO; +CHLORHEXIDINE GLUCONATE 2 % 1 PACK (2 CLOTHS) TOPICAL PRN; +INSULIN HUMAN REGULAR 1,000 UNITS/10 ML VIAL SQ PRN; +LACTATED RINGER'S 1000 ML IV PRN; -LEVA500T33 PO; +MEGE40TA PO; +METOPROLOL TARTRATE 25 MG TAB PO PRN; +PHENYLEPH/NS 1000 MCG/10 ML SYR IV ONE; +POVIDONE IODINE 5% (ANTISEPSIS KIT) 4 APPLICATIONS EACH NARE PRN; -PRED5PAK PO; +PROPOFOL 200 MG/20 ML AMP IV ONE; +SERT25TA83 PO; +SODIUM CHLORID 0.9% 500 ML IV PRN; +SODIUM CHLORIDE 0.9% FLUSH 10 ML FLUSH IV FLUSH PRN
--- NOTE | 2017-06-22 12:42 | PD.PROCEDR ---
GI Procedure PROCEDURE PERFORMED Endoscopic ultrasound INDICATION FOR PROCEDURE Esophageal cancer staging PROCEDURE: The procedure, risks and benefits were discussed with Ms. Wang and informed consent was obtained. Anesthesia sedated her with Diprivan. She was placed in the left lateral decubitus position. Endoscopic ultrasound: The Pentax videoscope was introduced through the oropharynx and advanced to the stomach. FINDINGS: The endoscopic ultrasound was advanced into the esophagus the tumor was noted to be at the distal portion of the esophagus the patient was found to have a small hiatal hernia and to obtain full staging the scope was advanced into the stomach the tumor appeared to expand into the adventure and past the adventure making this at least a T3 possible T4 lesion no local lymph nodes were seen the mass was mildly hypoechoic measuring at least 0.9 x 2.5 cm and it appeared to be somewhat friable ESTIMATED BLOOD LOSS: Minimal SPECIMENS REMOVED: None COMPLICATIONS: None IMPRESSION: Esophageal cancer T3 lesion N0 PLAN: Further plans shall be determined by the specialists at [facility] Follow-up in clinic in 3-4 weeks after patient is seen at [facility] Barak Mckee MD Jun 22, 2017 12:42
[2017-06-22 13:28] VITALS: BP 164/86; PULSE 91; RESP 16; TEMP 97.8; O2SAT 94
== END ==
LOC: HSDC 09:29
PROVIDERS: ATTEND Internal Medicine Gastroenterology
DX: C15.9 Malignant neoplasm of esophagus, unspecified (principal); K44.9 Diaphragmatic hernia without obstruction or gangrene
CPT/HCPCS: 00731; 43259; J1642; J2370

== ENCOUNTER 2017-07-21 12:42 | Emergency (ER) | payer OTHER ==
[~2017-07-21] VITALS: Ht 162.6 cm; Wt 43.2 kg
[~2017-07-21 12:42] MED LIST changes: -CHLORHEXIDINE GLUCONATE 2 % 1 PACK (2 CLOTHS) TOPICAL PRN; -INSULIN HUMAN REGULAR 1,000 UNITS/10 ML VIAL SQ PRN; -LACTATED RINGER'S 1000 ML IV PRN; -METOPROLOL TARTRATE 25 MG TAB PO PRN; -PHENYLEPH/NS 1000 MCG/10 ML SYR IV ONE; -POVIDONE IODINE 5% (ANTISEPSIS KIT) 4 APPLICATIONS EACH NARE PRN; -PROPOFOL 200 MG/20 ML AMP IV ONE; -SODIUM CHLORID 0.9% 500 ML IV PRN; -SODIUM CHLORIDE 0.9% FLUSH 10 ML FLUSH IV FLUSH PRN
[2017-07-21 12:47] VITALS: BP 114/55; PULSE 86; RESP 16; TEMP 98.3; O2SAT 95
[2017-07-21] MEDS ORDERED: MORP-43 PO (12:57)
--- NOTE | 2017-07-21 13:22 | RADRPT ---
EXAM DATE/TIME: 07/21/2017 12:54 [facility] COMPARISON: CHEST SINGLE AP, June 14, 2017, 20:42. INDICATIONS : Cough history of left pleural effusion status post thoracentesis. MEDICAL HISTORY : Myocardial infarction. Esophogeal cancer. Afib. CAD. Hyperlipidemia. SURGICAL HISTORY : Tonsillectomy. Appendectomy. Cholecystectomy. Hysterectomy. Left AKA. ENCOUNTER: Initial ACUITY: 1 day PAIN SCORE: 0/10 LOCATION: chest FINDINGS: A single AP semierect view of the chest was obtained. The patient is mildly rotated to the left. Abno rmal opacity remains the left lung base which is increased from the prior study. The left costophreni c angle remains blunted and the left hemidiaphragm is now obscured. The heart size remains mild to mo derately enlarged. Streaky perihilar opacities are again noted with fracture unchanged. Atherosclerot ic changes are again noted in the aorta. The left-sided implantable port catheter remains in place. T here are multiple surgical clips and guillermo in the upper abdomen. Patient status post cervical fusio n with screw-plate fixation device. CONCLUSION: 1. Interval increase in opacity at the left lung base most consistent with with increasing left pleur al effusion. 2. Streaky perihilar opacities are again noted which may represent mild pulmonary edema. Marc Lerner MD on July 21, 2017 at 13:18 Board Certified Radiologist. This report was verified electronically.
[2017-07-21 13:27] LABS: BASOPHIL # 0.1 TH/MM3 (0-0.2); BASOPHIL % 1.3 % (0.0-2.0); HEMATOCRIT 36.4 % (35.0-46.0); HEMOGLOBIN 11.9 GM/DL (11.6-15.3); LYMPH % 17.6 % (9.0-44.0); LYMPHOCYTE # 0.8 TH/MM3 (1.0-4.8); MEAN CELL VOLUME 97.2 FL (80.0-100.0); MEAN CORPUSCULAR HEMOGLOBIN 31.8 PG (27.0-34.0); MEAN CORPUSCULAR HGB CONC 32.7 % (32.0-36.0); MEAN PLATELET VOLUME 9.6 FL (7.0-11.0); MONO % 14.3 % (0.0-8.0); MONOCYTE # 0.6 TH/MM3 (0-0.9); NEUT % 65.8 % (16.0-70.0); PLATELET COUNT 141 TH/MM3 (150-450); RED BLOOD COUNT 3.75 MIL/MM3 (4.00-5.30); RED CELL DISTRIBUTION WIDTH 15.8 % (11.6-17.2); WHITE BLOOD COUNT 4.5 TH/MM3 (4.0-11.0)
--- NOTE | 2017-07-21 13:35 | PD ---
HPI Chief Complaint: GI Complaint Time Seen by Provider: 13:18 Travel History International Travel<30 days: No Contact w/Intl Traveler<30days: No Traveled to known affect area: No History of Present Illness HPI This patient complains of loss of appetite. She is getting chemotherapy for metastatic esophageal cancer. He just does not feel like eating. Is not because of nausea or pain but just poor appetite. She saw her oncologist a couple of days ago. Unclear if this was discussed with the patient has no idea if it was. Symptom severity is moderate. No alleviating factors. Symptoms exacerbated by her chemotherapy and her cancer. Duration 1 week PFSH Past Medical History Hx Anticoagulant Therapy: Yes (Eliquis, ASA 81) Arthritis: No Asthma: No Atrial Fibrillation: Yes Autoimmune Disease: No Blood Disorders: No Heart Rhythm Problems: No Cancer: Yes (esophageal ) Cardiovascular Problems: Yes ([place], A Fib, HTN) High Cholesterol: No Chemotherapy: Yes (for esophageal CA) Chest Pain: No Congestive Heart Failure: No COPD: No Coronary Artery Disease: Yes Diabetes: No Diminished Hearing: No Endocrine: No Gastrointestinal Disorders: Yes (CROHN'S DISEASE, GERD) GERD: No Genitourinary: No Headaches: No Hepatitis: No Hiatal Hernia: Yes (REPAIRED) Heparin Induced Thrombocytopen: No Hypertension: Yes Immune Disorder: No Implanted Vascular Access Dvce: No Kidney Stones: Yes Medical other: Yes (raynauds ) Musculoskeletal: Yes (CERVICAL DISCS BULDGING) Psychiatric: No Reproductive: No Respiratory: No Migraines: No Myocardial Infarction: Yes (1999, 09/09/11) Radiation Therapy: No Renal Failure: No Seizures: Yes (RELATED TO ELECTROLYTE IMBALANCE WITH CHROHNS FLAREUP) Sickle Cell Disease: No Sleep Apnea: No Thyroid Disease: No Ulcer: No Tetanus Vaccination: < 5 Years Influenza Vaccination: Yes Menopausal: Yes : 0 Past Surgical History Abdominal Surgery: Yes (FEEDING TUBE PLACED AND REMOVED, AND REMOVED NOV 2013, [facility]) AICD: No Appendectomy: Yes Arteriovenous Shunt: No Body Medical Devices: CARDIAC STENTS, PORT LEFT CHEST Cardiac Surgery: Yes (STENTS, PORT LEFT CHEST) Cholecystectomy: Yes (1994) Coronary Stent: Yes (LEFT KNEE REPLACEMENT, THEN ABOVE KNEE AMP) Ear Surgery: No Endocrine Surgery: No Eye Surgery: No Genitourinary Surgery: No Gynecologic Surgery: No Hysterectomy: Yes Insulin Pump: No Joint Replacement: No Neurologic Surgery: No Oral Surgery: Yes (TONSILS) Pacemaker: No Thoracic Surgery: No Tonsillectomy: Yes Other Surgery: Yes (stump left) Social History Alcohol Use: No Tobacco Use: No Substance Use: No Allergies-Medications (Allergen,Severity, Reaction): Coded Allergies: oxycodone (Unverified Adverse Reaction, Severe, CONSTIPATION, 07/21/17) due to hx of chrons Sulfa (Sulfonamide Antibiotics) (Unverified Adverse Reaction, Mild, CRAMPS , 07/21/17) gi upset acetaminophen (Unverified Adverse Reaction, Mild, CONSTIPATION, 07/21/17) due to hx of chrons Reported Meds & Prescriptions Reported Meds & Active Scripts Active Megestrol (Megestrol Acetate) 40 Mg Tab 40 Mg PO Q12HR 30 Days Hydrocodone-Acetaminophen 10-325 mg Tab 1 Tab PO Q6H PRN Reported Morphabond ER 12 HR (Morphine Sulfate) 15 Mg Tab 15 Mg PO Q12H Sertraline (Sertraline HCl) 25 Mg Tab 25 Mg PO DAILY Eliquis (Apixaban) 2.5 Mg Tab 2.5 Mg PO BID Omeprazole 20 Mg Tab 20 Mg PO DAILY Lomotil (Diphenoxylate-Atropine) 2.5-0.025 Mg Tab 1 Tab PO Q6H PRN Lidocaine Viscous Liq 2 % Liqd 5 Ml SWISH-SWAL DIRECTED PRN Lialda (Mesalamine) 1.2 Gm Tabdr 1.2 Gm PO BID Take with a meal. Carafate Liq (Sucralfate) 1 Gm/10 Ml Susp 1 Gm PO TID on empty stomach Metoprolol Tartrate 25 Mg Tab 25 Mg PO BID Simvastatin 40 Mg Tab 40 Mg PO HS Aspirin Children's (Aspirin) 81 Mg Chew 81 Mg CHEW DAILY Gabapentin 600 Mg Tab 600 Mg PO BID Tegretol (Carbamazepine) 200 Mg Tab 200 Mg PO BID Ranitidine (Ranitidine HCl) 150 Mg Tab 150 Mg PO DAILY Review of Systems General / Constitutional: Positive: Weight Loss, No: Fever Eyes: No: Visual changes HENT: No: Headaches Cardiovascular: No: Chest Pain or Discomfort Respiratory: No: Shortness of Breath Gastrointestinal: Positive: Loss of Appetite, No: Abdominal Pain Genitourinary: No: Dysuria Musculoskeletal: Positive: Weakness, Pain Skin: No Rash Neurologic: Positive: Weakness Psychiatric: No: Depression Endocrine: No: Polydipsia Hematologic/Lymphatic: No: Easy Bruising Physical Exam Narrative GENERAL: Thin cachectic well-developed patient in no apparent distress. SKIN: Focused skin assessment reveals no rash and nodules. Skin is Warm and dry. HEAD: Atraumatic. She has temporal wasting EYES: Pupils are bilaterally clouded over. No scleral icterus. No injection or drainage. ENT: No nasal bleeding or discharge. Mucous membranes pink and moist. NECK: Trachea midline. No JVD. CARDIOVASCULAR: Regular rate and rhythm. No murmur appreciated. RESPIRATORY: No accessory muscle use. Clear to auscultation. Breath sounds equal bilaterally. GASTROINTESTINAL: Abdomen soft, non-tender, nondistended. Hepatic and splenic margins not palpable. MUSCULOSKELETAL: Has left-sided BKA . No clubbing. No cyanosis. No edema. NEUROLOGICAL: Awake and alert. No obvious cranial nerve deficits. Motor grossly within normal limits. Normal speech. PSYCHIATRIC: Flat mood and affect; insight and judgment reduced. Data Data Last Documented VS Vital Signs Date Time Temp Pulse Resp B/P (MAP) Pulse Ox O2 Delivery O2 Flow Rate FiO2 07/21/17 14:28 109/82 (91) 07/21/17 12:47 98.3 86 16 95 Orders Orders Complete Blood Count With Diff (07/21/17 12:50) Comprehensive Metabolic Panel (07/21/17 12:50) Urinalysis - C+S If Indicated (07/21/17 12:50) Chest, Single Ap (07/21/17 ) Electrocardiogram (07/21/17 ) Urine Culture (07/21/17 14:05) Sodium Chlor 0.9% 1000 Ml Inj (Ns 1000 M (07/21/17 14:45) Labs Laboratory Tests Test 07/21/17 13:15 07/21/17 14:05 White Blood Count 4.5 TH/MM3 Red Blood Count 3.75 MIL/MM3 Hemoglobin 11.9 GM/DL Hematocrit 36.4 % Mean Corpuscular Volume 97.2 FL Mean Corpuscular Hemoglobin 31.8 PG Mean Corpuscular Hemoglobin Concent 32.7 % Red Cell Distribution Width 15.8 % Platelet Count 141 TH/MM3 Mean Platelet Volume 9.6 FL Neutrophils (%) (Auto) 65.8 % Lymphocytes (%) (Auto) 17.6 % Monocytes (%) (Auto) 14.3 % Eosinophils (%) (Auto) 1.0 % Basophils (%) (Auto) 1.3 % Neutrophils # (Auto) 3.0 TH/MM3 Lymphocytes # (Auto) 0.8 TH/MM3 Monocytes # (Auto) 0.6 TH/MM3 Eosinophils # (Auto) 0.0 TH/MM3 Basophils # (Auto) 0.1 TH/MM3 CBC Comment DIFF FINAL Differential Comment Blood Urea Nitrogen 25 MG/DL Creatinine 2.20 MG/DL Random Glucose 81 MG/DL Total Protein 5.6 GM/DL Albumin 2.4 GM/DL Calcium Level 7.9 MG/DL Alkaline Phosphatase 241 U/L Aspartate Amino Transf (AST/SGOT) 39 U/L Alanine Aminotransferase (ALT/SGPT) 12 U/L Total Bilirubin 0.5 MG/DL Sodium Level 137 MEQ/L Potassium Level 3.6 MEQ/L Chloride Level 110 MEQ/L Carbon Dioxide Level 16.6 MEQ/L Anion Gap 10 MEQ/L Estimat Glomerular Filtration Rate 22 ML/MIN Urine Collection Type CLEAN CATCH Urine Color YELLOW Urine Turbidity CLEAR Urine pH 5.5 Urine Specific Chandler 1.025 Urine Protein 300 OR GREATER mg/dL Urine Glucose (UA) NEG mg/dL Urine Ketones NEG mg/dL Urine Occult Blood TRACE Urine Nitrite NEG Urine Bilirubin NEG Urine Urobilinogen 0.2 MG/DL Urine Leukocyte Esterase TRACE Urine RBC 4-9 /hpf Urine WBC 15-19 /hpf Urine WBC Clumps FEW Urine Squamous Epithelial Cells 6-8 /hpf Urine Bacteria MOD /hpf Microscopic Urinalysis Comment CULTURE INDICATED Urine Collection Time 14:05 [facility] Medical Decision Making Medical Screen Exam Complete: Yes Emergency Medical Condition: Yes Medical Record Reviewed: Yes Differential Diagnosis Failure to thrive, cachexia, chemotherapy side effect Narrative Course I have reviewed the patient's electronic medical record. I reviewed her oncologist note which was dictated yesterday IV placed and labs sent Reviewed her chest x-ray. Shows a left-sided pleural effusion and a hint of pulmonary edema She is breathing comfortably with good saturations I reviewed her labs CBC normal Metabolic profile is similar to the one recently done. Creatinine is 2.2 and bicarb is low I gave her a liter of normal saline IV I reviewed her situation with oncologist coverage Dr. Archer The patient's chief complaint is wanting something to stimulate her appetite. I have written her a prescription for 5 days for Megace after discussion with Dr. Archer Patient is chronically ill, likely having some side effects from chemo. I do not think hospitalizing her is going to help her very much. I reviewed this with her and at bedside. The patient does not want to stay in the hospital. Diagnosis Primary Impression: Esophageal cancer, stage IIIA Additional Impressions: Poor appetite Prerenal azotemia Additional Instructions: The patient was advised to follow up with their physician and return if they worsen. Med/Other Pt SpecificInfo: Prescription(s) given Disposition: 01 DISCHARGE HOME Condition: Stable David Love MD Jul 21, 2017 13:35
[2017-07-21 13:36] LABS: CHLORIDE 110 MEQ/L (98-107); SODIUM (NA) 137 MEQ/L (136-145)
[2017-07-21 13:39] LABS: ALBUMIN 2.4 GM/DL (3.4-5.0); BICARBONATE 16.6 MEQ/L (21.0-32.0); CALCIUM 7.9 MG/DL (8.5-10.1)
[2017-07-21 13:40] LABS: BLOOD UREA NITROGEN 25 MG/DL (7-18); GLUCOSE,RANDOM 81 MG/DL (74-106)
[2017-07-21 13:42] LABS: ALT (GPT) 12 U/L (10-53)
[2017-07-21 13:51] LABS: ALKALINE PHOSPHATASE 241 U/L (45-117); AST (GOT) 39 U/L (15-37); GLOMERULAR FILTRATION RATE 22 ML/MIN (>89); TOTAL BILIRUBIN ADULT 0.5 MG/DL (0.2-1.0); TOTAL PROTEIN 5.6 GM/DL (6.4-8.2)
[2017-07-21 14:21] LABS: BLOOD, URINE TRACE (NEG); GLUCOSE,URINE NEG (NEG); KETONE, URINE NEG (NEG); NITRITE,URINE NEG (NEG); PH, URINE 5.5 (5.0-8.5); URINE COLOR YELLOW (YELLW/STRAW); URINE LEUKOCYTE ESTERASE TRACE (NEG)
[2017-07-21 14:27] LABS: BILIRUBIN, URINE NEG (NEG)
[2017-07-21 14:28] VITALS: BP 109/82
[2017-07-21 14:30] LABS: BACTERIA, URINE MOD /hpf; WBC, URINE 15-19 /hpf (0-5); WHITE BLOOD CELL CLUMPS FEW
[2017-07-21] MEDS ORDERED: SODIUM CHLOR 0.9% 1000 ML INJ 1,000 ML IV ONE (14:45)
[2017-07-21 16:07] VITALS: BP 119/87
--- NOTE | 2017-07-22 14:16 | EKG ---
Date Performed: 07/21/2017 Time Performed: 13:02:45 PTAGE: 67 years EKG: Sinus rhythm WITH SINUS ARRHYTHMIA MARKED LEFT AXIS DEVIATION INCOMPLETE RIGHT BUNDLE BRANCH BLOCK POSSIBLE ANTER IOR MYOCARDIAL INFARCTION MODERATE T-WAVE ABNORMALITY, CONSIDER LATERAL ISCHEMIA ABNORMAL ECG Compare d to PREVIOUS TRACING , the axis has shifted back into normal range. Lateral T-wave changes ar e more prominent. PREVIOUS TRACIN06/14/2017 21.42 DOCTOR: Rene Cantu Interpretating Date/Time 07/22/2017 14:14:11
== END 2017-07-21 16:40 | disposition home or self-care (01) ==
LOC: PHED 12:42
DX: C15.9 Malignant neoplasm of esophagus, unspecified (principal); R79.89 Other specified abnormal findings of blood chemistry; R63.0 Anorexia; B96.89 Other specified bacterial agents as the cause of diseases classified elsewhere; I49.9 Cardiac arrhythmia, unspecified; I45.10 Unspecified right bundle-branch block; I25.2 Old myocardial infarction; R94.31 Abnormal electrocardiogram [ECG] [EKG]; I48.91 Unspecified atrial fibrillation
CPT/HCPCS: 71045; 80053; 81001; 85025; 87086; 93005; 99285; J7030